=== PATIENT | female | born 1960 | race Caucasian/White ===

== ENCOUNTER 2016-06-28 17:17 | Emergency (ER) | payer OTHER ==
[~2016-06-28] VITALS: Ht 157.5 cm; Wt 136.1 kg
[~2016-06-28 17:17] MED LIST: CYMBALTA60 M1 PO; DIAZEPAM5 MG PO; DULOXETINE30 MG PO; HYDROXYCHLOROQ200 MG PO; LISINOPRIL20 MG PO; LISINOPRIL40 MG PO; MORPHINE SULFA PO; OXYCODONE HYDRO15 MG PO; PATADAY 2.5 ML2.5 ML OPH; SENOKOT S 50 MG1 TAB PO; TRAZODONE HCL50 M1 PO; TRIAMCINOLONE A15 G3 TOP; VALACYCLOVIR1000 MG PO
[2016-06-28] MEDS ORDERED: MIRALAX17 G1 PO (19:04)
--- NOTE | 2016-06-28 19:04 | ED UPPER/LOWER EXTREMITY COMPL ---
History of Present Illness General Chief Complaint: Lower Extremity Problems Stated Complaint: LEG DRAINAGE Source: patient, family Exam Limitations: no limitations Vital Signs & Intake/Output Vital Signs & Intake/Output Vital Signs Date Time Temp Pulse Resp B/P Pulse O2 O2 Flow FiO2 Ox Delivery Rate 06/28 2014 96 Room Air 06/28 2005 97.0 85 20 152/76 95 Room Air 06/28 1728 98.2 90 16 169/96 96 Room Air Allergies Coded Allergies: NO KNOWN ALLERGIES (06/28/16) Reconcile Medications Duloxetine HCl (Cymbalta) 60 MG CAPSULE.DR 1 CAP PO DAILY ANXIETY (Reported) Hydroxychloroquine Sulfate 200 MG TAB 1 TAB PO DAILY LUPUS (Reported) Lisinopril 40 MG TAB 1 TAB PO DAILY BP (Reported) Morphine Sulfate (Morphine Sulfate ER) 120 MG CPMP.24HR 1 TAB PO DAILY PAIN ( Reported) Oxycodone Hydrochloride 15 MG TAB 1-2 TAB PO Q4-6H PRN PAIN (Reported) Polyethylene Glycol 3350 (Miralax) 17 GRAM POWD.PACK 1 PAC PO PRN CONSTIPATION (Reported) dissolve in water Triage Note: COMPLAINS OF R SIDE LOWER EXTREMITY REDNESS AND CLEAR FLUID DRAINAGE. SAW HER VEING DOCTOR 2 WEEKS AGO, STATES THAT HE CAN'T SEE HER INTILL MONDAY AND PMD TOLD HER TO COME TO ER. Triage Nurses Notes Reviewed? yes Onset: Gradual Duration: week(s): (1) Timing: recent history Severity: moderate Severity Numbers: 6 Pain/Injury Location: Bilateral: Leg. Method of Injury: unknown No Modifying Factors: none HPI: Patient is a 55-year-old female with history of bilateral leg edema and vascular issues presenting to the emergency department chief complaining of increasing lower extremity edema, right lower extremity redness and weeping this pain getting worse over the past one week. Denies any shortness of breath chest pain or palpitations. She tried calling her vascular doctor who told her to come into the emergency department for evaluation of CHF. Patient denies history of CHF. She reports lower extremity edema has increased over the past several days. Unsure about any weight changes. Denies any coughing. No trouble sleeping. her lower extremity is or red during the day because a rub on things, they become within normal range while she sleeps. (MEME GRANDE,OLIVIA) Past History Travel History Traveled to [place] past 21 day No Medical History Any Pertinent Medical History? see below for history Neurological: NONE EENT: DEVIATED SEPTUM Cardiovascular: hypertension Respiratory: NONE Gastrointestinal: NONE Hepatic: NONE Renal: NONE Musculoskeletal: fibromyalgia, rheumatoid arthritis, LUPUS Psychiatric: NONE Endocrine: NONE Other Medical Hx: morbid obesity History of MRSA: No History of VRE: No History of CDIFF: No Surgical History Surgical History: right total knee replacement Psychosocial History Who do you live with Spouse Services at Home None What is your primary language Moldovan Tobacco Use: Never used ETOH Use: denies use Illicit Drug Use: denies illicit drug use Family History Family History, If Any: FATHER (lung cancer). grandmother (HTN, DM). Hx Contributory? No (OLIVIA MATTA) Review of Systems Review of Systems Constitutional: Reports: no symptoms. Comments Review of systems: See HPI, All other systems negative. Constitutional, no chills fever or weight loss HEENT: No visual changes no sore throat no congestion Cardiovascular: No chest pain ,palpitation , orthopnea Skin, no jaundice no rashes Respiratory: No dyspnea cough sputum or hemoptysis GI: No nausea no vomiting : No dysuria No hematuria Muscle skeletal: no back pain, no neck pain, Neurologic: No numbness no confusion Psych: No stress anxiety or depression,. Heme/endocrine: No bruising no bleeding no polyuria or polydipsia Immunology: No splenectomy or history of AIDS (OLIVIA MATTA) Physical Exam Physical Exam General Appearance: well developed/nourished, no apparent distress, alert, awake , comfortable, obese Comments: obese person in no acute distress HEENT: Pupils equally round and reactive to light and accommodation. Nose is atraumatic. Neck: Normal inspection Back: Nontender Cardiovascular: Regular rate and rhythms no murmurs rubs or gallops, normal JVP Respiratory: Chest nontender. No respiratory distress.breath sounds clear to auscultation bilaterally Extremity: Extensive edema and lower extremity bilaterally, nonpitting, no calf tenderness to palpation, normal and equal pulses. no blister or obvious weeping. pedal pulses are 1 plus bilaterally. Neuro: Alert oriented x3, motor sensory normal Skin: Blanchable erythema noted on the lower extremities from mid iglesisa down to the dorsum of the feet bilaterally. Psych: Mood and affect is normal, memory and judgment is normal. (OLIVIA MATTA) Progress Differential Diagnosis: lymphedema, cellulitis, DVT, CHF Plan of Care: Orders Procedure Date/time Status COMPREHENSIVE METABOLIC PANEL 06/28 1902 Complete CBC WITHOUT DIFFERENTIAL 06/28 1902 Complete B-TYPE NATRIURETIC PEP (BNP) 06/28 1902 Complete Laboratory Tests 06/28/16 2000: Anion Gap 8, Estimated GFR > 60, BUN/Creatinine Ratio 26.7 H, Glucose 102 H, Calcium 10.4 H, Total Bilirubin 0.4, AST 30, ALT 15, Alkaline Phosphatase 67, Uay-C-Wdtrfxzvfbb Pept 63.5, Total Protein 8.4 H, Albumin 3.7, Globulin 4.7 H, Albumin/Globulin Ratio 0.8 L, CBC w Diff NO MAN DIFF REQ, RBC 4.07 L, MCV 86.3 , MCH 28.5, RDW 15.2 H, MPV 7.6, Gran % 54.7, Lymphocytes % 31.3, Monocytes % 9.8 H, Eosinophils % 3.3, Basophils % 0.9, Absolute Granulocytes 3.4, Absolute Lymphocytes 1.9, Absolute Monocytes 0.6, Absolute Eosinophils 0.2, Absolute Basophils 0.1, PUBS MCHC 33.0 Diagnostic Imaging: Viewed by Me: Radiology Read, Ultrasound. Discussed w/RAD: Radiology Read, Ultrasound. Hand-Off Endorsed To: ELLIS CRAVEN,POONAM Atwood Endorsed Time: 1948 Pending: labs (MEME RGANDE,OLIVIA) Radiology Impression: PATIENT: LEO SALAZAR PRESENT AGE: 55 PATIENT ACCOUNT NO: [id number] : 56 LOCATION: [facility] ORDERING PHYSICIAN: OLIVIA GRANDE SERVICE DATE: 06/28/16 EXAM TYPE: US - US-EXT BILAT VENOUS DOPPLER EXAMINATION: US TRIPLEX LOWER EXTREMITY, BILATERAL CLINICAL INFORMATION: Edema and pain in lower leg. COMPARISON: None. TECHNIQUE: Color-flow triplex imaging with spectral analysis and compression Doppler were performed on the bilateral lower extremities. The study is limited due to patient body habitus. FINDINGS: Respiratory variation, normal compression and augmented flow are noted throughout the bilateral lower extremities. The visualized common femoral vein, superficial femoral vein, profunda femoral vein, popliteal vein and mid calf peroneal and posterior tibial venous segments show no evidence of deep venous thrombosis. There is no Mckay's cyst. IMPRESSION: Normal triplex scan without evidence of deep venous thrombosis involving the bilateral lower extremities. DICTATED BY: POONAM KWONG MD DATE/TIME DICTATED :06/28/161949 FRONT END ARCHITECT:KARIN DATE/TIME TRANSCRIBED:06/28/161949 CONFIDENTIAL, DO NOT COPY WITHOUT APPROPRIATE AUTHORIZATION. < Electronically signed in Other Vendor System> SIGNED BY: POONAM KWONG MD 06/28/161954 CXR Impression: PATIENT: LEO SALAZAR PRESENT AGE: 55 PATIENT ACCOUNT NO: [id number] : 56 LOCATION: [facility] ORDERING PHYSICIAN: OLIVIA GRANDE SERVICE DATE: 06/28/16 EXAM TYPE: RAD - XRY-CHEST XRAY, PA AND LATERAL EXAMINATION: XR CHEST CLINICAL INFORMATION: Cardiomegaly. Leg edema. COMPARISON: None. TECHNIQUE: AP and lateral views of the chest were obtained. FINDINGS: Lungs are clear. No pulmonary vascular congestion. No infiltrate or pleural effusion. The cardiac and mediastinal contours are normal. There are multilevel degenerative changes of dorsal spine. IMPRESSION: No acute abnormality of the chest. DICTATED BY: JOHNATHON NEGRON MD DATE/TIME DICTATED:06/28/161951 FRONT END ARCHITECT:KARIN DATE/TIME TRANSCRIBED:1951 CONFIDENTIAL, DO NOT COPY WITHOUT APPROPRIATE AUTHORIZATION. < Electronically signed in Other Vendor System> SIGNED BY: JOHNATHON NEGRON MD 1956 Comments: Labs, x-ray and ultrasound have been discussed with patient and her . Questions have been answered. They feel comfortable going home. (ELLIS CRAVEN,POONAM Atwood) Departure Departure Disposition: HOME OR SELF CARE Condition: Stable Clinical Impression Primary Impression: Leg edema Qualifiers: Laterality: bilateral Qualified Code: R60.0 - Localized edema Referrals: GRAYSON CRAVEN,ERIS Vences (PCP/Family) Departure Forms: Customer Survey General Discharge Information (OLIVIA MATTA) Departure Additional Instructions: KEEP UP HE GOOD WORK WITH WALKING A MILE AND A HALF BUT KEEP YOUR LEGS ELEVATED WHEN YOU ARE NOT ON THEM RETURN IF SYMPTOMS WORSEN OR NEEDED PA/TECHNOLOGY CONSULTANT Co-Sign Statement Statement: ED Attending supervision documentation- [X] I saw and evaluated the patient. I have also reviewed all the pertinent lab results and diagnostic results. I agree with the findings and the plan of care as documented in the PA's/TECHNOLOGY CONSULTANT's documentation. [X] I have reviewed the ED Record and agree with the PA's/TECHNOLOGY CONSULTANT's documentation. [] Additions or exceptions (if any) to the PAs/TECHNOLOGY CONSULTANT's note and plan are summarized below: [] (ELLIS CRAVEN,POONAM Atwood)
--- NOTE | 2016-06-28 19:55 | ULTRASOUND REPORT ---
EXAMINATION: US TRIPLEX LOWER EXTREMITY, BILATERAL CLINICAL INFORMATION: Edema and pain in lower leg. COMPARISON: None. TECHNIQUE: Color-flow triplex imaging with spectral analysis and compression Doppler were performed on the bilateral lower extremities. The study is limited due to patient body habitus. FINDINGS: Respiratory variation, normal compression and augmented flow are noted throughout the bilateral lower extremities. The visualized common femoral vein, superficial femoral vein, profunda femoral vein, popliteal vein and mid calf peroneal and posterior tibial venous segments show no evidence of deep venous thrombosis. There is no Mckay's cyst. IMPRESSION: Normal triplex scan without evidence of deep venous thrombosis involving the bilateral lower extremities.
--- NOTE | 2016-06-28 19:57 | RADIOLOGY REPORT ---
EXAMINATION: XR CHEST CLINICAL INFORMATION: Cardiomegaly. Leg edema. COMPARISON: None. TECHNIQUE: AP and lateral views of the chest were obtained. FINDINGS: Lungs are clear. No pulmonary vascular congestion. No infiltrate or pleural effusion. The cardiac and mediastinal contours are normal. There are multilevel degenerative changes of dorsal spine. IMPRESSION: No acute abnormality of the chest.
[2016-06-28 20:14] LABS: ABSOLUTE BASOPHIL COUNT 0.1 /CUMM (0.0-0.2); ABSOLUTE EOSINOPHIL COUNT 0.2 /CUMM (0.0-0.7); ABSOLUTE GRANULOCYTE CT 3.4 /CUMM (1.4-6.5); ABSOLUTE LYMPH COUNT 1.9 /CUMM (1.2-3.4); ABSOLUTE MONOCYTE COUNT 0.6 /CUMM (0.10-0.60); BASOPHIL % 0.9 % (0.0-2.0); EOSINOPHIL % 3.3 % (0-5); GRANULOCYTE % 54.7 % (42.2-75.2); HEMATOCRIT 35.1 % (37-47); MEAN CORPUSCULAR HGB 28.5 PG (27.0-31.0); MEAN CORPUSCULAR VOLUME 86.3 FL (81.0-99.0); MEAN PLATELET VOLUME 7.6 FL (7.4-10.4); PLATELET COUNT 265 /CUMM (130-400); RBC DISTRIBUTION WIDTH 15.2 % (11.5-14.5); RED BLOOD CELL CT 4.07 /CUMM (4.20-5.40); WHITE BLOOD CELL COUNT 6.2 /CUMM (4.8-10.8)
[2016-06-28 20:59] VITALS: BP 175/84
== END 2016-06-28 21:03 ==
LOC: ERH 17:17
PROVIDERS: Physician Assistant
DX: R60.0 Localized edema (principal)
CPT/HCPCS: 93970

== ENCOUNTER 2016-08-05 22:13 | Emergency (ER) | payer OTHER ==
[~2016-08-05] VITALS: Ht 157.5 cm; Wt 136.1 kg
[~2016-08-05 22:13] MED LIST changes: +MIRALAX17 G1 PO
[2016-08-05 22:16] VITALS: BP 179/98
--- NOTE | 2016-08-05 22:36 | ED UPPER/LOWER EXTREMITY COMPL ---
History of Present Illness General Chief Complaint: Lower Extremity Problems Stated Complaint: "RT CALF PAIN,SWELLING,REDNESS,WARM TO TOUCH" Source: patient Exam Limitations: no limitations Vital Signs & Intake/Output Vital Signs & Intake/Output Vital Signs Date Time Temp Pulse Resp B/P Pulse O2 O2 Flow FiO2 Ox Delivery Rate 08/05 2216 98.0 88 18 179/98 94 Room Air Allergies Coded Allergies: NO KNOWN ALLERGIES (06/28/16) Reconcile Medications Duloxetine HCl (Cymbalta) 60 MG CAPSULE.DR 1 CAP PO DAILY ANXIETY (Reported) Hydroxychloroquine Sulfate 200 MG TAB 1 TAB PO DAILY LUPUS (Reported) Lisinopril 40 MG TAB 1 TAB PO DAILY BP (Reported) Lotrisone (Lotrisone Cream) 1 %-0.05 % CREAM..G. 1 CAROL ANN TOP TID yeast infection apply to affected area(s) x 10 days Morphine Sulfate (Morphine Sulfate ER) 120 MG CPMP.24HR 1 TAB PO DAILY PAIN ( Reported) Oxycodone Hydrochloride 15 MG TAB 1-2 TAB PO Q4-6H PRN PAIN (Reported) Polyethylene Glycol 3350 (Miralax) 17 GRAM POWD.PACK 1 PAC PO PRN CONSTIPATION (Reported) dissolve in water Triage Note: PT TO TRIAGE WITH C/O R CALF SWELLING, REDNESS, AND PAIN 01/02 SINCE 07/28 WHEN PT HAD SCLEROTHERAPY DONE. PT HAS NO OTHER COMPLAINTTS, VSS. Triage Nurses Notes Reviewed? yes Onset: Gradual Duration: day(s):, getting worse Timing: recent history Severity: moderate Pain/Injury Location: Right: Leg. Method of Injury: right lower extemity rash x 2-3 days No Modifying Factors: none Modifying Factors: Worsens With: other (worse w/ itching). Associated Symptoms: redness HPI: 55-year-old woman with chronic lymphedema in both extremities presents with a rash on her distal right iglesias. She notes that the rash is red and itchy. She notes that it has been spreading away from her body towards the ankle. It is not tender. She has no increased swelling. She has no fever or chills. She has no other concerns. Past History Travel History Traveled to [place] past 21 day No Medical History Any Pertinent Medical History? see below for history Neurological: NONE EENT: DEVIATED SEPTUM Cardiovascular: hypertension Respiratory: NONE Gastrointestinal: NONE Hepatic: NONE Renal: NONE Musculoskeletal: fibromyalgia, rheumatoid arthritis, LUPUS Psychiatric: NONE Endocrine: NONE Other Medical Hx: morbid obesity History of MRSA: No History of VRE: No History of CDIFF: No Surgical History Surgical History: right total knee replacement Psychosocial History Who do you live with Spouse Services at Home None What is your primary language French Tobacco Use: Never used Family History Family History, If Any: FATHER (lung cancer). grandmother (HTN, DM). Hx Contributory? No Review of Systems Review of Systems Constitutional: Reports: no symptoms. EENTM: Reports: no symptoms. Respiratory: Reports: no symptoms. Cardiovascular: Reports: no symptoms. Gastrointestinal/Abdominal: Reports: no symptoms. Genitourinary: Reports: no symptoms. Musculoskeletal: Reports: no symptoms. Skin: Reports: no symptoms. Neurological/Psychological: Reports: no symptoms. Hematologic/Endocrine: Reports: no symptoms. Immunological: Reports: no symptoms. All Other Systems: Reviewed and Negative Physical Exam Physical Exam General Appearance: well developed/nourished, mild distress Head: atraumatic Eyes: Bilateral: normal appearance. Ears, Nose, Throat: normal pharynx, normal ENT inspection, hearing grossly normal Neck: normal inspection, supple Cardiovascular/Respiratory: regular rate/rhythm Back: normal inspection Leg Left: chronic lymphedema without signs of infection. Leg Right: blanching erythematous rash on the distal right lower extremity approximately 10 x 10 cm with satellite lesions approximately. It is not warm to touch. It is not tender to palpation. There is no increased edema. Skin: intact, normal color, warm/dry Lymphatic: no anterior cervical malick Progress Differential Diagnosis: cellulitis, yeast infection, versus other Plan of Care: Her rash is most consistent with a fungal skin infection. It is not tender or warm to palpation I doubt DVT given that her edema is symmetric and the same between both legs. I prescribed time focal Lotrisone and advocated close follow -up symptoms worsen. Departure Departure Disposition: HOME OR SELF CARE Condition: Stable Clinical Impression Primary Impression: Yeast infection of the skin Referrals: ERIS GALICIA MD (PCP/Family) Departure Forms: Customer Survey General Discharge Information Prescriptions: Current Visit Scripts Lotrisone (Lotrisone Cream) 1 CAROL ANN TOP TID #30 GM apply to affected area(s) x 10 days
[2016-08-05] MEDS ORDERED: LOTRISONE CREAM15 G1 TOP (22:38)
== END 2016-08-05 23:29 ==
LOC: ERH 22:13
DX: B37.2 Candidiasis of skin and nail (principal)

== ENCOUNTER 2016-09-04 20:35 | Emergency (ER) | payer OTHER ==
[~2016-09-04 20:35] MED LIST changes: +LOTRISONE CREAM15 G1 TOP
[2016-09-04 20:39] VITALS: BP 155/95
--- NOTE | 2016-09-04 20:56 | ED SKIN/ALLERGY COMPLAINT ---
History of Present Illness General Chief Complaint: Skin Rash/ Abcess Stated Complaint: SKIN RASH Source: patient Exam Limitations: no limitations Vital Signs & Intake/Output Vital Signs & Intake/Output Vital Signs Date Time Temp Pulse Resp B/P Pulse O2 O2 Flow FiO2 Ox Delivery Rate 09/04 2038 98.0 86 18 155/95 95 Room Air Allergies Coded Allergies: NO KNOWN ALLERGIES (06/28/16) Reconcile Medications Duloxetine HCl (Cymbalta) 60 MG CAPSULE.DR 1 CAP PO DAILY ANXIETY (Reported) Hydroxychloroquine Sulfate 200 MG TAB 1 TAB PO DAILY LUPUS (Reported) Lisinopril 40 MG TAB 1 TAB PO DAILY BP (Reported) Lotrisone (Lotrisone Cream) 1 %-0.05 % CREAM..G. 1 CAROL ANN TOP TID yeast infection apply to affected area(s) x 10 days Morphine Sulfate (Morphine Sulfate ER) 120 MG CPMP.24HR 1 TAB PO DAILY PAIN ( Reported) Oxycodone Hydrochloride 15 MG TAB 1-2 TAB PO Q4-6H PRN PAIN (Reported) Polyethylene Glycol 3350 (Miralax) 17 GRAM POWD.PACK 1 PAC PO PRN CONSTIPATION (Reported) dissolve in water Triage Note: COMPLAINS OF ITCHY RASH TO BILATERAL LOWER EXTREMITIES, WAS DIAGNOSED WITH FUNGAL INFECTION AND WAS PRESCRIBED CREAM, HAS APPOINTMENT WITH GLUING MACHINE FEEDER IN 2 WEEKS Triage Nurses Notes Reviewed? yes Onset: Gradual Duration: week(s):, waxing and waning Timing: recent history Severity: mild Location: lower extremity rash Modifying Factors: Improves With: topical steroids. Associated Symptoms: redness and itching HPI: 56-year-old woman with significant lymphedema presents with a rash on the distal ends of both lower extremities. She states that I previously given her prescription of Lotrisone which she was taking 3 times a day. She states the medication helped a great deal. However, she ran out of her medication. She states that her primary care doctor do not feel comfortable refilling the medication. She has appointment with the offset printing pressmen in several weeks. She presents here hoping for refill of her Lotrisone. She has no pain, increased swelling, fever, she is otherwise well. Past History Travel History Traveled to [place] past 21 day No Medical History Any Pertinent Medical History? see below for history Neurological: NONE EENT: DEVIATED SEPTUM Cardiovascular: hypertension Respiratory: NONE Gastrointestinal: NONE Hepatic: NONE Renal: NONE Musculoskeletal: fibromyalgia, rheumatoid arthritis, LUPUS Psychiatric: NONE Endocrine: NONE Other Medical Hx: morbid obesity History of MRSA: No History of VRE: No History of CDIFF: No Surgical History Surgical History: right total knee replacement Psychosocial History Who do you live with Spouse Services at Home None What is your primary language Palestinian Tobacco Use: Never used ETOH Use: denies use Illicit Drug Use: denies illicit drug use Family History Family History, If Any: FATHER (lung cancer). grandmother (HTN, DM). Hx Contributory? No Review of Systems Review of Systems Constitutional: Reports: no symptoms. EENTM: Reports: no symptoms. Respiratory: Reports: no symptoms. Cardiovascular: Reports: no symptoms. GI: Reports: no symptoms. Genitourinary: Reports: no symptoms. Musculoskeletal: Reports: no symptoms. Skin: Reports: no symptoms. Neurological/Psychological: Reports: no symptoms. Hematologic/Endocrine: Reports: no symptoms. Immunologic/Allergic: Reports: no symptoms. All Other Systems: Reviewed and Negative Physical Exam Physical Exam General Appearance: well developed/nourished, mild distress Head: atraumatic Ears, Nose, Throat: normal pharynx, normal ENT inspection Neck: normal inspection, supple, full range of motion Respiratory: normal breath sounds, chest non-tender, no respiratory distress, quiet respiration, lungs clear Extremities: skin changes characteristic of a fungal skin infection. No sign of worsening edema. No tenderness. No sign of bacterial type infection. Neurologic/Psych: no motor/sensory deficits, awake, alert, oriented x 3 Skin: intact, normal color Progress Differential Diagnosis: skin infection versus chronic changes versus venous stasis versus other. Plan of Care: Refill of Lotrisone given. Departure Departure Disposition: HOME OR SELF CARE Condition: Stable Clinical Impression Primary Impression: Fungal skin infection Referrals: GALICIA ERIS CRAVEN (PCP/Family) Departure Forms: Customer Survey General Discharge Information Prescriptions: Current Visit Scripts Lotrisone (Lotrisone Cream) 1 CAROL ANN TOP TID #30 GM apply to affected area(s) x 10 days
[2016-09-04] MEDS ORDERED: LOTRISONE CREAM15 G1 TOP (20:57)
== END 2016-09-04 21:25 ==
LOC: ERH 20:35
DX: B36.9 Superficial mycosis, unspecified (principal)

== ENCOUNTER 2016-10-11 19:26 | Emergency (ER) | payer OTHER ==
[~2016-10-11] VITALS: Ht 157.5 cm; Wt 136.1 kg
--- NOTE | 2016-10-11 21:56 | ED GENERAL ADULT ---
History of Present Illness General Chief Complaint: Lower Extremity Problems Stated Complaint: BILATERAL LEG WEEPING PER PT Source: patient, family, old records Exam Limitations: no limitations Vital Signs & Intake/Output Vital Signs & Intake/Output Vital Signs Date Time Temp Pulse Resp B/P Pulse O2 O2 Flow FiO2 Ox Delivery Rate 10/11 2001 97.9 77 18 157/91 97 Room Air Allergies Coded Allergies: NO KNOWN ALLERGIES (06/28/16) Reconcile Medications Duloxetine HCl (Cymbalta) 60 MG CAPSULE.DR 1 CAP PO DAILY ANXIETY (Reported) Morphine Sulfate (Morphine Sulfate ER) 120 MG CPMP.24HR 1 TAB PO DAILY PAIN ( Reported) Oxycodone Hydrochloride 15 MG TAB 1-2 TAB PO Q4-6H PRN PAIN (Reported) Polyethylene Glycol 3350 (Miralax) 17 GRAM POWD.PACK 1 PAC PO PRN CONSTIPATION (Reported) dissolve in water Triage Note: RECEIVED 56 YO FEMALE C/O WEEPING LOWER EXTREMITY EDEMA X 3 WEEKS. PT HAS AN APPOINTMENT THIS COMING MONDAY WITH VEIN DR, DR PITT. PT WAS HERE 3 MONTHS AGO FOR SAME. PT WAS HERE ABOUT A MONTH AND A HALF AGO, SEEN DR LIMA AND DX WITH FUNGAL INFECTION OF LOWER EXTREMITIES. Triage Nurses Notes Reviewed? yes HPI: Patient is a 56-year-old female presents complaining of bilateral lower extremity edema and at times fluid weeping from her legs. Patient reports that she has had chronic lower extremity edema that has been worsening over the past 1-2 weeks. Patient was placed on 20 mg of frusemide approximately 1.5 weeks ago by her vascular specialist Dr. Clemens. Patient has an appointment with her vascular specialist on . Patient reports that she also has a infection to her left lower extremity that she has been using an ointment for which has helped him Under control. Patient is an appointment with her filter screen cleaner on October 24. Swelling is currently severe. Patient denies chest pain, dyspnea. Past History Travel History Traveled to [place] past 21 day No Medical History Any Pertinent Medical History? see below for history Neurological: NONE EENT: DEVIATED SEPTUM Cardiovascular: hypertension Respiratory: NONE Gastrointestinal: NONE Hepatic: NONE Renal: NONE Musculoskeletal: fibromyalgia, rheumatoid arthritis, LUPUS Psychiatric: NONE Endocrine: NONE Other Medical Hx: morbid obesity History of MRSA: No History of VRE: No History of CDIFF: No Surgical History Surgical History: right total knee replacement Psychosocial History Who do you live with Spouse Services at Home None What is your primary language Korean Tobacco Use: Never used Family History Family History, If Any: FATHER (lung cancer). grandmother (HTN, DM). Hx Contributory? No Review of Systems Review of Systems Constitutional: Denies: chills, fever. EENTM: Reports: no symptoms. Respiratory: Denies: cough, short of breath. Cardiovascular: Reports: peripheral edema (chronic). Denies: chest pain. GI: Denies: abdominal pain, nausea, vomiting. Skin: Reports: see HPI. Neurological/Psychological: Reports: no symptoms. Hematologic/Endocrine: Reports: no symptoms. Immunologic/Allergic: Reports: no symptoms. Physical Exam Physical Exam General Appearance: well developed/nourished, alert, awake Head: atraumatic, normal appearance Eyes: Bilateral: normal appearance, PERRL, EOMI. Ears, Nose, Throat: hearing grossly normal Neck: normal inspection, supple, full range of motion Respiratory: normal breath sounds, chest non-tender, no respiratory distress, lungs clear Cardiovascular: regular rate/rhythm (no appreciable murmur) Back: normal inspection, normal range of motion Extremities: 4+ bilateral lower extremity edema. Minimal serous fluid weeping from the lower extremities. Skin thickening to the right posterior leg. Mild red maculopapular rash to the left mid pretibial area. Neurologic/Psych: awake, alert, oriented x 3 Skin: see extremities exam Core Measures ACS in differential dx? No CVA/TIA Diagnosis: No Severe Sepsis Present: No Septic Shock Present: No Progress Differential Diagnoses I considered the following diagnoses in my evaluation of the patient: Venous insufficiency, congestive heart failure, lymphedema Plan of Care: No apparent signs of cellulitis. Patient has an appointment with her vascular specialist on October 13. Will have patient increase her dose of Lasix between now and then, elevate her legs, and follow-up closely outpatient. Labs and imaging deferred. Initial ED EKG: none Departure Departure Time of Disposition: 2153 Disposition: HOME OR SELF CARE Condition: Stable Clinical Impression Primary Impression: Bilateral lower extremity edema Referrals: DWAYNE CRAVEN,GRACIA GALICIA MD,ERIS Vences (PCP/Family) Additional Instructions: Follow up with Dr. Isaacs on as scheduled. Increase your Furosemide( lasix) dose to 40mg a day until you see the vascular specialist. Elevate your legs as much as possible when you are at rest. Return to the ER if fevers, redness spreading, difficulty breathing Departure Forms: Customer Survey General Discharge Information Critical Care Note Critical Care Note Critical Care Time: non-applicable
[2016-10-11 22:01] VITALS: BP 182/85
== END 2016-10-11 22:06 ==
LOC: ERH 19:26
DX: R60.0 Localized edema (principal)

== ENCOUNTER 2016-10-22 20:07 | Emergency (ER) | payer OTHER ==
--- NOTE | 2016-10-22 20:48 | ED UPPER/LOWER EXTREMITY COMPL ---
History of Present Illness General Chief Complaint: Laceration Procedure Stated Complaint: " LT LEG LAC" Source: patient, old records Exam Limitations: no limitations Vital Signs & Intake/Output Vital Signs & Intake/Output Vital Signs Date Time Temp Pulse Resp B/P B/P Pulse O2 O2 Flow FiO2 Mean Ox Delivery Rate 10/22 2150 97.5 78 18 142/84 97 Room Air Room Air 10/22 2030 97.9 80 16 152/85 96 Room Air Allergies Coded Allergies: NO KNOWN ALLERGIES (UNKNOWN 10/22/16) Reconcile Medications Duloxetine HCl (Cymbalta) 60 MG CAPSULE.DR 1 CAP PO DAILY ANXIETY (Reported) Morphine Sulfate (Morphine Sulfate ER) 120 MG CPMP.24HR 1 TAB PO DAILY PAIN ( Reported) Oxycodone Hydrochloride 15 MG TAB 1-2 TAB PO Q4-6H PRN PAIN (Reported) Polyethylene Glycol 3350 (Miralax) 17 GRAM POWD.PACK 1 PAC PO PRN CONSTIPATION (Reported) dissolve in water Triage Note: TRIAGE; PT TO ED STATING SHE ACCIDENTALLY CUT HER LEFT LEG WITH A KNIFE EARLIER. HAD A DSG IN PLACE AND WAS TRYING TO GET IT OFF SO SHE USED A KNIFE. NOT VISUALIZED IN TRIAGE. SOME BLEEDING NOTED ON DSG. Triage Nurses Notes Reviewed? yes Onset: Abrupt Duration: hour(s): (1), constant Timing: recent history Severity: mild Severity Numbers: 4 Pain/Injury Location: Left: Leg. Method of Injury: laceration No Modifying Factors: none Associated Symptoms: none HPI: 56-year-old male presents emergency room status post sustaining a laceration to her left leg just prior to arrival when she accidentally cut it with a knife after she was attempting to take a dressing off of her leg. Her last tetanus is unknown. She is complaining of mild aching pain to the region no other injury no numbness or tingling. No difficulty with weightbearing on the leg. She is not taken anything for symptomsassociated symptoms modifying factors or radiation of pain. (BRIGHT BAR) Past History Travel History Traveled to [place] past 21 day No Medical History Any Pertinent Medical History? see below for history Neurological: NONE EENT: DEVIATED SEPTUM Cardiovascular: hypertension Respiratory: NONE Gastrointestinal: NONE Hepatic: NONE Renal: NONE Musculoskeletal: fibromyalgia, rheumatoid arthritis, LUPUS Psychiatric: NONE Endocrine: NONE Other Medical Hx: morbid obesity History of MRSA: No History of VRE: No History of CDIFF: No Surgical History Surgical History: right total knee replacement Psychosocial History Who do you live with Spouse Services at Home None What is your primary language Montenegrin Tobacco Use: Never used Family History Family History, If Any: FATHER (lung cancer). grandmother (HTN, DM). Hx Contributory? No (BRIGHT BAR) Review of Systems Review of Systems Constitutional: Reports: see HPI. All Other Systems: Reviewed and Negative Comments Review of systems: See HPI, All other systems negative. Constitutional, no chills no fever, no malaise no weight loss HEENT: No visual changes no sore throat no congestion, no ear pain Cardiovascular: No chest pain , no palpitation , no orthopnea Skin: no rashes, no change in skin Respiratory: No dyspnea no cough no sputum no hemoptysis GI: No nausea no vomiting, no diarrhea, no bloating/constipation : No dysuria No hematuria, no frequency, no discharge Muscle skeletal: No joint pain, no joint swelling, no back pain, no neck pain, Neurologic: No numbness no confusion, no headache Psych: No stress no depression,. Heme/endocrine: No bruising no bleeding Immunology: No lymphadenopathy (BRIGHT BAR) Physical Exam Physical Exam General Appearance: well developed/nourished, no apparent distress, alert, awake Comments: Morbidly obese female patient in no apparent distress. HEENT: Atraumatic, extraocular motion intact Neck: Supple, FROM Back: FROM Cardiovascular: Regular rate and rhythms no murmurs Respiratory: No respiratory distress. Patient speaking in full complete sentences. Breath sounds clear to auscultation bilaterally: NO W/R/R Upper Extremities: full range of motion Hip/Pelvis: Atraumatic/Stable. FROM. Knee: Atraumatic/stable. FROM. No joint swelling Leg: He is a 0.5 cm skin abrasion noted to the left medial lower leg no active bleeding, there are no other lacerations or abrasions to the skin Nontender. 4+ pitting edema bilaterally edema, 5 out of 5 strength in the lower extremity, normal dorsiflexion of great toe bilaterally, gross sensation is intact, Ankle/Foot: Atraumatic/stable. Skin intact. FROM. No swelling, no effusion. No laxity on exam Pulses: Normal/equal DP/PT pulses bilaterally. Brisk cap refill Neuro: awake, alert, and oriented to person, place and time. There were no obvious focal neurologic abnormalities. Skin: Warm & dry;No appreciable rash on exposed skin Psych: Mood affect normal, normal memory normal judgment. (BRIGHT BAR) Progress Differential Diagnosis: cellulitis, compartment syndrome, contusion, fracture, sprain, tendon injury Plan of Care: Current Medications Sig/Deuce Start time Last Medication Dose Stop Time Status Admin Tetanus/Diphtheria 0.5 ML ONCE ONE 10/22 2114 UNVr Toxoids Adsorbed 10/23 2115 (Decavac) The wound was thoroughly irrigated with normal saline Betadine peroxide. Dermabond was applied to the wound, sterile dressing applied The wound edges were approximated well (BRIGHT BAR) Departure Departure Time of Disposition: 2105 Disposition: HOME OR SELF CARE Condition: Stable Clinical Impression Primary Impression: Leg laceration Referrals: ERIS GALICIA MD (PCP/Family) Additional Instructions: continue with dressings as discussed. follow up with your pmd or return to the er with any concerns or signs of infection: redness, warmth, swelling, discharge , fever or chills. Departure Forms: Customer Survey General Discharge Information (BRIGHT BAR) PA/ELECTRONICS DEPARTMENT MANAGER Co-Sign Statement Statement: ED Attending supervision documentation- [] I saw and evaluated the patient. I have also reviewed all the pertinent lab results and diagnostic results. I agree with the findings and the plan of care as documented in the PA's/ELECTRONICS DEPARTMENT MANAGER's documentation. [X] I have reviewed the ED Record and agree with the PA's/ELECTRONICS DEPARTMENT MANAGER's documentation. [] Additions or exceptions (if any) to the PAs/ELECTRONICS DEPARTMENT MANAGER's note and plan are summarized below: [] (KENYON CRAVEN,ZACHARIAH) Procedures Laceration/Wound Repair Laceration/Wound Repair: Wound Location: lower extremity Wound's Depth, Shape: linear, superficial Wound Length (cm): 0.5 Wound Explored: clean, no foreign body removed, irrigated extensively Irrigated w/ Saline (ccs): 100 Betadine Prep? Yes Wound Repaired With: Dermabond Sterile Dressing Applied: Yes Date of Last Tetanus: 10/22/16 Tetanus Status: not up to date (BRIGHT BAR)
[2016-10-22 21:51] VITALS: BP 142/84
== END 2016-10-22 21:52 ==
LOC: ERH 20:07
DX: S81.812A Laceration without foreign body, left lower leg, initial encounter (principal); W26.0XXA Contact with knife, initial encounter; Y93.89 Activity, other specified; Y92.9 Unspecified place or not applicable
CPT/HCPCS: 90714

== ENCOUNTER 2016-10-31 18:38 | Emergency (ER) | payer OTHER ==
[2016-10-31] MEDS ORDERED: OXYCODONE HCL15 M1 PO (19:59)
[2016-10-31] MEDS ORDERED: HYDROXYCHLOROQ200 M2 PO (20:00)
[2016-10-31] MEDS ORDERED: MORPHINE SULFA PO (20:00)
[2016-10-31] MEDS ORDERED: LISINOPRIL40 M1 PO (20:00)
[2016-10-31] MEDS ORDERED: DULOXETINE HCL30 MG PO (20:01)
[2016-10-31] MEDS ORDERED: FUROSEMIDE20 M1 PO (20:01)
[2016-10-31] MEDS ORDERED: PATADAY2.5 ML OPH (20:01)
[2016-10-31] MEDS ORDERED: MUPIROCIN22 GM TOP (20:02)
[2016-10-31] MEDS ORDERED: BETAMETHASONE D15 G4 TOP (20:02)
[2016-10-31] MEDS ORDERED: NYSTOP60 GM TOP (20:02)
[2016-10-31] MEDS ORDERED: TRIAMCINOLONE A15 G1 TOP (20:03)
--- NOTE | 2016-10-31 20:16 | ED UPPER/LOWER EXTREMITY COMPL ---
History of Present Illness General Chief Complaint: Lower Extremity Problems Stated Complaint: LT LEG PAIN/SWOLLEN Source: patient, family, old records Exam Limitations: no limitations Vital Signs & Intake/Output Vital Signs & Intake/Output Vital Signs Date Time Temp Pulse Resp B/P B/P Pulse O2 O2 Flow FiO2 Mean Ox Delivery Rate 11/01 1951 98 Room Air 10/31 1918 97.4 10/31 1917 97.4 88 16 151/78 95 Room Air Allergies Coded Allergies: NO KNOWN ALLERGIES (UNKNOWN 10/22/16) Reconcile Medications Betamethasone Dipropionate 0.05 % CREAM..G. 1 CAROL ANN TOP BID SKIN (Reported) apply to affected area(s) Duloxetine HCl 30 MG CAPSULE.DR 90 MG PO DAILY NERVE PAIN (Reported) Furosemide 20 MG TABLET 1 TAB PO DAILY DIURETIC (Reported) Hydroxychloroquine Sulfate 200 MG TABLET 1 TAB PO DAILY LUPUS (Reported) Lisinopril 40 MG TABLET 1 TAB PO DAILY BP (Reported) Morphine Sulfate (Morphine Sulfate ER) 120 MG CPMP.24HR 1 CAP PO QAM PAIN ( Reported) Mupirocin 2 % OINT...G. 1 CAROL ANN TOP BID SKIN (Reported) apply to affected area(s) Nystatin (Nystop) 100,000 UNIT/GRAM POWDER 1 CAROL ANN TOP PRN SKIN FOLDS (Reported ) Olopatadine HCl (Pataday) 0.2 % DROPS 1 GTT OPH DAILY BOTH EYES - ALLERGIES ( Reported) Oxycodone HCl 15 MG TABLET 1-2 TAB PO Q4H PRN PAIN (Reported) Triamcinolone Acetonide 0.1 % CREAM..G. 1 CAROL ANN TOP PRN SKIN (Reported) Triage Note: TRIAGE: L KNEE PAIN WITH SWELLING, CT ORTHO IN [place] EVALUATED AND XRAYS DONE AND UNREMARKABLE. ALSO SEEN BY VASCULAR DR MEJIA AND U/S PERFORMED AND NEGATIVE FOR DVT. NORMALLY AMBULATORY BUT UNABLE TO WALK SINCE LAST MONDAY. UNABLE TO FLEX JOINT INDEPENDENTLY. BOTH LEGS SIGNIFICANTLY SWOLLEN. IN PAIN MANAGEMENT UNDER DR SHER IN [place]. MEDICATED WITH TYLENOL IN TRIAGE Triage Nurses Notes Reviewed? yes HPI: Since last Monday patient has been having increasing pain to her left knee. The pain is in the anterior portion of her knee and has been swollen. There is been no trauma. Patient is on pain management and she states that her pain medication is not helping the pain in her knee. Patient usually ambulates with the use of cane but is pretty much been bedbound since Monday. The pain is 10 out of 10 and is throbbing in nature. There is no radiation. Patient saw her orthopedist today who said that it is not an orthopedic problem. He did x-rays in his office. Patient then saw her vascular surgeon today who did an ultrasound and told her that there is no DVT. Patient went home and still could not walk so she comes to the emergency room for evaluation. Past History Travel History Traveled to [place] past 21 day No Medical History Any Pertinent Medical History? see below for history Neurological: NONE EENT: DEVIATED SEPTUM Cardiovascular: hypertension Respiratory: NONE Gastrointestinal: NONE Hepatic: NONE Renal: NONE Musculoskeletal: fibromyalgia, rheumatoid arthritis, LUPUS Psychiatric: NONE Endocrine: NONE Other Medical Hx: morbid obesity History of MRSA: No History of VRE: No History of CDIFF: No Tetanus Vaccine: 10/22/16 Surgical History Surgical History: right total knee replacement Psychosocial History Who do you live with Spouse Services at Home None What is your primary language Bhutanese Tobacco Use: Quit >30 days ago Daily Tobacco Use Amount/Type: =< 4 Cigarettes daily ETOH Use: denies use Illicit Drug Use: denies illicit drug use Family History Family History, If Any: FATHER (lung cancer). grandmother (HTN, DM). Hx Contributory? No Review of Systems Review of Systems Constitutional: Reports: no symptoms. EENTM: Reports: no symptoms. Respiratory: Reports: no symptoms. Cardiovascular: Reports: no symptoms. Gastrointestinal/Abdominal: Reports: no symptoms. Musculoskeletal: Reports: see HPI, joint pain, joint swelling. Neurological/Psychological: Reports: no symptoms. Immunological: Reports: no symptoms. Physical Exam Physical Exam General Appearance: well developed/nourished, alert, awake, anxious, moderate distress Head: atraumatic, normal appearance Eyes: Bilateral: PERRL, EOMI. Neck: normal inspection, supple Cardiovascular/Respiratory: normal breath sounds, normal peripheral pulses, regular rate/rhythm, no respiratory distress Knee Left: swelling, tenderness, soft tissue tenderness, limited range of motion Knee Ligaments Left: STABLE Neurologic/Tendon: normal sensation, normal motor functions, normal tendon functions Lymphatic: no anterior cervical malick Progress Differential Diagnosis: contusion, dislocation, fracture, sprain Plan of Care: Orders Procedure Date/time Status COMPREHENSIVE METABOLIC PANEL 11/01 2015 Complete Laboratory Tests 05/08/17 2030: Anion Gap 5, Estimated GFR > 60, BUN/Creatinine Ratio 38.3 H, Glucose 102 H, Calcium 9.9, Total Bilirubin 0.6, AST 29, ALT 32, Alkaline Phosphatase 81, Total Protein 7.9, Albumin 3.2 L, Globulin 4.7 H, Albumin/Globulin Ratio 0.7 L, WBC Cancelled, RBC Cancelled, Hgb Cancelled, Hct Cancelled, MCV Cancelled, MCH Cancelled, RDW Cancelled, Plt Count Cancelled, MPV Cancelled, PUBS MCHC Cancelled 10/31/16 2016: Urine Color Cancelled, Urine Clarity Cancelled, Urine pH Cancelled, Ur Specific [place] Cancelled, Urine Protein Cancelled, Urine Ketones Cancelled, Urine Nitrite Cancelled, Urine Bilirubin Cancelled, Urine Urobilinogen Cancelled, Ur Leukocyte Esterase Cancelled, Ur Microscopic Cancelled, Urine Hemoglobin Cancelled, Urine Glucose Cancelled Comments: Pain decreased to an 8 out of 10 after the Valium over the patient was able to ambulate in the emergency department and she would feel more comfortable going home. Departure Departure Disposition: HOME OR SELF CARE Condition: Stable Clinical Impression Primary Impression: Patellar tendinitis of left knee Referrals: GALICIA ERIS CRAVEN (PCP/Family) Additional Instructions: Use ice. Take Valium as needed for the pain. Return if symptoms worsen or for any concerns. Departure Forms: Customer Survey General Discharge Information Prescriptions: Current Visit Scripts Diazepam (Valium) 1 TAB PO Q8P PRN PAIN #30 TAB
[2016-10-31] MEDS ORDERED: VALIUM5 M2 PO (21:22)
[2016-10-31 21:26] VITALS: BP 148/76
== END 2016-10-31 21:31 ==
LOC: ERH 18:38
DX: M76.9 Unspecified enthesopathy, lower limb, excluding foot (principal)
CPT/HCPCS: J3360

== ENCOUNTER 2016-11-04 12:17 | Inpatient (IN) | payer OTHER ==
[~2016-11-04] VITALS: Ht 157.5 cm; Wt 136.1 kg
[~2016-11-04 12:17] MED LIST changes: +BETAMETHASONE D15 G4 TOP; +DULOXETINE HCL30 MG PO; +FUROSEMIDE20 M1 PO; +HYDROXYCHLOROQ200 M2 PO; +LISINOPRIL40 M1 PO; +MUPIROCIN22 GM TOP; +NYSTOP60 GM TOP; +OXYCODONE HCL15 M1 PO; +PATADAY2.5 ML OPH; +TRIAMCINOLONE A15 G1 TOP; +VALIUM5 M2 PO
--- NOTE | 2016-11-04 12:29 | NUR ---
PT TO ED C/O CONTINUED LEG PAIN. PT SEEN IN ED ON 10/31, DIAGNOSED WITH PATELLAR TENDONITIS, SENT HOME WITH RX FOR VALIUM. PT FELL MONDAY PER . HAS BEEN TAKING RX WITH NO RELIEF.
--- NOTE | 2016-11-04 13:07 | NUR ---
PT TO ROOM 22 IN W/C, ASSISTING PT TO STRETCHER. AWAITING PROVIDER EVAL.
--- NOTE | 2016-11-04 13:19 | NUR ---
DR KISER AT BEDSIDE FOR EVAL
--- NOTE | 2016-11-04 13:29 | ED UPPER/LOWER EXTREMITY COMPL ---
See Addendum History of Present Illness General Chief Complaint: Lower Extremity Problems Stated Complaint: PAIN IN BOTH LEGS XS 5 WEEKS Source: patient, family Exam Limitations: no limitations, unable to give history Vital Signs & Intake/Output Vital Signs & Intake/Output Vital Signs Date Time Temp Pulse Resp B/P B/P Pulse O2 O2 Flow FiO2 Mean Ox Delivery Rate 11/04 1747 97.3 81 18 152/67 95 Room Air 11/04 1552 96.8 79 18 142/67 96 Room Air 11/04 1359 96.6 79 20 139/65 92 Room Air 11/04 1227 98.0 83 20 144/83 96 Room Air Allergies Coded Allergies: NO KNOWN ALLERGIES (UNKNOWN 10/22/16) Reconcile Medications Betamethasone Dipropionate 0.05 % CREAM..G. 1 CAROL ANN TOP BID SKIN (Reported) apply to affected area(s) Diazepam (Valium) 5 MG TABLET 1 TAB PO Q8P PRN PAIN Duloxetine HCl 30 MG CAPSULE.DR 90 MG PO DAILY NERVE PAIN (Reported) Furosemide 20 MG TABLET 1 TAB PO DAILY DIURETIC (Reported) Hydroxychloroquine Sulfate 200 MG TABLET 1 TAB PO DAILY LUPUS (Reported) Lisinopril 40 MG TABLET 1 TAB PO DAILY BP (Reported) Morphine Sulfate (Morphine Sulfate ER) 120 MG CPMP.24HR 1 CAP PO QAM PAIN ( Reported) Mupirocin 2 % OINT...G. 1 CAROL ANN TOP BID SKIN (Reported) apply to affected area(s) Nystatin (Nystop) 100,000 UNIT/GRAM POWDER 1 CAROL ANN TOP PRN SKIN FOLDS (Reported ) Olopatadine HCl (Pataday) 0.2 % DROPS 1 GTT OPH DAILY BOTH EYES - ALLERGIES ( Reported) Oxycodone HCl 15 MG TABLET 1-2 TAB PO Q4H PRN PAIN (Reported) Triamcinolone Acetonide 0.1 % CREAM..G. 1 CAROL ANN TOP PRN SKIN (Reported) Triage Note: PT TO ED C/O CONTINUED LEG PAIN. PT SEEN IN ED ON 10/31, DIAGNOSED WITH PATELLAR TENDONITIS, SENT HOME WITH RX FOR VALIUM. PT FELL MONDAY PER . HAS BEEN TAKING RX WITH NO RELIEF. Triage Nurses Notes Reviewed? yes HPI: 56 yo F PMH HTN, Fibromyalgia presenting with left lower showed a pain. Impressive left lower externae pain for the last 1-2 weeks, multiple evaluations in this emergency department, by PMD, and by orthopedist, left foot show a DVT ultrasound negative week ago, left knee x-ray unremarkable, thought to possibly have patellar tendinitis by orthopedist. Patient has had progressive decline in her functional status at home, greatly reduced mobility, patient normally able to ambulate around unassisted, for the past 24 hours patient has been able to get out of bed or ambulate significant distance at home, has no in-home services , had one fall onto forearms, denies head or neck trauma, LOC, focal neurologic symptoms. Denies fevers, chills, chest pain, shortness of breath, abdominal symptoms, urinary symptoms. (VIVIENNE KISER MD) Past History Travel History Traveled to [place] past 21 day No Medical History Any Pertinent Medical History? none Neurological: NONE EENT: DEVIATED SEPTUM Cardiovascular: hypertension Respiratory: NONE Gastrointestinal: NONE Hepatic: NONE Renal: NONE Musculoskeletal: fibromyalgia, rheumatoid arthritis, LUPUS Psychiatric: NONE Endocrine: NONE Other Medical Hx: morbid obesity History of MRSA: No History of VRE: No History of CDIFF: No Tetanus Vaccine: 10/22/16 Surgical History Surgical History: right total knee replacement Psychosocial History Who do you live with Spouse Services at Home None What is your primary language Cape Verdean Tobacco Use: Quit >30 days ago ETOH Use: denies use Illicit Drug Use: denies illicit drug use Family History Family History, If Any: FATHER (lung cancer). grandmother (HTN, DM). Hx Contributory? No (VIVIENNE KISER MD) Review of Systems Review of Systems Constitutional: Reports: no symptoms. EENTM: Reports: no symptoms. Respiratory: Reports: no symptoms. Cardiovascular: Reports: no symptoms. Gastrointestinal/Abdominal: Reports: no symptoms. Genitourinary: Reports: no symptoms. Musculoskeletal: Reports: no symptoms. Skin: Reports: no symptoms. Neurological/Psychological: Reports: no symptoms. Hematologic/Endocrine: Reports: no symptoms. Immunological: Reports: no symptoms. All Other Systems: Reviewed and Negative (VIVIENNE KISER MD) Physical Exam Physical Exam General Appearance: well developed/nourished, no apparent distress, alert, awake Head: atraumatic, normal appearance Eyes: Bilateral: normal appearance. Ears, Nose, Throat: normal pharynx, normal ENT inspection Neck: normal inspection, no midline tenderness Cardiovascular/Respiratory: normal breath sounds, normal peripheral pulses Peripheral Pulses: 2+ radial (R), 2+ radial (L), 2+ dorsalis pedis (R), 2+ dorsalis pedis (L) Back: normal inspection Comments: Extremities: Marketed bilateral lower extremity pitting edema with chronic venous stasis changes, mild erythema of right medial lower leg without tenderness palpation (baseline per patient), mild swelling of left medial knee tenderness palpation at swelling site and in left popliteal fossa, no overlying erythema or skin changes, 2+ distal pulses, normal sensation (MARGI CRAVEN,VIVIENNE) Progress Differential Diagnosis: cellulitis, CHF, dislocation, DVT, fracture Plan of Care: Orders Procedure Date/time Status Regular Diet 11/05 B Active Misc Message 11/04 1900 Active ED Holding Orders 11/04 1900 Active Code Status 11/04 1900 Active Patient Data 11/04 185 Active Admit to inpatient 11/04 1720 Active Intake & Output 11/04 1708 Active CBC WITHOUT DIFFERENTIAL 11/04 133 Complete BASIC METABOLIC PANEL 11/04 1332 Complete Laboratory Tests 11/04/16 1351: Anion Gap 7, Estimated GFR > 60, BUN/Creatinine Ratio 25.7 H, Glucose 99, Calcium 10.0, CBC w Diff NO MAN DIFF REQ, RBC 3.78 L, MCV 83.3, MCH 27.2, RDW 15.2 H, MPV 7.2 L, Gran % 48.6, Lymphocytes % 35.4, Monocytes % 11.7 H, Eosinophils % 3.5, Basophils % 0.8, Absolute Granulocytes 2.9, Absolute Lymphocytes 2.1, Absolute Monocytes 0.7 H, Absolute Eosinophils 0.2, Absolute Basophils 0, PUBS MCHC 32.6 L Physician MDM: 56 yo F PMH HTN, Fibromyalgia presenting with left lower showed a pain. VSS, LLE exam as above. DDx: Muscoloskeletal pain, DVT, Mckay's cyst, low concern for compartment syndrome or arterial insufficiency. Morphine given with some improvement in pain. Labs unremarkable. Left lower extremity DVT ultrasound without evidence of DVT, showed Mckay's cyst and left popliteal fossa , probable cause of patient's symptoms. Patient unable to ambulate despite pain control, normally ambulatory without assistance at home, patient and concerned about patient going home and suffering a fall with traumatic injury. Given this is the patient's third emergency department visit in the last 2 weeks for difficulty ambulating, appears to have progressed to the point where function status is significant effect at home, will admit for further evaluation , rehabilitation, PT/OT consult. (MARGI CRAVEN,VIVIENNE) Departure Departure Disposition: STILL A PATIENT Condition: Stable Clinical Impression Primary Impression: Mckay's cyst of knee Secondary Impressions: Inability to ambulate due to knee Referrals: GRAYSON CRAVEN,ERIS Vences (PCP/Family) Departure Forms: Customer Survey General Discharge Information (MARGI CRAVEN,VIVIENNE) PA/ROLL MECHANIC Co-Sign Statement Statement: ED Attending supervision documentation- [] I saw and evaluated the patient. I have also reviewed all the pertinent lab results and diagnostic results. I agree with the findings and the plan of care as documented in the PA's/ROLL MECHANIC's documentation. [X] I have reviewed the ED Record and agree with the PA's/ROLL MECHANIC's documentation. [] Additions or exceptions (if any) to the PAs/ROLL MECHANIC's note and plan are summarized below: [] (ELLIS CRAVEN,POONAM [place])
--- NOTE | 2016-11-04 13:57 | NUR ---
IV EST, MEDICATED FOR PAIN. BLOOD SENT (SST/LAV/BLUE/ALANIZ). CHANGED INTO GOWN FOR US--ABLE TO CHANGE INDEPENDENTLY. AWAITING US AT THIS TIME. PT C/O PAIN 8-04/04 BLE, PT ON MULTIPLE NARCOTICS AT HOME PRESCRIBED BY [facility] IN [place] "FOR THE LUPUS AND THE FIBROMYALGIA." CHRONIC EDEMA BLE WITH ERYTHEMA.
[2016-11-04 14:03] LABS: ABSOLUTE BASOPHIL COUNT 0 /CUMM (0.0-0.2); ABSOLUTE EOSINOPHIL COUNT 0.2 /CUMM (0.0-0.7); ABSOLUTE GRANULOCYTE CT 2.9 /CUMM (1.4-6.5); ABSOLUTE LYMPH COUNT 2.1 /CUMM (1.2-3.4); ABSOLUTE MONOCYTE COUNT 0.7 /CUMM (0.10-0.60); BASOPHIL % 0.8 % (0.0-2.0); EOSINOPHIL % 3.5 % (0-5); GRANULOCYTE % 48.6 % (42.2-75.2); HEMATOCRIT 31.5 % (37-47); MEAN CORPUSCULAR HGB 27.2 PG (27.0-31.0); MEAN CORPUSCULAR HGB CONC 32.6 G/DL (33.0-37.0); MEAN CORPUSCULAR VOLUME 83.3 FL (81.0-99.0); MEAN PLATELET VOLUME 7.2 FL (7.4-10.4); PLATELET COUNT 358 /CUMM (130-400); RBC DISTRIBUTION WIDTH 15.2 % (11.5-14.5); RED BLOOD CELL CT 3.78 /CUMM (4.20-5.40)
--- NOTE | 2016-11-04 15:05 | NUR ---
PT TO BATHROOM AND BACK VIA W/C WITH MST. PER TECH PT ABLE TO BEAR WEIGHT AND TRANSFER INDEPENDENTLY FROM CHAIR TO TOILET AND BACK THOUGH MOVES SLOWLY. CURRENTLY AT US.
--- NOTE | 2016-11-04 16:06 | ULTRASOUND REPORT ---
EXAMINATION: US TRIPLEX LOWER EXTREMITY, LEFT CLINICAL INFORMATION: Left lower extremity pain and swelling. COMPARISON: Ultrasound of the bilateral lower extremity veins 06/28/2016. TECHNIQUE: Color-flow triplex imaging with spectral analysis and compression Doppler were performed on the lower extremity. FINDINGS: Respiratory variation, normal compression and augmented flow are noted throughout the left lower extremity. The visualized common femoral vein, femoral vein, profunda femoral vein, popliteal vein and midcalf peroneal and posterior tibial venous segments show no evidence of deep venous thrombosis. There is a Mckay's cyst within the left popliteal fossa measuring 5.9 x 2.3 x 1.3 cm. IMPRESSION: No evidence of deep venous thrombosis involving the left lower extremity. A 5.9 x 2.3 x 1.3 cm Mckay's cyst is identified within the left popliteal fossa.
--- NOTE | 2016-11-04 16:19 | NUR ---
AT DESK STATING PT IS HAVING PAIN. TO SPEAK WITH PT/FAMILY RE:DISPO.
--- NOTE | 2016-11-04 17:22 | NUR ---
PT AWARE THAT PER MD LIKELY POC IS EDOBS FOR PT EVAL TOMORROW MORNING. CASE MANAGEMENT TO BECOME INVOLVED. MEAL TRAY ORDERED. PT TRANSFERRING SELF TO/FROM COMMODE WITHOUT DIFFICULTY IN ROOM WITH ASSIST FROM NEEDED.
--- NOTE | 2016-11-04 18:06 | NUR ---
PT EATING DINNER
--- NOTE | 2016-11-04 18:46 | NUR ---
PT TRANSFERRED SELF TO COMMODE FROM STRETCHER AND BACK, RANG CALL LIGHT AFTER RETURNING TO STRETCHER INDEPENDENTLY AND RAISING STRETCHER RAILS. ATE 100% OF DINNER TRAY. NO COMPLAINTS, AWAITING ADMISSION.
--- NOTE | 2016-11-04 19:10 | NUR ---
PT TO ROOM 209 BED 2
--- NOTE | 2016-11-04 19:28 | NUR ---
VITALS TAKEN AND PT INFORMED THAT SHE IS ASSIGNED A BED. PT STATING SHE DOES NOT WANT TO STAY IN THE HOSPITAL. PT STATING SHE NEVER MEANT TO TELL ANYONE THAT SHE COULDN'T WALK, "I CAN WALK SLOWLY. I JUST WANTED TO KNOW WHY I HAVE ALL THIS PAIN." DISCUSSED THAT PT HAS RETURNED TO THE ED REPEATEDLY. PT STATING "I JUST WANTED A DIAGNOSIS, THAT'S ALL. I DON'T WANT TO STAY IN THE HOSPITAL AND I DON'T WANT TO GO TO A [facility]." ED MD AT BEDSIDE CURRENTLY TO CONFIRM PLAN FOR ADMISSION VS D/C HOME/AMA.
--- NOTE | 2016-11-04 19:47 | NUR ---
PER MD PT AGREES TO STAY FOR NOW. 2NB CALLED FOR REPORT
--- NOTE | 2016-11-04 19:58 | History & Physical ---
ALESSANDRA CRAVEN,MIRI 11/04/161952: General Information and HPI Statement: I have seen and personally examined LEO SALAZAR and documented this H&P. The patient is a 56 year old F who presented with a patient stated chief complaint of []. Source of Information: patient, family Exam Limitations: unable to give history History of Present Illness: Patient is a 56-year-old morbidly obese female with past medical history of hypertension, fibromyalgia, limited Lupus /cutaneous involvement, history of anemia , sleep apnea (noncompliant for CPAP ), history of right total knee replacement (2013), planning for left knee replacement on 18 November, bilateral lower extremity lymphedema presented with chief complaints of pain in the left knee since last 2 weeks. Patient claims that she started having pain since last 2 weeks which was gradually progressive. She showed to her orthopedic doctor who advised x-ray of left knee, which was unremarkable except showing small cyst behind the knee. She also showed to vascular surgeon who advised, Lower extremity Doppler which was negative for DVT. Because of this pain, she came to the [facility] ED and was given pain medication a week ago. Despite that the pain medication, her pain is getting worse and affecting her daily activities. A day before admission, she had an episode of fall, in which she fell on left elbow without any trauma and fracture. Today she presented with increased severity of left knee pain Denies-fever, chills, chest pain, shortness of breath, palpitation, diarrhea, constipation, headache, dizziness, anorexia. Personal history -progressively declining in her functional status , walks with a walker/cane, smoked, half pack per day since teenage and quit in 2000, denies alcohol use, history of smoking weed at the age of 15. Allergies-NKDA She is following Dr. Gibson at [place] for lupus. Allergies/Medications Allergies: Coded Allergies: NO KNOWN ALLERGIES (UNKNOWN 10/22/16) Home Med list Betamethasone Dipropionate 0.05 % CREAM..G. 1 CAROL ANN TOP BID SKIN (Reported) apply to affected area(s) Diazepam (Valium) 5 MG TABLET 1 TAB PO Q8P PRN PAIN Duloxetine HCl 30 MG CAPSULE.DR 90 MG PO DAILY NERVE PAIN (Reported) Furosemide 20 MG TABLET 1 TAB PO DAILY DIURETIC (Reported) Hydroxychloroquine Sulfate 200 MG TABLET 1 TAB PO DAILY LUPUS (Reported) Lisinopril 40 MG TABLET 1 TAB PO DAILY BP (Reported) Morphine Sulfate (Morphine Sulfate ER) 120 MG CPMP.24HR 1 CAP PO QAM PAIN ( Reported) Mupirocin 2 % OINT...G. 1 CAROL ANN TOP BID SKIN (Reported) apply to affected area(s) Nystatin (Nystop) 100,000 UNIT/GRAM POWDER 1 CAROL ANN TOP PRN SKIN FOLDS (Reported ) Olopatadine HCl (Pataday) 0.2 % DROPS 1 GTT OPH DAILY BOTH EYES - ALLERGIES ( Reported) Oxycodone HCl 15 MG TABLET 1-2 TAB PO Q4H PRN PAIN (Reported) Triamcinolone Acetonide 0.1 % CREAM..G. 1 CAROL ANN TOP PRN SKIN (Reported) Past History Travel History Traveled to [place] past 21 day No Medical History Neurological: NONE EENT: DEVIATED SEPTUM Cardiovascular: hypertension Respiratory: NONE Gastrointestinal: NONE Hepatic: NONE Renal: NONE Musculoskeletal: fibromyalgia, rheumatoid arthritis, LUPUS Psychiatric: NONE Endocrine: NONE Other Medical Hx: morbid obesity History of MRSA: No History of VRE: No History of CDIFF: No Tetanus Vaccine: 10/22/16 Surgical History Surgical History: right total knee replacement Past Family/Social History Family History Relations & Conditions if any FATHER (lung cancer). grandmother (HTN, DM). Psychosocial History Services at Home: None ETOH Use: denies use Illicit Drug Use: denies illicit drug use Review of Systems Review of Systems Constitutional: Denies: no symptoms. Cardiovascular: Denies: no symptoms. Respiratory: Denies: no symptoms. Genitourinary: Denies: no symptoms. Skin: Reports: change in skin color, erythema, lesions, rash. Neurological/Psychological: Denies: no symptoms. Exam & Diagnostic Data Last 24 Hrs of Vital Signs/I&O Vital Signs Date Time Temp Pulse Resp B/P B/P Pulse O2 O2 Flow FiO2 Mean Ox Delivery Rate 11/040 98.1 77 20 152/83 98 Room Air 11/04 1928 98.6 84 20 147/73 94 Room Air 11/04 1747 97.3 81 18 152/67 95 Room Air 11/04 1552 96.8 79 18 142/67 96 Room Air 11/04 1359 96.6 79 20 139/65 92 Room Air 11/04 1227 98.0 83 20 144/83 96 Room Air Intake & Output 11/04 1600 11/04 0800 11/04 0000 Intake Total Output Total Balance Patient 136.078 kg Weight Weight Reported by Patient Measurement Method Physical Exam General Appearance Alert, Oriented X3, Cooperative, Mild Distress Skin bilateral redness, discoloration of both lower leg skin Sepsis Skin Exam (color): Normal for Ethnicity HEENT Atraumatic, PERRLA Cardiovascular Normal S1, Normal S2 Lungs Clear to Auscultation, Normal Air Movement Abdomen Soft, No Tenderness Neurological Normal Speech, Strength at 5/5 X4 Ext, Normal Tone Extremities bilateral lower leg non pitting edema, tenderness in anterior part of left lower leg Vascular Normal Pulses, Pulses Symmetrical Last 24 Hrs of Labs/Ibrahima: Laboratory Tests 11/04/16 1351: Anion Gap 7, Estimated GFR > 60, BUN/Creatinine Ratio 25.7 H, Glucose 99, Calcium 10.0, CBC w Diff NO MAN DIFF REQ, RBC 3.78 L, MCV 83.3, MCH 27.2, RDW 15.2 H, MPV 7.2 L, Gran % 48.6, Lymphocytes % 35.4, Monocytes % 11.7 H, Eosinophils % 3.5, Basophils % 0.8, Absolute Granulocytes 2.9, Absolute Lymphocytes 2.1, Absolute Monocytes 0.7 H, Absolute Eosinophils 0.2, Absolute Basophils 0, PUBS MCHC 32.6 L Diagnostic Data Other Results US TRIPLEX LOWER EXTREMITY, LEFT- No evidence of deep venous thrombosis involving the left lower extremity. A 5.9 x 2.3 x 1.3 cm Mckay's cyst is identified within the left popliteal fossa. Assessment/Plan Assessment: Patient is a 56-year-old morbidly obese female with past medical history of hypertension, fibromyalgia, limited Lupus/cutaneous involvement, history of anemia , sleep apnea (noncompliant for CPAP ), history of right total knee replacement (2013), planning for left knee replacement on 18 November, bilateral lower extremity lymphedema presented with chief complaints of pain in the left knee since last 2 weeks. Vital signs at the time of admission-temperature 98.0, pulse 83, respiratory rate 20, blood pressure 144/83, SPO2 96% on room air Pertinent labs - hemoglobin 10.3, hematocrit 31.5, BUN 18, Venous Doppler study- No evidence of deep venous thrombosis involving the left lower extremity. A 5.9 x 2.3 x 1.3 cm Mckay's cyst is identified within the left popliteal fossa. Plan - Pain in the left knee under evaluation, possibly secondary to patellar tendinitis along with silent Mckay's cyst * We will admit the patient into general medical floor * We will give pain medication according to the pain protocol * Mild -Tylenol * Moderate -Percocet * Severe pain -morphine * Will continue pain medication, patient was using at home including morphine and oxycodone * PT/OT * We will plan to place the patient into short-term rehabilitation Hypertension - * We will continue lisinopril Fibromyalgia * Pain medication according to the pain protocol * We will continue Cymbalta 30, 60 milligrams every day (total 90 milligrams) Cutaneous lupus * We will continue Planquenil 200mg daily * We will advise her to follow-up with her bulbs farmworker as an outpatient Bilateral lower extremity edema secondary to lymphedema * We advised to continue tablet furosemide 20 milligrams daily * PT/OT Sleep apnea -she says that she is noncompliant with CPAP Diet-heart healthy diet CODE STATUS-full code DVT prophylaxis- heparin As Ranked By This Provider Problem List: 1. Morbid obesity 2. Hypertension 3. Fibromyalgia 4. Lupus 5. Sleep apnea 6. Anemia 7. Left knee pain Core Measures/Miscellaneous Acute Coronary Syndrome ACS Diagnosis: No Cerebrovascular Accident CVA/TIA Diagnosis: No Congestive Heart Failure CHF Diagnosis: No Venous Thromboembolism VTE Risk Factors: Age > 40, Immobility, paresis, Obesity, Varicose veins No Mech VTE prophylaxis d/t: No contraindications No VTE Pharm Prophylaxis d/t: No contraindications VTE Diagnosis: No VTE Type: NONE VTE Confirmed by (Test): NONE Severe Sepsis Severe Sepsis Present: No Septic Shock Septic Shock Present: No Miscellaneous Documentation Attending Case Discussed With: VIBHA MERCADO MD Primary Care Physician: ERIS GALICIA MD Patient sees these Specialists bulbs farmworker orthopedics Level of Patient Care: General Medicine MONSERRAT BAUMAN 11/04/162115: Resident Review Statement Resident Statement: examined this patient Other Findings: Patient is a 56-year-old morbidly obese woman with past medical history significant for cutaneous lupus, fibromyalgia, hypertension, bilateral lower extremity swelling, left knee replacement present in the ED for evaluation of left lower extremity pain. Patient mentioned that she has been having pain in the left lower extremity for the last 2 weeks now. She was seen by her orthopedic doctor on Monday, left knee x-ray done at the orthopedic office was unremarkable except for swelling possible cyst behind knee., She was seen by her vascular surgeon also left lower extremity Doppler ultrasound did not reveal any DVT. Patient was also seen in the ED on Monday night, and was discharged home on Valium for possible patellar tendinitis. Pain continued to get worse, also reports difficulty in ambulation. For the last 24 hours he could not able to get out of bed. Today she came to the ED again for further evaluation. Patient denied any recent fever or chills. Denies any chest discomfort and trouble breathing. Denies any worsening lower externally swelling. Vitals on admission temperature 98.0, pulse 83, respiratory 20, blood pressure 144/83 on room air. General Appearance Alert, Oriented X3 Skin No Rashes, No Breakdown Skin Temp/Moisture Exam: Warm/Dry Sepsis Skin Exam (color): Pale Neck Supple, No JVD, No thryomegaly Lymphatic Axillary nl, Cervical nl Cardiovascular Regular Rate, Normal S1, Normal S2 Lungs Clear to Auscultation Abdomen Normal Bowel Sounds, Soft, No Tenderness, No Hepatospenomegaly Neurological Normal Speech, Strength at 5/5 X4 Ext, Normal Tone Extremities : Bilateral lower extremity nonpitting edema. Vascular Normal Pulses Pertinent labs on admission: Normal WBC count. H&H low 10.3/31.5 with MCV of 83.3, normal chemistries Left lower extremity x-ray:No evidence of deep venous thrombosis involving the left lower extremity. A 5.9 x 2.3 x 1.3 cm Mckay's cyst is identified within the left popliteal fossa. Assessment and plan: 1. Worsening /progressive decline in the functional status (gait instability) due to chronic pain syndrom with superimposed findings of Mckay's cyst is identified within the left popliteal- possible short-term e rehabilitation fossa. * We'll admit the patient [facility] floor * Obtain physical therapy consult in the morning. * pain management Control with home doses of oxycodone and extended disease morphine sulfate. * Breakthrough pain control with IV morphine. 2. History of cutaneous lupus * Continue home dose of Plaquenil. 3 history of fibromyalgia/chronic pain syndrome * Continue home medications including oxycodone, morphine sulfate, Cymbalta 4 history of lower extremity swelling * Continue home dose of Lasix 5 history of hypertension * Continue lisinopril Moderate to severe pain pathway with oxycodone and morphine DVT prophylaxis Lovenox Patient is full code. JESS CRAVEN, [facility] 11/04/162138: Attending MD Review Statement Attending Statement Attending MD Statement: examined this patient, discuss w/resident/PA/SECURITY DOOR INSTALLER, agreed w/resident/PA/SECURITY DOOR INSTALLER, discussed with family Attending Assessment/Plan: 56 yo morbidly obese F with h/o fibromyalgia, chronic pain on opiates, cutaneous lupus on plaquenil, OA, HTN, chronic LE edema, LUIS not using CPAP, is here for intractable left knee pain for 1-2 weeks and with progressive decline in functional status, gait instability with an episode where she skid down without dizziness/LOC. She was unable to get out of bed or ambulate today. She was seen by CT Ortho in [place] xrays negative, also seen by Vascular Dr. Levine [facility] neg for DVT. Seen in ER on October 31, diagnosed with patellar tendonitis and given valium which did not help much. Of note, patient has undergone physical therapy in the past, however due to significant pain from fibromyalgia she was unable to make it to her appointments. VSS. Neuro nonfocal, b/l LE chronic nonpitting edema with venous stasis changes. ROM limited to left knee. Labs unremarkable. LLE doppler: no DVT, mckay's cyst+ left popliteal fossa. 1. Intractable left knee pain, gait instability. GM admit, fall precautions, physical therapy, pain management with oxycodone and morphine ER, with IV morphine for breakthrough pain. Possible STR placement. Case management consult. 2. Continue home meds plaquenil, cymbalta, lisinopril, lasix. DVT ppx Lovenox. Full code.
--- NOTE | 2016-11-04 20:07 | NUR ---
REPORT GIVEN TO DAVID ON 2NB. HOUSE STAFF AT BEDSIDE.
--- NOTE | 2016-11-04 20:42 | NUR ---
HOUSE STAFF STEPHENIE COMPLETE. TRANSPORT CALLED.
--- NOTE | 2016-11-04 21:40 | Admission Certification ---
Admission Certification Certification Statement - As attending physician, I certify that at the time of - admission, based on clinical presentation, severity of - symptoms, need for further diagnostic testing and - therapeutic interventions, and risk of adverse outcomes - without in-hospital treatment, in my clinical assessment, - this patient requires an acute hospital stay for a minimum - of two nights or longer. I have also considered psychsocial - factors such as support system, advanced age, financial - issues, cognitive issues, and failed out-patient treatments, - past re-admission history, safety of patient, and lack of - compliance as applicable. Specific rationale supporting this admission is: Intractable left knee pain, decline in functional status, gait instability.
[2016-11-04 22:20] VITALS: BP 152/83
--- NOTE | 2016-11-04 23:00 | NUR ---
RECEIVED PATIENT FROM ED. ALERT AND ORIENTED, PAIN 01/02. GOOD EFFECT WITH MORPHINE, AMBULATED WITH RW TO BATHROM. ALERT AND ORIENTED, VSS. SKIN INTACT, 4 PLUS LOWER EXTREMITY EDEMA. NO OPEN AREAS NOTED, PT HAS HISTORY OF FALLS BUT IS REFUSING BED ALARM AND IS USING CALL QIU APPROPRIATELY. ORIENTED TO 2NB. CALL QIU WITHIN REACH.
[2016-11-05 07:10] VITALS: BP 140/88
--- NOTE | 2016-11-05 08:11 | PN- Housestaff ---
PAUL CRAVEN,OLIMPIA 11/05/16 0811: Subjective Follow-up For: left knee pain Subjective: pt reports that her left knee pain has improved from 8-10, to now 6. she is asking if she can do PT at home rather than going to rehab, i told her we will plan her discharge as per PT recc. pt also reports that swelling in her left knee has improved. no complains otherwise. Review of Systems Constitutional: Reports: see HPI. Objective Last 24 Hrs of Vital Signs/I&O Vital Signs Date Time Temp Pulse Resp B/P B/P Pulse O2 O2 Flow FiO2 Mean Ox Delivery Rate 11/05 0710 98.3 97 20 140/88 94 11/04 2220 Room Air 11/04 2220 98.1 77 20 152/83 98 Room Air 11/04 1928 98.6 84 20 147/73 94 Room Air 11/04 1747 97.3 81 18 152/67 95 Room Air 11/04 1552 96.8 79 18 142/67 96 Room Air 11/04 1359 96.6 79 20 139/65 92 Room Air 11/04 1227 98.0 83 20 144/83 96 Room Air Intake & Output 11/05 1600 11/05 0800 11/05 0000 Intake Total 300 200 Output Total 300 Balance 300 -100 Intake, Oral 300 200 Number 1 Bowel Movements Output, Urine 300 Patient 136.078 kg Weight Weight Reported by Patient Measurement Method Physical Exam General Appearance: Alert, Oriented X3, Cooperative, Mild Distress Cardiovascular: Regular Rate, Normal S1, Normal S2 Lungs: Clear to Auscultation, Normal Air Movement Abdomen: Normal Bowel Sounds, Soft, No Tenderness Extremities: chronic lymphedema Current Medications: Current Medications Sig/Deuce Start time Last Medication Dose Route Stop Time Status Admin Acetaminophen 650 MG Q6 PRN 11/04 2114 AC PO Duloxetine HCl 90 MG DAILY 11/04 2199 AC 11/04 PO 2200 Enoxaparin Sodium 40 MG DAILY 11/05 1000 AC SC Fluocinonide 1 CAROL ANN BID 11/04 2199 AC 11/04 TOP 2300 Furosemide 20 MG DAILY 11/05 1000 AC PO Hydroxychloroquine 200 MG DAILY 11/05 1000 AC Sulfate PO Lisinopril 40 MG DAILY 11/05 1000 AC PO Morphine Sulfate 60 MG BID 11/05 1000 AC PO Morphine Sulfate 4 MG Q4P PRN 11/04 2114 AC 11/05 IV 0205 Morphine Sulfate 0 .STK-MED ONE 11/04 1347 DC .ROUTE Morphine Sulfate 6 MG ONCE ONE 11/04 1345 DC 11/04 IV 11/04 1346 1353 Oxycodone HCl 15 MG Q6 PRN 11/04 2114 11/05 PO 0355 Last 24 Hrs of Lab/Ibrahima Results Last 24 Hrs of Labs/Mics: Laboratory Tests 11/05/16 0642: Sodium Pending, Potassium Pending, Chloride Pending, Carbon Dioxide Pending, Anion Gap Pending, BUN Pending, Creatinine Pending, BUN/Creatinine Ratio Pending , CBC w Diff Pending, WBC Pending, RBC Pending, Hgb Pending, Hct Pending, MCV Pending, MCH Pending, RDW Pending, Plt Count Pending, MPV Pending, PUBS MCHC Pending 11/04/16 1351: Anion Gap 7, Estimated GFR > 60, BUN/Creatinine Ratio 25.7 H, Glucose 99, Calcium 10.0, CBC w Diff NO MAN DIFF REQ, RBC 3.78 L, MCV 83.3, MCH 27.2, RDW 15.2 H, MPV 7.2 L, Gran % 48.6, Lymphocytes % 35.4, Monocytes % 11.7 H, Eosinophils % 3.5, Basophils % 0.8, Absolute Granulocytes 2.9, Absolute Lymphocytes 2.1, Absolute Monocytes 0.7 H, Absolute Eosinophils 0.2, Absolute Basophils 0, PUBS MCHC 32.6 L Assessment/Plan Assessment: Patient is a 56-year-old morbidly obese female with past medical history of hypertension, fibromyalgia, limited Lupus/cutaneous involvement, history of anemia , sleep apnea (noncompliant for CPAP), history of right total knee replacement (2013), planning for left knee replacement on 18 November, bilateral lower extremity lymphedema presented with chief complaints of pain in the left knee since last 2 weeks. Vital signs at the time of admission-temperature 98.0, pulse 83, respiratory rate 20, blood pressure 144/83, SPO2 96% on room air Pertinent labs - hemoglobin 10.3, hematocrit 31.5, BUN 18, Venous Doppler study- No evidence of deep venous thrombosis involving the left lower extremity. A 5.9 x 2.3 x 1.3 cm Mckay's cyst is identified within the left popliteal fossa. Plan - Pain in the left knee under evaluation, possibly secondary to patellar tendinitis along with silent Mckay's cyst * We will admit the patient into general medical floor * We will give pain medication according to the pain protocol * Mild -Tylenol * Moderate -Percocet * Severe pain -morphine * Will continue pain medication, patient was using at home including morphine and oxycodone * PT consult appreciated * We will plan to place the patient into short-term rehabilitation if PT recc so , pt prefers home PT * Ibuprofen 400 q6p for moderate pain Hypertension - * We will continue lisinopril Fibromyalgia * Pain medication according to the pain protocol * We will continue Cymbalta 30, 60 milligrams every day (total 90 milligrams) Cutaneous lupus * We will continue Planquenil 200mg daily * We will advise her to follow-up with her commodity loan clerk as an outpatient Bilateral lower extremity edema secondary to lymphedema * Continue tablet furosemide 20 milligrams daily Sleep apnea -she says that she is noncompliant with CPAP Diet-heart healthy diet CODE STATUS-full code DVT prophylaxis- heparin Problem List: 1. Left knee pain Pain Ratin Pain Location: left knee Pain Goal: Pain 7 or less Pain Plan: mod pp Tomorrow's Labs & Rationales: none DVT/Prophylaxis: mechanical, pharmacological JEANNETTE CRAVEN,[facility] 11/05/16 1538: Attending MD Review Statement Attending Statement Attending MD Statement: examined this patient, discuss w/resident/PA/DETECTIVE [employer] SECTION, agreed w/resident/PA/DETECTIVE [employer]OMOBILE SECTION, reviewed EMR data (avail), discussed with nursing, reviewed images, amended to note Attending Assessment/Plan: Patient seen and examined, feels slightly better. She was admitted with intractable left knee pain as well as a fall. Vital Signs Date Time Temp Pulse Resp B/P B/P Pulse O2 O2 Flow FiO2 Mean Ox Delivery Rate 11/05 1505 98.1 96 20 138/80 94 Room Air 11/05 1027 98.3 97 20 140/88 11/05 0710 98.3 97 20 140/88 94 11/04 2220 Room Air 11/04 2220 98.1 77 20 152/83 98 Room Air 11/04 1928 98.6 84 20 147/73 94 Room Air 11/04 1747 97.3 81 18 152/67 95 Room Air 11/04 1552 96.8 79 18 142/67 96 Room Air on exam; aox3, nad. cv; s1,s2, rrr resp; clear abd; soft, nt, bs+ ext; + edema. Laboratory Tests 11/05 0642 Chemistry Sodium (137 - 145 mmol/L) 139 Potassium (3.5 - 5.1 mmol/L) 4.3 Chloride (98 - 107 mmol/L) 104 Carbon Dioxide (22 - 30 mmol/L) 28 Anion Gap (5 - 16) 6 BUN (7 - 17 mg/dL) 13 Creatinine (0.5 - 1.0 mg/dL) 0.6 Estimated GFR (>60 ml/min) > 60 BUN/Creatinine Ratio (7 - 25 %) 21.7 Hematology CBC w Diff NO MAN DIFF REQ WBC (4.8 - 10.8 /CUMM) 7.1 RBC (4.20 - 5.40 /CUMM) 3.93 L Hgb (12.0 - 16.0 G/DL) 10.8 L Hct (37 - 47 %) 32.8 L MCV (81.0 - 99.0 FL) 83.5 MCH (27.0 - 31.0 PG) 27.5 RDW (11.5 - 14.5 %) 15.0 H Plt Count (130 - 400 /CUMM) 374 MPV (7.4 - 10.4 FL) 7.6 Gran % (42.2 - 75.2 %) 55.6 Lymphocytes % (20.5 - 51.1 %) 32.9 Monocytes % (1.7 - 9.3 %) 8.8 Eosinophils % (0 - 5 %) 2.0 Basophils % (0.0 - 2.0 %) 0.7 Absolute Granulocytes (1.4 - 6.5 /CUMM) 4.0 Absolute Lymphocytes (1.2 - 3.4 /CUMM) 2.3 Absolute Monocytes (0.10 - 0.60 /CUMM) 0.6 Absolute Eosinophils (0.0 - 0.7 /CUMM) 0.1 Absolute Basophils (0.0 - 0.2 /CUMM) 0 PUBS MCHC (33.0 - 37.0 G/DL) 33.0 A/P;56 y/o F with pmh sig for fibromyalgia, chronic pain on opiates, cutaneous lupus on plaquenil, OA, HTN, chronic LE edema, LUIS not using CPAP, is here for intractable left knee pain for 1-2 weeks and with progressive decline in functional status, gait instability with an episode where she skid down without dizziness/LOC. She was not able to ambulate. At this point her pain is managed with IV and by mouth morphine. Continue the rest of her home medications. Patient has been evaluated by physical therapy and they're recommending home physical therapy. DVT px: Lovenox. Possible discharge tomorrow if pain is adequately controlled.
[2016-11-05 08:56] LABS: ABSOLUTE BASOPHIL COUNT 0 /CUMM (0.0-0.2); ABSOLUTE EOSINOPHIL COUNT 0.1 /CUMM (0.0-0.7); ABSOLUTE LYMPH COUNT 2.3 /CUMM (1.2-3.4); ABSOLUTE MONOCYTE COUNT 0.6 /CUMM (0.10-0.60); BASOPHIL % 0.7 % (0.0-2.0); GRANULOCYTE % 55.6 % (42.2-75.2); HEMATOCRIT 32.8 % (37-47); MEAN CORPUSCULAR HGB 27.5 PG (27.0-31.0); MEAN CORPUSCULAR VOLUME 83.5 FL (81.0-99.0); MEAN PLATELET VOLUME 7.6 FL (7.4-10.4); PLATELET COUNT 374 /CUMM (130-400); RED BLOOD CELL CT 3.93 /CUMM (4.20-5.40); WHITE BLOOD CELL COUNT 7.1 /CUMM (4.8-10.8)
[2016-11-05 15:05] VITALS: BP 138/80
[2016-11-05] MEDS ORDERED: IBUPROFEN400 M1 PO (18:20)
--- NOTE | 2016-11-05 18:27 | Patient Discharge Instructions ---
Discharge Instructions General Discharge Information You were seen/treated for: Knee pain Special Instructions: Please follow up with PCP in 1 week Diet Continue normal diet: Yes Activity Full Activity/No Limits: Yes Acute Coronary Syndrome Inclusion Criteria At DC or during hospital stay patient has or had the following: ACS DIAGNOSIS No Discharge Core Measures Meds if any: Prescribed or Continued at Discharge Meds if any: NOT Prescribed or Continued at Discharge Congestive Heart Failure Inclusion Criteria At DC or during hospital stay patient has or had the following: CHF DIAGNOSIS No Discharge Core Measures Meds if any: Prescribed or Continued at Discharge Meds if any: NOT Prescribed or Continued at Discharge Cerebrovascular accident Inclusion Criteria At DC or during hospital stay patient has or had the following: CVA/TIA Diagnosis No Discharge Core Measures Meds if any: Prescribed or Continued at Discharge Meds if any: NOT Prescribed or Continued at Discharge Venous thromboembolism Inclusion Criteria VTE Diagnosis No VTE Type NONE VTE Confirmed by (Test) NONE Discharge Core Measures - Per Current guidelines, there needs to be overlap - treatment for the first 5 days of Warfarin therapy. - If discharged on Warfarin prior to 5 days of - overlap therapy, the patient will need to be - assessed for post discharge needs including - *Post discharge parental anticoagulation - *Warfarin and/or parental anticoagulation education - *Follow up date to check INR post discharge At least 5 days overlap therapy as Inpatient No Meds if any: Prescribed or Continued at Discharge Note: Overlap Therapy is Warfarin and Anticoagulant Meds if any: NOT Prescribed or Continued at Discharge
[2016-11-05 22:09] VITALS: BP 114/82
[2016-11-06 06:58] VITALS: BP 120/62
--- NOTE | 2016-11-06 07:48 | PN- Housestaff ---
See Addendum Subjective Follow-up For: knee pain Subjective: pt feels pain under control today, and would like to go home. mental health case manager aware that she needs home pt, script for rolling walker written. plan to dc today. Review of Systems Constitutional: Reports: see HPI. Objective Last 24 Hrs of Vital Signs/I&O Vital Signs Date Time Temp Pulse Resp B/P B/P Pulse O2 O2 Flow FiO2 Mean Ox Delivery Rate 11/06 812 70 120/62 11/06 0658 97.5 70 20 120/62 96 11/05 2209 98.1 81 18 114/82 93 11/05 1505 98.1 96 20 138/80 94 Room Air 11/05 1027 98.3 97 20 140/88 Intake & Output 11/06 1600 11/06 0800 11/06 0000 Intake Total 200 Output Total Balance 200 Intake, Oral 200 Physical Exam General Appearance: Alert, Oriented X3, Cooperative, No Acute Distress Cardiovascular: Regular Rate, Normal S1, Normal S2 Lungs: Clear to Auscultation, Normal Air Movement Abdomen: Normal Bowel Sounds, Soft, No Tenderness Extremities: bl lymphedema and chronic venous insufficiency skin changes Current Medications: Current Medications Sig/Deuce Start time Last Medication Dose Route Stop Time Status Admin Acetaminophen 650 MG .STK-MED ONE 11/05 2014 DC PO 11/06 2015 Acetaminophen 650 MG Q6 PRN 11/04 2114 AC 11/05 PO 2014 Duloxetine HCl 90 MG DAILY 11/04 2199 AC 11/06 PO 08 Enoxaparin Sodium 40 MG DAILY 11/05 1000 AC 11/06 SC 0814 Fluocinonide 1 CAROL ANN BID 11/04 2199 AC 11/06 TOP 0815 Furosemide 20 MG DAILY 11/05 1000 AC 11/06 PO 0813 Hydroxychloroquine 200 MG DAILY 11/05 1000 AC 11/06 Sulfate PO 08 Ibuprofen 400 MG Q6P PRN 11/05 1100 AC 11/05 PO 2200 Lisinopril 40 MG DAILY 11/05 1000 AC 11/06 PO 08 Morphine Sulfate 60 MG BID 11/05 1000 AC 11/06 PO 0814 Morphine Sulfate 4 MG Q4P PRN 11/04 2114 AC 11/05 IV 1727 Oxycodone HCl 15 MG Q6 PRN 11/04 2114 AC 11/06 PO 0814 Assessment/Plan Assessment: Patient is a 56-year-old morbidly obese female with past medical history of hypertension, fibromyalgia, limited Lupus/cutaneous involvement, history of anemia , sleep apnea (noncompliant for CPAP), history of right total knee replacement (2013), planning for left knee replacement on 18 November, bilateral lower extremity lymphedema presented with chief complaints of pain in the left knee since last 2 weeks. Vital signs at the time of admission-temperature 98.0, pulse 83, respiratory rate 20, blood pressure 144/83, SPO2 96% on room air Pertinent labs - hemoglobin 10.3, hematocrit 31.5, BUN 18, Venous Doppler study- No evidence of deep venous thrombosis involving the left lower extremity. A 5.9 x 2.3 x 1.3 cm Mckay's cyst is identified within the left popliteal fossa. Plan - Pain in the left knee under evaluation, possibly secondary to patellar tendinitis along with silent Mckay's cyst * Pt admitted to , ready for discharge * We will give pain medication according to the pain protocol * Mild -Tylenol * Moderate -roxicodone * Ibuprofen 400 q6p for moderate pain * Severe pain -morphine * Will continue pain medication, patient was using at home including morphine and oxycodone * PT consult appreciated - [facility] home PT, rolling walker Hypertension - * We will continue lisinopril Fibromyalgia * Pain medication according to the pain protocol * We will continue Cymbalta 30, 60 milligrams every day (total 90 milligrams) Cutaneous lupus * We will continue Planquenil 200mg daily * We will advise her to follow-up with her webbing inspector as an outpatient Bilateral lower extremity edema secondary to lymphedema * Continue tablet furosemide 20 milligrams daily Sleep apnea -she says that she is noncompliant with CPAP Diet-heart healthy diet CODE STATUS-full code DVT prophylaxis- heparin Problem List: 1. Left knee pain Pain Ratin Pain Location: left knee Pain Goal: Pain 4 or less Pain Plan: ibuprofen morphine roxicodone Tomorrow's Labs & Rationales: none DVT/Prophylaxis: mechanical, pharmacological
[2016-11-06 08:13] VITALS: BP 120/62
--- NOTE | 2016-11-06 08:35 | Discharge Summary ---
Visit Information Visit Dates Admission Date: 11/04/16 Discharge Date: 11/06/16 Hospital Course Course Attending Physician: VIBHA MERCADO MD Primary Care Physician: ERIS GALICIA MD Hospital Course: Patient is a 56-year-old morbidly obese female with past medical history of hypertension, fibromyalgia, limited Lupus /cutaneous involvement, history of anemia , sleep apnea (noncompliant for CPAP ), history of right total knee replacement (2013), planning for left knee replacement on 18 November, bilateral lower extremity lymphedema presented with chief complaints of pain in the left knee for the last 2 weeks. Patient claims that she started having pain since last 2 weeks which was gradually progressive. She saw her orthopedic doctor who did an x-ray of left knee, which was unremarkable except showing small cyst behind the knee. She also saw vascular surgeon who did lower extremity Doppler which was negative for DVT. 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 Despite that the pain medication, her pain continued getting worse and was affecting her daily activities. A day before admission, she had an episode of fall, in which she fell on left elbow without any trauma and fracture. Pt was admitted for patellar tendinitis and pain was adequately controlled with ibuprofen, roxicodone, and morphine. Pt was assessed by PT who reccommended home PT, and patient went home with a rolling walker. Allergies: Coded Allergies: NO KNOWN ALLERGIES (UNKNOWN 10/22/16) Disposition Summary Disposition Principal Diagnosis: Patellar tendinitis Additional Diagnosis: Hypertension Sleep apnea Lupus Discharge Disposition: home health services Discharge Instructions General Discharge Information Code Status: Full Code Patient's Diet: Heart healthy Patient's Activity: As tolerated Follow-Up Instructions/Appts: F/U with PCP in 1 week Medications at Discharge Discharge Medications: Continue taking these medications: Oxycodone HCl (Oxycodone HCl) 15 MG TABLET 1-2 Tablet ORAL Q4H as needed for PAIN Qty = 180 Hydroxychloroquine Sulfate (Hydroxychloroquine Sulfate) 200 MG TABLET 1 Tablet ORAL DAILY Qty = 30 Comments: Last Taken: 11/06/16 Time: 0800 Lisinopril (Lisinopril) 40 MG TABLET 1 Tablet ORAL DAILY Qty = 30 Comments: Last Taken: 11/06/16 Time: 0800 Morphine Sulfate (Morphine Sulfate ER) 120 MG CPMP.24HR 1 Capsule ORAL Every Morning Qty = 30 Duloxetine HCl (Duloxetine HCl) 30 MG CAPSULE.DR 90 Milligram ORAL DAILY Qty = 30 Comments: Last Taken: 11/06/16 Time: 0800 Furosemide (Furosemide) 20 MG TABLET 1 Tablet ORAL DAILY Qty = 30 Comments: Last Taken: 11/06/16 Time: 0800 Olopatadine HCl (Pataday) 0.2 % DROPS 1 Drop In the eye DAILY Qty = 3 Nystatin (Nystop) 100,000 UNIT/GRAM POWDER 1 Application On the skin as needed for SKIN FOLDS Qty = 120 Betamethasone Dipropionate (Betamethasone Dipropionate) 0.05 % CREAM..G. 1 Application On the skin TWICE DAILY Qty = 45 Instructions: apply to affected area(s) Comments: Last Taken: 11/06/16 Time: 0800 Mupirocin (Mupirocin) 2 % OINT...G. 1 Application On the skin TWICE DAILY Qty = 44 Instructions: apply to affected area(s) Triamcinolone Acetonide (Triamcinolone Acetonide) 0.1 % CREAM..G. 1 Application On the skin as needed for SKIN Qty = 454 Diazepam (Valium) 5 MG TABLET 1 Tablet ORAL EVERY 8 HOURS NEEDED as needed for PAIN Qty = 30 Start taking the following new medications: Ibuprofen (Ibuprofen) 400 MG TABLET 1 Tablet ORAL EVERY SIX HOURS NEEDED as needed for moderate pain Qty = 20 No Refills Copies To: GRAYSON CRAVEN,ERIS Blake MD Review Statement Documenting Attending: JEANNETTE CRAVEN,DANIELEL
== END 2016-11-06 13:59 | disposition home health service (06) | DRG 558 ==
LOC: ERH 12:17 → 2NB 17:20 → ERHI 17:20 → 2NB 21:15 → ENPENDDIS 11-06 11:43 → 2NB 11-06 13:59
PROVIDERS: Student in an Organized Health Care Education/Training Program; ADMIT Student in an Organized Health Care Education/Training Program
DX: M76.52 Patellar tendinitis, left knee (principal); Z68.43 Body mass index [BMI] 50.0-59.9, adult; E66.01 Morbid (severe) obesity due to excess calories; I10 Essential (primary) hypertension; M79.7 Fibromyalgia; M06.9 Rheumatoid arthritis, unspecified; I89.0 Lymphedema, not elsewhere classified; M71.22 Synovial cyst of popliteal space [Baker], left knee; G89.4 Chronic pain syndrome; G47.33 Obstructive sleep apnea (adult) (pediatric); L93.1 Subacute cutaneous lupus erythematosus; R26.89 Other abnormalities of gait and mobility; I87.2 Venous insufficiency (chronic) (peripheral)
CPT/HCPCS: 2NBSP; 82436; 96374; 97116-GO; 97161-GP; J1650

== ENCOUNTER 2017-09-08 18:04 | Inpatient (IN) | payer OTHER ==
[~2017-09-08] VITALS: Ht 157.5 cm; Wt 158.8 kg
[~2017-09-08 18:04] MED LIST changes: +IBUPROFEN400 M1 PO
[2017-09-08] MEDS ORDERED: OXYCODONE HCL20 M2 PO (18:24)
[2017-09-08] MEDS ORDERED: ZALEPLON PO (18:25)
[2017-09-08 18:43] LABS: PT 13.9 SEC (9.4-12.5)
[2017-09-08 18:53] LABS: ABSOLUTE BASOPHIL COUNT 0 /CUMM (0.0-0.2); ABSOLUTE EOSINOPHIL COUNT 0 /CUMM (0.0-0.7); ABSOLUTE GRANULOCYTE CT 17.6 /CUMM (1.4-6.5); ABSOLUTE LYMPH COUNT 0.7 /CUMM (1.2-3.4); ABSOLUTE MONOCYTE COUNT 0.7 /CUMM (0.10-0.60); BASOPHIL % 0.1 % (0.0-2.0); EOSINOPHIL % 0 % (0-5); HEMATOCRIT 30.5 % (37-47); MEAN CORPUSCULAR HGB 25.8 PG (27.0-31.0); MEAN CORPUSCULAR HGB CONC 32.5 G/DL (33.0-37.0); MEAN CORPUSCULAR VOLUME 79.4 FL (81.0-99.0); MEAN PLATELET VOLUME 8.1 FL (7.4-10.4); PLATELET COUNT 335 /CUMM (130-400); RBC DISTRIBUTION WIDTH 16.7 % (11.5-14.5); RED BLOOD CELL CT 3.84 /CUMM (4.20-5.40)
[2017-09-08 18:57] LABS: GRANULOCYTE % 92.4 % (42.2-75.2)
--- NOTE | 2017-09-08 19:56 | ED GENERAL ADULT ---
History of Present Illness General Chief Complaint: Altered Mental Status Stated Complaint: BIBA AMS Source: patient Exam Limitations: no limitations Allergies Coded Allergies: NO KNOWN ALLERGIES (UNKNOWN 10/22/16) Triage Note: PT BIBA FROM HOME. PER EMS PT WAS LAST SEEN AT [facility] THIS MORNING BEFORE LEFT FOR WORK. PT WAS NOT ANSWERING FAMILY PHONE CALLS AND WAS FOUND BY FAMILY TO BE ALTERED. PT IS ALERT TO SELF ONLY. PT IS MOANING, NOT ANSWERING QUESTIONS APPROPRIATELY. IV ACCESS ESTABLISHED. LABS DRAWN. PA AT BEDSIDE FOR EVAL. Triage Nurses Notes Reviewed? yes Onset: Abrupt Duration: hour(s): Timing: constant HPI: 57 year old female with PMH of HTN, fibromyalgia, RA, SLE, and bilateral knee replacements (with left knee revision a few weeks ago) BIBA with AMS. Pt was last seen normal early this morning when her left for work. found the pt to be altered when he got home from work. On arrival to the ED pt is febrile, alert, but non-verbal. Pt is moaning and moving extremities spontaneously, withdraws to pain. Currently on oxycodone 15mg q4-6 hours prn for pain after her recent knee surgery. (Kayce GRANDE,Alka) Reconcile Medications Duloxetine HCl 30 MG CAPSULE.DR 30 MG PO QHS NERVE PAIN (Reported) Hydroxychloroquine Sulfate 200 MG TABLET 1 TAB PO DAILY LUPUS (Reported) Lisinopril 40 MG TABLET 1 TAB PO DAILY BP (Reported) Morphine Sulfate (Morphine Sulfate ER) 120 MG CPMP.24HR 1 CAP PO QAM PAIN ( Reported) Oxycodone HCl 15 MG TABLET 1 TAB PO Q4H PAIN (Reported) Triamcinolone Acetonide 0.1 % CREAM..G. 1 CAROL ANN TOP PRN SKIN (Reported) Zaleplon 5 MG CAPSULE 1-2 CAP PO QHS UNKNOWN (Reported) (Geovany Cameron DO) Vital Signs & Intake/Output Vital Signs & Intake/Output Vital Signs Date Time Temp Pulse Resp B/P B/P Pulse O2 O2 Flow FiO2 Mean Ox Delivery Rate 09/09 1359 98.0 86 20 139/76 98 Nasal 2.0L Cannula 09/09 1007 Nasal 2.0L Cannula 09/09 0900 105/65 09/09 0800 96 Nasal 2.0L Cannula 09/09 0655 98.1 87 21 100/58 91 09/09 0400 94 Nasal 2.0L Cannula 09/09 0319 97.2 89 22 129/70 95 09/09 0154 99.2 80 18 152/80 95 Room Air 09/08 2327 99.0 99 22 158/74 95 Room Air 09/08 2030 96 Nasal 4.0L Cannula 09/09 2027 101.2 107 24 137/59 92 Nasal 4.0L Cannula 09/08 1809 102.8 108 24 170/82 93 Nasal Cannula ED Intake and Output 09/09 0000 09/08 1200 Intake Total 0 Output Total Balance 0 Intake, Oral 0 (Mary Beth CRAVEN,Geovany Roland) Past History Travel History Traveled to [place] past 21 day No Medical History Any Pertinent Medical History? see below for history Neurological: NONE EENT: DEVIATED SEPTUM Cardiovascular: hypertension Respiratory: NONE Gastrointestinal: NONE Hepatic: NONE Renal: NONE Musculoskeletal: fibromyalgia, rheumatoid arthritis, LUPUS Psychiatric: NONE Endocrine: NONE Other Medical Hx: morbid obesity History of MRSA: No History of VRE: No History of CDIFF: No Tetanus Vaccine: 10/22/16 Surgical History Surgical History: right total knee replacement Psychosocial History Who do you live with Spouse Services at Home None What is your primary language Greek Tobacco Use: Cognitive Impairment Family History Family History, If Any: FATHER (lung cancer). grandmother (HTN, DM). Hx Contributory? No (Alka Gamino) Review of Systems Review of Systems Constitutional: Reports: fever. EENTM: Reports: no symptoms. Respiratory: Reports: no symptoms. Cardiovascular: Reports: no symptoms. GI: Reports: no symptoms. Genitourinary: Reports: no symptoms. Musculoskeletal: Reports: no symptoms. Skin: Reports: no symptoms. Neurological/Psychological: Reports: no symptoms. Hematologic/Endocrine: Reports: no symptoms. Immunologic/Allergic: Reports: no symptoms. (Alka Gamino) Physical Exam Physical Exam General Appearance: well developed/nourished, alert, awake, obese, Alert, but non-verbal. Moans spontaneously. Head: atraumatic, normal appearance Eyes: Bilateral: PERRL, EOMI. Neck: normal inspection, supple, no midline tenderness Respiratory: normal breath sounds, lungs clear Cardiovascular: regular rate/rhythm Gastrointestinal: soft, non-tender Back: normal inspection, no vertebral tenderness Extremities: normal range of motion, Bilateral lower extremity edema, trace erythema to distal LLE ( reports both are basleine for pt). Neurologic/Psych: awake, alert, Alert, non-verbal, moans spontaneously, moves all 4 extremities spontaneously, withdraws to pain, PERRL. Skin: intact, warm/dry Core Measures ACS in differential dx? Yes CVA/TIA Diagnosis: No Sepsis Present: No Sepsis Focused Exam Completed? Yes (Alka Gamino) Progress Differential Diagnoses I considered the following diagnoses in my evaluation of the patient: [Infection vs metabolic derrangment vs tox vs acute neuro event vs ACS] Initial ED EKG: rhythm (sinus), Initial EKG with ST elevation in anterioseptal leads. Repeat EKG with no ST segment or T wave abnormalities. (Kayce GRANDE,Alka) Plan of Care: Orders Procedure Date/time Status Regular Diet 09/09 L Complete Regular Diet 09/09 D Active Nothing by Mouth 09/09 B Complete CULTURE,URINE 09/09 1352 Active URINALYSIS 09/09 1332 Complete RT: Evaluation 09/09 1007 Active LOWER RESPIRATORY CULTURE 09/09 0953 Active LACTIC ACID 09/09 0734 Active Turn and Reposition 09/09 0630 Active Skin Integrity Protocol 09/09 0630 Active Skin/Pressure Ulcer Assess (Sk 09/09 0630 Active CBC WITHOUT DIFFERENTIAL 09/09 0600 Complete BASIC ELECTROLYTES PLUS BUN&CR 09/09 0600 Complete Weight 09/09 0441 Complete Vital Signs 09/09 0441 Active Teach/Educate 09/09 0441 Active Pain Treatment and Response 09/09 0441 Active Nutritional Intake, Monitor 09/09 0441 Active Isolation 09/09 0441 Active Intake & Output 09/09 0441 Active Patient Care Conference 09/09 0441 Active Activity/Ambulation 09/09 0441 Active TRC EVALUATION (GEN) 09/09 0233 Complete Pathway - chart 09/09 0233 Active House Staff 09/09 0233 Active Patient Data 09/09 0233 Active Code Status 09/09 0233 Active RAPID VIRAL INFLUENZA A 09/09 0150 Complete Patient Data 09/09 0055 Active Patient Safety Monitor 09/09 0005 Active Misc Message 09/09 0004 Active ED Holding Orders 09/09 0004 Active Admit to inpatient 09/09 0004 Active Vital Signs 09/09 0004 Active Code Status 09/09 0004 Complete THERAPIST ORDERS 09/09 UNK Complete OXYGEN SETUP (GEN) 09/09 UNK Complete Lab Add-on Test 09/09 UNK Active VTE Mechanical Prophylaxis 09/09 UNK Active Vital Signs 09/09 UNK Complete Precautions 09/09 UNK Complete NIH Stroke Scale 09/09 UNK Active Hemoccult 09/09 UNK Active THROAT CULTURE W/QUICK STREP 09/08 2329 Active Palacio, Insertion/Removal/Asses 09/08 2300 Active CULTURE,URINE 09/08 2252 Active URINE DRUGS OF ABUSE 09/08 2252 Complete ARTERIAL BLOOD GAS (GEN) 09/08 1955 Complete EKG 09/08 1909 Active THYROID STIMULATING HORMONE 09/08 1850 Complete TOTAL IRON BINDING CAPACITY 09/08 1850 Complete LDH (LACT ACID DEHYDROGENASE) 09/08 1850 Complete FOLIC ACID 09/08 1850 Complete FERRITIN 09/08 1850 Complete SERUM IRON 09/08 1850 Complete C-REACTIVE PROTEIN 09/08 1850 Complete VITAMIN B12 09/08 1850 Complete RETICULOCYTE COUNT 09/08 1827 Complete WESTERGREN SED RATE 09/08 1827 Complete PROTHROMBIN TIME 09/08 1826 Complete TYPE & SCREEN (NOT X-MATCH) 09/08 1826 Complete Intake & Output 09/08 1824 Active BLOOD CULTURE 09/08 1824 Active URINALYSIS 09/08 1824 Complete TROPONIN LEVEL 09/08 1824 Complete MAGNESIUM 09/08 1824 Complete LACTIC ACID 09/08 1824 Complete COMPREHENSIVE METABOLIC PANEL 09/08 1824 Complete CBC WITHOUT DIFFERENTIAL 09/08 1824 Complete EKG 09/08 1818 Active Current Medications Sig/Deuce Start time Last Medication Dose Stop Time Status Admin Duloxetine HCl 60 MG QPM 09/09 2200 AC (Cymbalta) Duloxetine HCl 30 MG QAM 09/09 1000 AC 09/09 (Cymbalta) 0925 Hydroxychloroquine 200 MG DAILY 09/09 1000 CAN Sulfate (Plaquenil 200MG Tab) Lisinopril 40 MG DAILY 09/09 1000 CAN (Prinivil) Oxycodone HCl 15 MG Q4 PRN 09/09 0919 AC 09/09 (Roxicodone) 1329 Dextrose/Sodium 1,000 ML Q10H 09/09 0745 AC 09/09 Chloride 0817 (D5-Normal Saline) Acetaminophen 975 MG Q8 09/09 0600 CAN (Tylenol) Acetaminophen 1,000 MG Q8 09/09 0600 AC 09/09 (Ofirmev) 1415 N/A 1 UNIT (No Carrier) Heparin Sodium 5,000 UNIT Q8 09/09 0600 AC 09/09 (Porcine) 1415 Ampicillin Sodium/ 3,000 MG Q6H 09/09 0300 09/09 Sulbactam Sodium 0812 (Unasyn) Sodium Chloride 100 ML (Normal Saline 0.9%) Non-Formulary 3.375 UNIT ONCE ONE 09/08 183 CAN Medication 09/08 1831 (NON FORMULARY) Laboratory Tests 09/09/17 1352: Urinalysis LIGHT H, Urine Color YEL, Urine Clarity HAZY H, Urine pH 6.0, Ur Specific Rawlings 1.025, Urine Protein TRACE H, Urine Ketones NEG, Urine Nitrite NEG, Urine Bilirubin NEG, Urine Urobilinogen 0.2, Ur Leukocyte Esterase NEG, Ur Microscopic SEDIMENT EXAMINED, Urine RBC >75 H, Urine WBC 3-5 H, Ur Epithelial Cells MOD H, Urine Bacteria FEW H, Urine Mucus MANY H, Urine Hemoglobin MOD H, Urine Glucose NEG 09/09/17 0745: Anion Gap 5, Estimated GFR > 60, BUN/Creatinine Ratio 33.3 H, CBC w Diff NO MAN DIFF REQ, RBC 3.38 L, MCV 80.3 L, MCH 26.3 L, MCHC 32.7 L, RDW 16.7 H, MPV 7.8, Gran % 85.5 H, Lymphocytes % 10.6 L, Monocytes % 3.7, Eosinophils % 0, Basophils % 0.2, Absolute Granulocytes 13.3 H, Absolute Lymphocytes 1.7, Absolute Monocytes 0.6, Absolute Eosinophils 0, Absolute Basophils 0 09/08/17 2252: Urine Opiates Screen > 4000.00 H, Methadone Screen < 40, Barbiturate Screen < 60, Ur Phencyclidine Scrn < 6.00, Amphetamines Screen < 100, U Benzodiazepines Scrn < 85, Urine Cocaine Screen < 50, Urine Cannabis Screen < 5.00, Urine Color YEL, Urine Clarity CLEAR, Urine pH 6.0, Ur Specific Rawlings 1.010, Urine Protein NEG, Urine Ketones NEG, Urine Nitrite NEG, Urine Bilirubin NEG, Urine Urobilinogen 0.2, Ur Leukocyte Esterase NEG, Ur Microscopic SEDIMENT EXAMINED, Urine RBC RARE, Ur Epithelial Cells RARE, Urine Bacteria MOD H, Urine Hemoglobin TRACE-INTACT, Urine Glucose NEG 09/08/172123: Lactic Acid Cancelled 09/08/172039: pH 7.44, pCO2 34 L, pO2 70 L, HCO3 23, ABG O2 Sat (Measured) 92.0 L, P-50 ( Temp Corrected) Y, Carboxyhemoglobin 0.6 L, O2 Concentration % 4L, Temperature 101.2 H, O2 Delivery Method NC, Phlebotomy Draw Site RIGHT RADIAL 09/08/17 1850: Anion Gap 9, Estimated GFR > 60, BUN/Creatinine Ratio 36.0 H, Glucose 137 H, Lactic Acid 1.4, Calcium 9.9, Magnesium 1.6, Iron 25 L, TIBC 326, Ferritin 67.3 , Total Bilirubin 0.6, AST 26, ALT 21, Alkaline Phosphatase 84, Lactate Dehydrogenase 659 H, Troponin I 0.03, C-Reactive Prot, Quant 6.4 H, Total Protein 8.5 H, Albumin 3.6, Globulin 4.9 H, Albumin/Globulin Ratio 0.7 L, Vitamin B12 262, Folate 19.4, TSH 0.392 09/08/171826: PT 13.9 H, INR 1.27 H, CBC w Diff MAN DIFF ORDERED, RBC 3.84 L, MCV 79.4 L, MCH 25.8 L, MCHC 32.5 L, RDW 16.7 H, MPV 8.1, Gran % 92.4 H, Lymphocytes % 3.6 L, Monocytes % 3.9, Eosinophils % 0, Basophils % 0.1, Absolute Granulocytes 17.6 H, Segmented Neutrophils 76 H, Band Neutrophils 11 H, Absolute Lymphocytes 0.7 L, Lymphocytes 7 L, Monocytes 5, Absolute Monocytes 0.7 H, Absolute Eosinophils 0, Absolute Basophils 0, Metamyelocytes 1, Platelet Estimate ADEQUATE, Polychromasia 1+, Hypochromic-Microcytic 2+, Anisocytosis 1+, Microcytic Cells 1+, ESR Westergren 40 H, Retic Count 2.18 H Microbiology 09/09 1352 URINE ROUT: Urine Culture - RECD 09/09 0953 LOWER RESP: Respiratory Culture - COLB 09/09 0953 LOWER RESP: Gram Stain - COLB 09/09 0230 NASOPHARYN: Influenza Virus A & B Rapid Smear - COMP 09/08 2252 URINE ROUT: Urine Culture - RECD 09/08 184 BLOOD: Blood Culture - RES 09/08 1835 BLOOD: Blood Culture - RES 09/08 1824 URINE ROUT: Urine Culture - CAN Cancelled: DUPLICATE Initial EKG showed STEMI in anteroseptal leads, but was possibly due to artifact as pt was agitated and unable to hold still during the EKG. Repeat EKG a few mins later showed sinus rhythm with no ST segment or T wave abnormalities. Trop 0.03, will repeat in 3 hours. Pt was given 0.2mg IV narcan with significant improvement in mental status. After narcan pt is now verbal, A&Ox4. Continues to moan and inappropriately answer questions. Not completely back to baseline after narcan. Concern for concurrent involvement from infectious source leading to AMS as the pt has been febrile. Labs remarkable for WBC of 19. Source of infection unclear, UA not concerning for infection. Pt was covered empirically for sepsis of unknown etiology with vanc/zosyn. Upon further questioning states pt was recently on an abx for sore throat, but unsure of dx. Strep swab ordered and pending. CT head and c-spine unremarkable. CXR unremarkable. Pt will need to be admitted for further eval of her AMS. Signed out to Dr. Clinton with admission orders and hospitalist consult pending. (Alka Gamino) Comments: 09/08/2017 11:58:43 PM patient signed out to me by PA at shift policy change clerk. I have discussed her case with the hospitalist Dr. Cummins. (Mary Beth CRAVEN,Geovany Roland) Departure Departure Condition: Stable Referrals: Green Jun CRAVEN (PCP/Family) Departure Forms: Customer Survey General Discharge Information (Alka Gamino) PA/PRACTICAL MINISTRIES PROFESSOR Co-Sign Statement Statement: ED Attending supervision documentation- [X] I saw and evaluated the patient. I have also reviewed all the pertinent lab results and diagnostic results. I agree with the findings and the plan of care as documented in the PA's/PRACTICAL MINISTRIES PROFESSOR's documentation. [] I have reviewed the ED Record and agree with the PA's/PRACTICAL MINISTRIES PROFESSOR's documentation. [] Additions or exceptions (if any) to the PAs/PRACTICAL MINISTRIES PROFESSOR's note and plan are summarized below: [] I have seen and personally examined the patient and I agree with the PAs evaluation. 57-year-old female who has been recovering from bilateral knee replacements on Percocet. She was in severe pain last night according to the . This morning she was asleep. When he came home she was unresponsive. EMS arrived and brought her to the emergency department. She was lethargic. Fingerstick was in the 170s, she was given Narcan and awoke and became alert and oriented. She does have significant cellulitis to the left lower extremity. Initial EKG revealed anteroseptal ST segment elevation. This was repeated and was determined to be motion artifact. EKG was reviewed with Dr. Cabrales. The patient did have a fever of 102, diagnostic considerations include sepsis, aspiration pneumonia, cellulitis, urosepsis, septic arthritis. (Rakesh CHRISTIANSEN,Geovany Saldivar) Departure Disposition: STILL A PATIENT Clinical Impression Primary Impression: Altered mental status Qualifiers: Altered mental status type: stupor Qualified Code: R40.1 - Stupor Secondary Impressions: Febrile illness Leukocytosis Qualifiers: Leukocytosis type: unspecified Qualified Code: D72.829 - Elevated white blood cell count, unspecified Narcotic overdose Qualifiers: Encounter type: initial encounter Injury intent: accidental or unintentional Qualified Code: T40.601A - Poisoning by unspecified narcotics, accidental (unintentional), initial encounter Admission Note [facility] Documentation of Exam: Documentation of any treatments & extenuating circumstances including Concerns Regarding Discharge (functional status, medication knowledge or non-compliance, living conditions, etc.) that warrant an admission rather than observation: Patient has high fever and elevated white blood cell count of unknown etiology. In addition she presented in altered mental status that was responsive to Narcan suggesting an opiate overdose. Given the unclear etiology of this patient's fever and therefore difficulty in predicting her clinical course in combination with her opiate overdose, I feel she is a poor candidate for outpatient management. I feel she would have great difficulty in compliance with outpatient treatment given her chronic pain and opiate use. In addition I feel her fever does place her at risk of bacteremia and sepsis and she could potentially return in worse clinical condition if outpatient treatment were attempted. I feel she now requires hospitalization for an aggressive management with IV antibiotics and monitoring of her clinical condition and vital signs. Culture results should be followed and treated accordingly. If patient doesn't respond clinically to treatment, infectious disease consultation should be considered. If her mental status does not return to baseline and then neurology consultation should be considered. Patient's pain medications should be reviewed and alternatives to opiates considered in managing her pain. Orthopedic consultation should be considered given the patient's knee replacement surgeries. Considering the patient's multiple acute medical issues I feel she will require a multiple day hospitalization. (Mary Beth CRAVEN,Geovany Roland) Critical Care Note Critical Care Note Critical Care Time: 30-74 min (Mary Beth CRAVEN,Geovany Roland)
--- NOTE | 2017-09-08 20:45 | RADIOLOGY REPORT ---
EXAMINATION:\H\ \N\XR CHEST CLINICAL INFORMATION: Altered mental status COMPARISON: Chest x-ray 06/28/2016 TECHNIQUE: Frontal view of the chest was obtained. 8:24 PM FINDINGS: Lungs are clear. No pulmonary vascular congestion. There is no pleural effusion. The heart size is normal. The cardiac and mediastinal contours are normal. There are multilevel degenerative changes of dorsal spine. IMPRESSION: Unremarkable examination.
--- NOTE | 2017-09-08 21:29 | CT SCAN REPORT ---
EXAMINATION: CT HEAD WITHOUT CONTRAST CT CERVICAL SPINE WITHOUT CONTRAST CLINICAL INFORMATION: Altered mental status. Vertebral fracture. COMPARISON: None. TECHNIQUE: Imaging was performed from the skull base to vertex without intravenous administration of contrast. In addition, helical noncontrast CT imaging was acquired through the cervical spine and source images were reviewed along with axial reconstructions and sagittal and coronal MPRs. DLP: 1803.27 mGy-cm FINDINGS: HEAD: There is head motion throughout the study limiting the exam. The exam was repeated. There is no gross abnormality. No intracranial mass, hemorrhage, or midline shift is visualized. The ventricles and sulci are age-appropriate. No extra-axial collections are identified. There is some mucosal thickening in the inferior ethmoid sinuses. There is a small amount of fluid in the left mastoid a moderate amount of fluid in the right mastoid air cells. Middle ear cavities are normally aerated. CERVICAL SPINE: There is motion which degrades the study. The exam is not diagnostic. The C1 through the C4 vertebrae are normal. The lower cervical spine no prior thoracic spine is not seen due to the motion artifact. IMPRESSION: 1. No acute intracranial pathology. 2. Nondiagnostic CT of cervical spine. This critical result was discussed with PA. Devries on 09/08/2017, 9:22 PM and it was ascertained that the content and urgency of the report was understood at the time of direct communication.
--- NOTE | 2017-09-09 00:57 | History & Physical ---
Milena CRAVEN,Manuel 09/09/17 0057: General Information and HPI History of Present Illness: Ms. Rodriguez is a 57 year old female with PMH of deviated septum, HTN, fibromyalgia, RA, SLE, obesity, LUIS, and bilateral knee replacements who presents with AMS. Patient is intermittently asleep and then awakes writhing in pain for a few seconds. She does complain of nonspecific pain in her knees and feet but is unable to give further details. Per , patient was in usual state of health but did not sleep well the night prior. She then slept most the day, and when the came home around 5:30pm, he found her lethargic and complaining of "something" being wrong. He then brought her in for further evaluation. He does mention she had a sore throat recently and received a course of amoxicillin. Allergies/Medications Allergies: Coded Allergies: NO KNOWN ALLERGIES (UNKNOWN 10/22/16) Past History Travel History Traveled to [place] past 21 day No Medical History Neurological: NONE EENT: DEVIATED SEPTUM Cardiovascular: hypertension Respiratory: NONE Gastrointestinal: NONE Hepatic: NONE Renal: NONE Musculoskeletal: fibromyalgia, rheumatoid arthritis, LUPUS Psychiatric: NONE Endocrine: NONE Other Medical Hx: morbid obesity History of MRSA: No History of VRE: No History of CDIFF: No Isolation History: Standard Tetanus Vaccine: 10/22/16 Surgical History Surgical History: right total knee replacement Past Family/Social History Family History Relations & Conditions if any FATHER (lung cancer). grandmother (HTN, DM). Psychosocial History Services at Home: None Review of Systems Review of Systems Constitutional: Reports: see HPI. EENTM: Reports: no symptoms. Cardiovascular: Reports: no symptoms. Respiratory: Reports: no symptoms. GI: Reports: no symptoms. Genitourinary: Reports: no symptoms. Musculoskeletal: Reports: no symptoms. Skin: Reports: no symptoms. Neurological/Psychological: Reports: no symptoms. Hematologic/Endocrine: Reports: no symptoms. Immunologic/Allergic: Reports: no symptoms. All Other Systems: Reviewed and Negative Exam & Diagnostic Data Last 24 Hrs of Vital Signs/I&O Vital Signs Date Time Temp Pulse Resp B/P B/P Pulse O2 O2 Flow FiO2 Mean Ox Delivery Rate 09/08 2326 99.0 99 22 158/74 95 Room Air 09/08 2029 96 Nasal 4.0L Cannula 09/09 2027 101.2 107 24 137/59 92 Nasal 4.0L Cannula 09/08 180 102.8 108 24 170/82 93 Nasal Cannula Intake & Output 09/09 0800 09/09 0000 09/08 1600 Intake Total 0 Output Total Balance 0 Intake, Oral 0 Physical Exam General Appearance Oriented X3, solmulent, not answering most questions. Very obese Skin chronic changes noted on bilateral lower extremities. Sepsis Skin Exam (color): Normal for Ethnicity HEENT Atraumatic, pupils constricted, minimally reactive to light Cardiovascular Regular Rate, Normal S1, Normal S2 Lungs Clear to Auscultation Abdomen Normal Bowel Sounds, Soft, No Tenderness, obese Extremities large, extremely edematous but nonpitting with scars on bilateral knees. There is a small ulceration on the left LE without drainage or tenderness. Vascular Pulses are unable to be felt due to the patients obesity/edema Sepsis Peripheral Pulse Location: unable to palpate Sepsis Peripheral Pulse Exam: unable to palpate Sepsis Cap Refill Exam: <2 Sec Last 24 Hrs of Labs/Ibrahima: Laboratory Tests 09/08/172251: Urine Color YEL, Urine Clarity CLEAR, Urine pH 6.0, Ur Specific [place] 1.010, Urine Protein NEG, Urine Ketones NEG, Urine Nitrite NEG, Urine Bilirubin NEG, Urine Urobilinogen 0.2, Ur Leukocyte Esterase NEG, Ur Microscopic SEDIMENT EXAMINED, Urine RBC RARE, Ur Epithelial Cells RARE, Urine Bacteria MOD H, Urine Hemoglobin TRACE-INTACT, Urine Glucose NEG 09/08/172123: Lactic Acid Cancelled 09/08/172039: pH 7.44, pCO2 34 L, pO2 70 L, HCO3 23, ABG O2 Sat (Measured) 92.0 L, P-50 ( Temp Corrected) Y, Carboxyhemoglobin 0.6 L, O2 Concentration % 4L, Temperature 101.2 H, O2 Delivery Method NC, Phlebotomy Draw Site RIGHT RADIAL 09/08/17 1850: Anion Gap 9, Estimated GFR > 60, BUN/Creatinine Ratio 36.0 H, Glucose 137 H, Lactic Acid 1.4, Calcium 9.9, Magnesium 1.6, Total Bilirubin 0.6, AST 26, ALT 21 , Alkaline Phosphatase 84, Troponin I 0.03, Total Protein 8.5 H, Albumin 3.6, Globulin 4.9 H, Albumin/Globulin Ratio 0.7 L 09/08/17 182: PT 13.9 H, INR 1.27 H, CBC w Diff MAN DIFF ORDERED, RBC 3.84 L, MCV 79.4 L, MCH 25.8 L, MCHC 32.5 L, RDW 16.7 H, MPV 8.1, Gran % 92.4 H, Lymphocytes % 3.6 L, Monocytes % 3.9, Eosinophils % 0, Basophils % 0.1, Absolute Granulocytes 17.6 H, Segmented Neutrophils 76 H, Band Neutrophils 11 H, Absolute Lymphocytes 0.7 L, Lymphocytes 7 L, Monocytes 5, Absolute Monocytes 0.7 H, Absolute Eosinophils 0, Absolute Basophils 0, Metamyelocytes 1, Platelet Estimate ADEQUATE, Polychromasia 1+, Hypochromic-Microcytic 2+, Anisocytosis 1+, Microcytic Cells 1+ Microbiology 09/09 1847 BLOOD: Blood Culture - RECD 09/08 1834 BLOOD: Blood Culture - RECD 09/09 1823 URINE ROUT: Urine Culture - ORD Assessment/Plan Assessment: Ms. Rodriguez is a 57 year old female with PMH of deviated septum, HTN, fibromyalgia, RA, SLE, obesity, LUIS, and left knee replacement (revision in 2016) who presents with AMS. On presentation, vitals were T 102.8, HR 108, RR 24, BP 170/82, saturating 93% on 4L NC. Laboratories are significant for white blood cell count 19.0, 11 bands , hemoglobin 9.9, sodium 135, BUN 18, creatinine 0.5, lactic acid 1.4, INR 1.27, negative urinalysis. ABGs showed carbon dioxide 34, oxygen 70, pH 7.44. CT head/ spine and chest x-ray were negative for any acute processes. She will be admitted to general medicine and treated for the following problems: 1. Altered mental status 2. SIRS 3. Microcytic anemia 4. Leukocytosis with bandemia #AMS/SIRS/Leukocytosis: Patient presents with altered mental status, 4/4 SIRS criteria, and history of knee replacement (with recent revision). Infection is highly suspected but source if not clear. Most suspicious source would be the knee but may also be FINGERER. Exam does not show any obvious erythema, swelling, or warmth comparing the knees, though both legs are extremely edematous and large. Apparently her mental status improved with naloxone administration. Lungs/urine clear. SOFA score 2. -Utox -Follow cultures -ID consult -Ortho consult -XRY knees -Amp/sulbactam -Consider LP if persistent AMS/fevers #Microcytic anemia: No obvious source of bleeding. -Iron studies -Stool guaic #Chronic medical problems: Continue home meds. DVT ppx with enoxaparin NPO Full code As Ranked By This Provider Problem List: 1. Leukocytosis Qualifiers Leukocytosis type: unspecified Qualified Code: D72.829 - Elevated white blood cell count, unspecified 2. Altered mental status Qualifiers Altered mental status type: stupor Qualified Code: R40.1 - Stupor Core Measures/Misc (03/12) Acute Coronary Syndrome ACS Diagnosis: No Congestive Heart Failure Congestive Heart Failure Diagnosis No Cerebrovascular Accident CVA/TIA Diagnosis: No VTE (View Protocol) VTE Risk Factors Age>40 No Mechanical VTE Prophylaxis d/t Medical Contraindication No VTE Pharm Prophylaxis d/t NA PharmProphylax ordered Sepsis (View protocol) Sepsis Present: Yes Nathanael CRAVEN, [facility] 09/09/17 0153: General Information and HPI Allergies/Medications Home Med list Duloxetine HCl 30 MG CAPSULE.DR 30 MG PO QHS NERVE PAIN (Reported) Hydroxychloroquine Sulfate 200 MG TABLET 1 TAB PO DAILY LUPUS (Reported) Lisinopril 40 MG TABLET 1 TAB PO DAILY BP (Reported) Morphine Sulfate (Morphine Sulfate ER) 120 MG CPMP.24HR 1 CAP PO QAM PAIN ( Reported) Oxycodone HCl 15 MG TABLET 1 TAB PO Q4H PAIN (Reported) Triamcinolone Acetonide 0.1 % CREAM..G. 1 CAROL ANN TOP PRN SKIN (Reported) Zaleplon 5 MG CAPSULE 1-2 CAP PO QHS UNKNOWN (Reported) Attending MD Review Statement Attending Statement Attending MD Statement: examined this patient, discuss w/resident/PA/SUPERVISOR PREPRESS, agreed w/resident/PA/SUPERVISOR PREPRESS, reviewed images, amended to note Attending Assessment/Plan: 57 yo morbidly obese F with h/o fibromyalgia, chronic pain on opiates, cutaneous lupus on plaquenil, OA, HTN, chronic LE edema, LUIS not using CPAP, is brought in for altered mental status. History obtained from patient's and ER records. Patient is arousable but intermittently falls asleep and does not provide adequate history. She is only c/o pain in her knee and back. Patient underwent left total knee replacement in December 2014, subsequently patient had hardware infection requiring antibiotic spacer placement and prolonged IV antibiotics (December 2016) and subsequent revision surgery (Apr 2017) at [facility] by Orthopedician Dr. Cain. Patient is taking oxycodone and morphine SR for chronic pain prescribed by Dr. Lazaro Reyes (pain management). According to , patient was diagnosed with a sore throat 2 weeks ago and was prescribed amoxicillin for 7 days. Patient has been taking oxycodone every 4hours for pain and she did not sleep well a night prior. He saw her last normal on Monday morning. When he returned from work on Monday evening at 5.30 pm, she did not appear her normal self. She was lethargic. On ER arrival, she received Narcan sky improvement in her mentation although not completely back to baseline. Please note, patient also received two doses of Ativan in the ER. Vitals: Tmax 102.8, HR 90-110's, BP 120-130's/ 70-80's, sats 85% RA --> 96% on 4 L --> 95% RA. Exam: lethargic but arousable and responds to questions intermittently falling asleep. Dry mucous membranes, pallor+, unable to assess posterior pharyngeal erythema. Chest clear, Heart S1S2 regular, Abd soft, NT. Left knee incision site C/D/I, no obvious swelling or discharge. B/l LE chronic edema and venous stasis changes, no cellulitic changes. Left knee incision appears clean/ dry, there is a dressing to the inferior aspect of the incision - a small opening visible without any discharge noted. Labs: WBC 19, bands 11, H/H 9.9/30.5 (baseline 10-11/ 34-35), ESR 40, INR 1.27, Na 135, BUN 18, glucose 137, lactic acid 1.4, LFT normal, trop neg. UA clear. Utox positive for opiates >4000. AB.44/34/70/23. CT head/ cervical spine no acute pathology. CXR: unremarkable exam. EKG: sinus tachycardia, Qtc 445, no acute changes. Assessment and plan: 1. Altered mental status 2. Opioid intoxication 3. Acute hypoxemic respiratory failure 4. SIRS/ Sepsis unclear etiology possible aspiration pneumonitis vs left knee hardware infection, no UTI or SSTI/ cellulitis. Cannot rule out encephalitis or meningitis. No documentation of diarrhea. 5. Microcytic anemia 6. Chronic pain on opiate 7. History of lupus and fibromyalgia - Admit to general medicine - Neurochecks Q4 - Fall and aspiration precautions - NPO until mental status improves - IV fluids - Panculture - Patient received IV Zosyn and Vanco in the ER, we will continue with IV Unasyn for now - Obtain ID consult in AM - Get bilateral knee Xrays - Obtain records from Dr. Cain at [facility] - Obtain Ortho consult - Work up anemia guaiac stool, iron studies, TSH, B12, folic acid, LDH, retic count. - Resume oxycodone Q6 PRN, hold off long acting morphine SR for now resume in AM as able. - Hold plaquenil - Hold lisinopril can resume once BP stable DVT ppx Hep SC. Full code. Suman CRAVEN,[facility] 09/09/17 0541: Resident Review Statement Resident Statement: examined this patient, discussed with tax services intern, agreed with tax services intern, discussed with family Other Findings: Ms. Rodriguez is 57 year old female with past medical history significant for hypertension, fibromyalgia, lupus limited to skin, anemia, sleep apnea noncompliant with CPAP, left knee replacement in December 2014 with subsequent prosthesis infection and was replaced again in December 2016 with antibiotic spacer placement for 8 weeks and revision in April 27, 2017 all of her procedure was done in [facility] orthopedic surgeon Dr. Cain, osteoarthritis of right knee with no previous replacement up to date who presented to ED with chief complaint of altered mental status. Most of history was obtained from patient's hospital because of altered mental status. 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 She took 1 oxycodone 15 mg and went to bed and when he came from work around 5:30 PM patient was still sleeping and reported not feeling well. He denied any previous history of pain medication overdose, patient follow with pain management clinic in [place] and last visit was 1 week ago, oxycodone increased from 15 to 20 however patient did not feel any difference and was prescribed again oxycodone 15 one tab every 4 as needed for severe pain. He denied any history of chest pain, shortness of breath, previous altered mental status, abdominal pain, nausea or vomiting, diarrhea or constipation. Patient suffered from sore throat early this month and was prescribed amoxicillin for 7 days last dose was 08/31 with no subsequent fever, chills, recurrent sore throat, cough or shortness of breath. No history of falls, patient uses a walker and sometimes 2 cane to ambulate inside the house. On admission vital signs temperature 102.8, pulse 108, blood pressure 170/82, respiratory 24 with saturation 93% on 4 L nasal cannula Labs pertinent to leukocytosis with left shift and bandemia 11, H&H 9.9/30.5 with baseline Hemoccult been 10-11,, pH 7.44, PCO2 34, PO2 70, UA negative CT head and cervical spine negative for any acute changes. Chest x-ray unremarkable however by reviewing the actual image patient has opacity in the right lower lung lobe which might represent aspiration Problem list #Altered mental status due to opioids overdose according to ED staff mentation improved after Narcan versus infectious #Sepsis with unclear infectious etiology respiratory aspiration pneumonia versus septic arthritis of left knee. FINGERER infection is in differential however patient does not have any neurological deficit or neck stiffness #Opioid dependence #Obstructive sleep apnea noncompliant with CPAP #Acute hypoxic respiratory failure Plan -Admit to general med floor -Obtain CT SPARK PLUG ASSEMBLER -We will continue oxycodone 15 one tab every 6 hours for severe pain and hold long-acting morphine 120 mg daily to be restarted once patient mentation improved -We will cover with Unasyn for septic arthritis versus aspiration pneumonia -Blood culture, urine culture -Bilateral knee x-ray -Orthopedic surgery consultation -Obtain records from [facility] -ID consultation -Keep n.p.o. -IVF -Obtain ESR and C-reactive protein -Continue other home medication -Continue sitter for safety precaution -Fall and aspiration precaution CODE STATUS full DVT prophylaxis heparin subcutaneous
--- NOTE | 2017-09-09 01:56 | Admission Certification ---
Admission Certification Certification Statement - As attending physician, I certify that at the time of - admission, based on clinical presentation, severity of - symptoms, need for further diagnostic testing and - therapeutic interventions, and risk of adverse outcomes - without in-hospital treatment, in my clinical assessment, - this patient requires an acute hospital stay for a minimum - of two nights or longer. I have also considered psychsocial - factors such as support system, advanced age, financial - issues, cognitive issues, and failed out-patient treatments, - past re-admission history, safety of patient, and lack of - compliance as applicable. Specific rationale supporting this admission is: Altered mental status, narcotic overdose, sepsis with unclear source of infection.
[2017-09-09 03:19] VITALS: BP 129/70
--- NOTE | 2017-09-09 03:38 | RADIOLOGY REPORT ---
EXAMINATION: XR KNEE, RIGHT XR KNEE, LEFT CLINICAL INFORMATION: Fever, history of knee replacements COMPARISON: Right knee 07/02/2012 TECHNIQUE: Four views of each knee. FINDINGS: RIGHT KNEE: Assessment is limited by patient body habitus. Osseous alignment appears anatomic. There is severe joint space narrowing of the medial compartment with near complete loss of the joint space and associated osteophytosis. There is also osteophytosis along the lateral compartment with mild joint space narrowing. No definite fracture. Assessment for effusion cannot be adequately made due to suboptimal positioning in the lateral projection. LEFT KNEE: Total knee arthroplasty hardware appears intact and in anatomic alignment. No acute fracture is seen. There are a few small calcific densities surrounding the knee which are favored to be chronic. Limited assessment for effusion due to patient body habitus. IMPRESSION: 1. Right knee: Suboptimal assessment, with no definite fracture. Degenerative changes, most severe in the medial compartment. 2. Left knee: Total knee arthroplasty hardware appears in anatomic alignment. No definite acute findings.
[2017-09-09 06:55] VITALS: BP 100/58
[2017-09-09 09:00] VITALS: BP 105/65
[2017-09-09 09:07] LABS: ABSOLUTE BASOPHIL COUNT 0 /CUMM (0.0-0.2); ABSOLUTE EOSINOPHIL COUNT 0 /CUMM (0.0-0.7); ABSOLUTE GRANULOCYTE CT 13.3 /CUMM (1.4-6.5); ABSOLUTE LYMPH COUNT 1.7 /CUMM (1.2-3.4); ABSOLUTE MONOCYTE COUNT 0.6 /CUMM (0.10-0.60); BASOPHIL % 0.2 % (0.0-2.0); EOSINOPHIL % 0 % (0-5); GRANULOCYTE % 85.5 % (42.2-75.2); HEMATOCRIT 27.1 % (37-47); MEAN CORPUSCULAR HGB 26.3 PG (27.0-31.0); MEAN CORPUSCULAR HGB CONC 32.7 G/DL (33.0-37.0); MEAN CORPUSCULAR VOLUME 80.3 FL (81.0-99.0); MEAN PLATELET VOLUME 7.8 FL (7.4-10.4); PLATELET COUNT 249 /CUMM (130-400); RBC DISTRIBUTION WIDTH 16.7 % (11.5-14.5); RED BLOOD CELL CT 3.38 /CUMM (4.20-5.40); WHITE BLOOD CELL COUNT 15.6 /CUMM (4.8-10.8)
--- NOTE | 2017-09-09 12:04 | Cons- Infect Disease ---
General Information and HPI Consulting Request Date of Consult: 09/09/17 Requested By: Nathanael CRAVEN,Issac Reason for Consult: Rule out sepsis Source of Information: patient, old records Exam Limitations: clinical condition History of Present Illness: This is a 57-year-old woman with a history of hypertension, obstructive sleep apnea, discoid lupus, fibromyalgia and rheumatoid arthritis, status post left knee replacement 3 years prior to admission, requiring removal because of infection 8 months prior to admission and replacement 4 months prior to admission at [facility], with further details not available presently, but with chronic pain, requiring Oxycodone, and intermittent drainage from the inferior aspect of her incision, treated with Amoxicillin 2 weeks prior to admission because of a sore throat, admitted on September 08 after she was found to be confused and lethargic at home. On admission she was moaning and not answering questions appropriately. She was febrile to 102.8. Laboratory data revealed a white blood cell count of 19,000, with 76 segs and 11 bands, BUN/ creatinine 18 and 0.5, INR 1.27, ABG 7.44/34/70 on 4 L/m. Urinalysis rare RBCs. Chest x-ray was negative. CT of the head and cervical spine were negative for any acute process. X-rays of the left knee revealed the total knee arthroplasty hardware in anatomic alignment, with assessment for effusion limited due to her body habitus. X-ray of the right knee revealed degenerative changes. She was given Narcan with some improvement in her mental status. She was given Vancomycin and Zosyn in the emergency room and was then changed to Unasyn. She appears to have defervesced overnight and is more responsive today. Though lethargic she was able to be awakened and to provide a reasonable history. At present she does report pain in both knees. She also notes dysuria. Allergies/Medications Allergies: Coded Allergies: NO KNOWN ALLERGIES (UNKNOWN 10/22/16) Home Med List: Duloxetine HCl 30 MG CAPSULE.DR 30 MG PO QHS NERVE PAIN (Reported) Hydroxychloroquine Sulfate 200 MG TABLET 1 TAB PO DAILY LUPUS (Reported) Lisinopril 40 MG TABLET 1 TAB PO DAILY BP (Reported) Morphine Sulfate (Morphine Sulfate ER) 120 MG CPMP.24HR 1 CAP PO QAM PAIN ( Reported) Oxycodone HCl 15 MG TABLET 1 TAB PO Q4H PAIN (Reported) Triamcinolone Acetonide 0.1 % CREAM..G. 1 CAROL ANN TOP PRN SKIN (Reported) Zaleplon 5 MG CAPSULE 1-2 CAP PO QHS UNKNOWN (Reported) Past History Travel History Traveled to [place] past 21 day No Medical History Blood Transfusion Hx: No Neurological: NONE EENT: DEVIATED SEPTUM Cardiovascular: hypertension Respiratory: NONE Gastrointestinal: NONE Hepatic: NONE Renal: NONE Musculoskeletal: fibromyalgia, rheumatoid arthritis, LUPUS Psychiatric: NONE Endocrine: NONE Other Medical Hx: morbid obesity History of MRSA: No History of VRE: No History of CDIFF: No Isolation History: Standard Tetanus Vaccine: 10/22/16 Surgical History Surgical History: knee replacement (left) Family History Relations & Conditions If Any: FATHER (lung cancer). grandmother (HTN, DM). Psychosocial History Where Do You Live? Home Services at Home: Home Health Aide, Physical Therapy Smoking Status: Former Smoker Review of Systems Review of Systems All Other Systems: Reviewed and Negative Exam & Diagnostic Data Last 24 Hrs of Vital Signs/I&O Vital Signs Date Time Temp Pulse Resp B/P B/P Pulse O2 O2 Flow FiO2 Mean Ox Delivery Rate 09/09 1007 Nasal 2.0L Cannula 09/09 0900 105/65 09/09 0655 98.1 87 21 100/58 91 09/09 0400 94 Nasal 2.0L Cannula 09/09 0319 97.2 89 22 129/70 95 09/09 0154 99.2 80 18 152/80 95 Room Air 09/08 2327 99.0 99 22 158/74 95 Room Air 09/08 2030 96 Nasal 4.0L Cannula 09/09 2027 101.2 107 24 137/59 92 Nasal 4.0L Cannula 09/08 1809 102.8 108 24 170/82 93 Nasal Cannula Intake & Output 09/09 1600 09/09 0800 09/09 0000 Intake Total 600 0 Output Total 850 Balance -250 0 Intake, IV 600 Intake, Oral 0 Output, Urine 850 Patient 350 lb Weight Weight Reported by Patient Measurement Method Physical Exam Other Physical Findings: MAXIMUM TEMPERATURE 102.8. She is lethargic but arousable in no acute distress. Skin reveals no rash. HEENT lesion on her hard palate. Neck is supple with no adenopathy. Lungs are clear. Heart regular rhythm with no murmur. Abdomen is obese, soft, nontender with positive bowel sounds. Back questionable right CVA tenderness. Extremities chronic changes to both lower extremities, right greater than left, with mild erythema above the right ankle and more extensive erythema on the medial aspect of the left leg towards the left knee, mildly warm to touch with no tenderness; left knee incision clean, with no erythema or drainage, with good range of motion. Neuro is without focality. Palacio catheter is in place. Last 24 Hours of Lab Results: Laboratory Tests 09/09 09/08 09/08 0745 2252 2124 Chemistry Sodium (137 - 145 mmol/L) 139 Potassium (3.5 - 5.1 mmol/L) 3.6 Chloride (98 - 107 mmol/L) 104 Carbon Dioxide (22 - 30 mmol/L) 29 Anion Gap (5 - 16) 5 BUN (7 - 17 mg/dL) 20 H Creatinine (0.5 - 1.0 mg/dL) 0.6 Estimated GFR (>60 ml/min) > 60 BUN/Creatinine Ratio (7 - 25 %) 33.3 H Lactic Acid Cancelled Hematology CBC w Diff Pending WBC Pending RBC Pending Hgb Pending Hct Pending MCV Pending MCH Pending MCHC Pending RDW Pending Plt Count Pending MPV Pending Toxicology Urine Opiates Screen (>2000 NG/ML) > 4000.00 H Methadone Screen (>300 NG/ML) < 40 Barbiturate Screen (>200 NG/ML) < 60 Ur Phencyclidine Scrn (>25 NG/ML) < 6.00 Amphetamines Screen (>1000 NG/ML) < 100 U Benzodiazepines Scrn (>200 NG/ML) < 85 Urine Cocaine Screen (>300 NG/ML) < 50 Urine Cannabis Screen (>50 NG/ML) < 5.00 Urines Urine Color (YEL,AMB,STR) YEL Urine Clarity (CLEAR) CLEAR Urine pH (5.0 - 8.0) 6.0 Ur Specific [place] (1.001 - 1.035) 1.010 Urine Protein (NEG,<30 MG/DL) NEG Urine Ketones (NEG) NEG Urine Nitrite (NEG) NEG Urine Bilirubin (NEG) NEG Urine Urobilinogen (0.1 - 1.0 EU/dl) 0.2 Ur Leukocyte Esterase (NEG) NEG Ur Microscopic SEDIMENT EXAMINED Urine RBC (0 - 5 /HPF) RARE Ur Epithelial Cells (NONE,FEW) RARE Urine Bacteria (NEG/NONE) MOD H Urine Hemoglobin (NEG) TRACE-INTACT Urine Glucose (N MG/DL) NEG 09/08 185 Blood Gas pH (7.35 - 7.45 PH) 7.44 pCO2 (35 - 45 TORR) 34 L pO2 (80 - 100 TORR) 70 L HCO3 (21 - 28 MEQ/L) 23 ABG O2 Sat (Measured) (>96.0 %) 92.0 L P-50 (Temp Corrected) Y Carboxyhemoglobin (1.5 - 5.0 %) 0.6 L O2 Concentration % 4L Temperature (97.0 - 100.0 FARH) 101.2 H O2 Delivery Method NC Chemistry Sodium (137 - 145 mmol/L) 135 L Potassium (3.5 - 5.1 mmol/L) 3.6 Chloride (98 - 107 mmol/L) 101 Carbon Dioxide (22 - 30 mmol/L) 24 Anion Gap (5 - 16) 9 BUN (7 - 17 mg/dL) 18 H Creatinine (0.5 - 1.0 mg/dL) 0.5 Estimated GFR (>60 ml/min) > 60 BUN/Creatinine Ratio (7 - 25 %) 36.0 H Glucose (65 - 99 mg/dL) 137 H Lactic Acid (0.7 - 2.1 mmol/L) 1.4 Calcium (8.4 - 10.2 mg/dL) 9.9 Magnesium (1.6 - 2.3 mg/dL) 1.6 Iron (37 - 170 ug/dL) 25 L TIBC (265 - 497 ug/dL) 326 Ferritin (11.1 - 264 ng/mL) 67.3 Total Bilirubin (0.2 - 1.3 mg/dL) 0.6 AST (14 - 36 U/L) 26 ALT (9 - 52 U/L) 21 Alkaline Phosphatase (<127 U/L) 84 Lactate Dehydrogenase (313 - 618 U/L) 659 H Troponin I (< 0.11 ng/ml) 0.03 C-Reactive Prot, Quant (<1.0 mg/dL) 6.4 H Total Protein (6.3 - 8.2 g/dL) 8.5 H Albumin (3.5 - 5.0 g/dL) 3.6 Globulin (1.9 - 4.2 gm/dL) 4.9 H Albumin/Globulin Ratio (1.1 - 2.2 %) 0.7 L Vitamin B12 (239 - 931 pg/mL) 262 Folate (2.76 - 20.0 ng/mL) 19.4 TSH (0.270 - 4.200 uIU/mL) 0.392 Miscellaneous Phlebotomy Draw Site RIGHT RADIAL 09/08 1827 Coagulation PT (9.4 - 12.5 SEC) 13.9 H INR (0.90 - 1.19) 1.27 H Hematology CBC w Diff MAN DIFF ORDERED WBC (4.8 - 10.8 /CUMM) 19.0 H RBC (4.20 - 5.40 /CUMM) 3.84 L Hgb (12.0 - 16.0 G/DL) 9.9 L Hct (37 - 47 %) 30.5 L MCV (81.0 - 99.0 FL) 79.4 L MCH (27.0 - 31.0 PG) 25.8 L MCHC (33.0 - 37.0 G/DL) 32.5 L RDW (11.5 - 14.5 %) 16.7 H Plt Count (130 - 400 /CUMM) 335 MPV (7.4 - 10.4 FL) 8.1 Gran % (42.2 - 75.2 %) 92.4 H Lymphocytes % (20.5 - 51.1 %) 3.6 L Monocytes % (1.7 - 9.3 %) 3.9 Eosinophils % (0 - 5 %) 0 Basophils % (0.0 - 2.0 %) 0.1 Absolute Granulocytes (1.4 - 6.5 /CUMM) 17.6 H Segmented Neutrophils (42.2 - 75.2 %) 76 H Band Neutrophils (0.0 - 5.0 %) 11 H Absolute Lymphocytes (1.2 - 3.4 /CUMM) 0.7 L Lymphocytes (20.5 - 51.1 %) 7 L Monocytes (1.7 - 9.3 %) 5 Absolute Monocytes (0.10 - 0.60 /CUMM) 0.7 H Absolute Eosinophils (0.0 - 0.7 /CUMM) 0 Absolute Basophils (0.0 - 0.2 /CUMM) 0 Metamyelocytes (0.0 - 1.0 %) 1 Platelet Estimate (ADEQUATE) ADEQUATE Polychromasia 1+ Hypochromic-Microcytic 2+ Anisocytosis 1+ Microcytic Cells 1+ ESR Westergren (0 - 20 MM) 40 H Retic Count (0.5 - 2.0 %) 2.18 H Last 24 Hours of Ibrahima Results: Blood cultures 2 September 08 negative Quick strep September 08 negative, with culture pending Rapid flu swab September 09 negative Diagnostic Data Recent Imaging Findings: Chest x-ray was negative. CT of the head and cervical spine were negative for any acute process. X-ray of the left knee revealed the total knee arthroplasty hardware in anatomic alignment, with assessment for effusion limited due to her body habitus. X-ray of the right knee revealed degenerative changes. Assessment/Plan Assessment/Plan Impression: This is a 57-year-old woman with a history of discoid lupus, obstructive sleep apnea, rheumatoid arthritis, status post left knee replacement 3 years prior to admission, requiring removal and replacement 4 months prior to admission at [facility], with chronic pain and intermittent drainage from the inferior aspect of her incision, admitted on September 08 after she was found to be confused and lethargic at home, found on admission to be minimally responsive, febrile with a leukocytosis. Her clinical picture is consistent with sepsis. The most likely source appears to be a cellulitis of the left lower extremity, with erythema and warmth, though she has minimal tenderness. It does not appear that this is affecting her left knee prosthesis but, given the history of a recent infection and intermittent drainage from the inferior aspect of her incision, this may need to be considered. Her right lower extremity appears to have mostly chronic changes, with minimal erythema and tenderness. She does report dysuria and mild right flank tenderness, but her urinalysis is unremarkable. She has no other obvious focus of infection at this time. Suggestion: 1. Add a urine culture to her urinalysis (already called) 2. Obtain details regarding her recent left knee surgeries from her orthopedist at [facility] 3. Elevation of the left leg 4. Continue Unasyn Consult Acknowledgment - Thank you for your consult request.
[2017-09-09 13:59] VITALS: BP 139/76
--- NOTE | 2017-09-09 16:23 | PN- Att Addend ---
Attending Addendum Attending Brief Note Ms. Rodriguez is a 57 year old female with PMH of deviated septum, HTN, fibromyalgia, RA, SLE, obesity, LUIS, and left knee replacement (revision in 2016) who presents with AMS. Patient was found to be lethargic on arrival, improved with Narcan. On examination today patient's altered mental status is resolved. Denies any specific complaints except pain in the left knee. Swelling and bilateral leg erythema and lower extremities has been chronically present, erythema slightly worse on the left side. 1. Altered mental status with leucocytosis and fever 2. Bilateral lower extremity erythema and swelling with worsening left knee pain -s/p recent revision 3. Chronic pain on opiate medications Plan 1. Resolved. Will start enteral nutrition. Will obtain records from [facility] regarding knee surgery that was done recently 2. Continue with IV Unasyn for now until we get final cultures 3. Urine cultures will be obtained. Appreciate infectious diseases recommendations 4. Pending orthopedic recommendations
[2017-09-09 21:53] VITALS: BP 104/66
[2017-09-10 06:30] VITALS: BP 146/80
--- NOTE | 2017-09-10 07:27 | PN- Housestaff ---
Rowan CRAVEN,Estela 09/10/17 0727: Subjective Follow-up For: Left leg cellulitis Complaints: b/l knee pain Subjective: Patient seen and examined at bedside. No overnight events. She is alert, awake , oriented 3. Complaints of bilateral knee pain of 6 x 10. She denies chest pain, chest pressure, nausea, vomiting, abdominal pain. Patient is able to move all her limbs. Review of Systems Constitutional: Reports: no symptoms. Cardiovascular: Reports: no symptoms. Respiratory: Reports: no symptoms. Gastrointestinal: Reports: no symptoms. Genitourinary: Reports: no symptoms. Musculoskeletal: Reports: no symptoms. Objective Last 24 Hrs of Vital Signs/I&O Vital Signs Date Time Temp Pulse Resp B/P B/P Pulse O2 O2 Flow FiO2 Mean Ox Delivery Rate 09/10 0630 98.1 85 22 146/80 94 Nasal 2.0L Cannula 09/10 0000 95 Nasal 2.0L Cannula 09/09 2153 97.8 92 20 104/66 95 09/09 1359 98.0 86 20 139/76 98 Nasal 2.0L Cannula Intake & Output 09/10 1600 09/10 0800 09/10 0000 Intake Total 1000 520 Output Total 600 2150 Balance 400 -1630 Intake, IV 800 400 Intake, Oral 200 120 Number 0 0 Bowel Movements Output, Urine 600 2150 Physical Exam General Appearance: Alert, Oriented X3, Cooperative, No Acute Distress Skin: No Rashes, No Breakdown HEENT: Atraumatic, PERRLA Cardiovascular: Regular Rate, Normal S1, Normal S2, No Murmurs Lungs: Clear to Auscultation, Normal Air Movement Abdomen: Normal Bowel Sounds, Soft, No Tenderness, No Hepatospenomegaly Neurological: Normal Speech, Strength at 5/5 X4 Ext, Normal Tone, Sensation Intact, Cranial Nerves 3-12 NL Extremities: left leg eryhema,swelling,rt leg chronic venous changs Current Medications: Current Medications Sig/Deuce Start time Last Medication Dose Route Stop Time Status Admin Acetaminophen 1,000 MG Q12 PRN 09/09 1745 AC 09/10 N/A 1 UNIT IV 0000 Acetaminophen 1,000 MG Q8 09/09 0600 DC 09/09 N/A 1 UNIT IV 1415 Ampicillin Sodium/ 3,000 MG Q6H 09/09 0300 AC 09/10 Sulbactam Sodium IV 0848 Sodium Chloride 100 ML Benzocaine/Menthol 1 DEMETRIA ONCE ONE 09/09 2315 DC 09/10 PO 09/09 2316 0122 Bisacodyl 5 MG ONE ONE 09/10 0530 CAN PO 09/10 0531 Calcium Carbonate 500 MG ONCE ONE 09/10 0430 DC 09/10 PO 09/10 0431 0441 Dextrose/Sodium 1,000 ML Q10H 09/09 0745 DC 09/10 Chloride IV 0121 Docusate Sodium 100 MG BID 09/10 1000 AC 09/10 PO 0932 Duloxetine HCl 60 MG QPM 09/09 2200 AC 09/09 PO 2249 Duloxetine HCl 30 MG QAM 09/09 1000 AC 09/10 PO 0850 Heparin Sodium 5,000 UNIT Q8 09/09 0600 AC 09/10 (Porcine) SC 0515 Hydroxychloroquine 200 MG DAILY 09/10 1045 AC Sulfate PO Melatonin 3 MG ONCE ONE 09/10 0215 DC 09/10 PO 09/10 0216 0253 Nystatin 1 CAROL ANN BID 09/10 1000 AC 09/10 TOP 0932 Oxycodone HCl 15 MG Q4 PRN 09/09 0919 AC 09/10 PO 0933 Polyethylene Glycol 17 GM ONCE ONE 09/10 0530 DC PO 09/10 0531 Last 24 Hrs of Lab/Ibrahima Results Last 24 Hrs of Labs/Mics: Laboratory Tests 09/10/17 0651: Anion Gap 7, Estimated GFR > 60, BUN/Creatinine Ratio 30.0 H, CBC w Diff NO MAN DIFF REQ, RBC 3.37 L, MCV 81.4, MCH 26.2 L, MCHC 32.2 L, RDW 16.6 H, MPV 8.0 , Gran % 75.6 H, Lymphocytes % 17.1 L, Monocytes % 6.4, Eosinophils % 0.5, Basophils % 0.4, Absolute Granulocytes 7.7 H, Absolute Lymphocytes 1.7, Absolute Monocytes 0.6, Absolute Eosinophils 0.1, Absolute Basophils 0 09/09/17 1352: Urinalysis LIGHT H, Urine Color YEL, Urine Clarity HAZY H, Urine pH 6.0, Ur Specific [place] 1.025, Urine Protein TRACE H, Urine Ketones NEG, Urine Nitrite NEG, Urine Bilirubin NEG, Urine Urobilinogen 0.2, Ur Leukocyte Esterase NEG, Ur Microscopic SEDIMENT EXAMINED, Urine RBC >75 H, Urine WBC 3-5 H, Ur Epithelial Cells MOD H, Urine Bacteria FEW H, Urine Mucus MANY H, Urine Hemoglobin MOD H, Urine Glucose NEG Microbiology 09/09 1352 URINE ROUT: Urine Culture - RES Assessment/Plan Assessment: Ms. Rodriguez is a 57 year old female with PMH of deviated septum, HTN, fibromyalgia, RA, SLE, obesity, LUIS, and left knee replacement (revision in 2016) who presents with AMS. She will be admitted to general medicine and treated for the following problems: 1. Altered mental status-improving 2. SIRS-resolved 3. Microcytic anemia 4. Leukocytosis with bandemia-resolving #AMS/SIRS/Leukocytosis: Patient presented with altered mental status, 4/4 SIRS criteria, and history of knee replacement (with recent revision). Patient has bilateral chronic venous changes in both lower extremities. Left leg appears more warm and red with swelling. Patient was seen by infectious his doctor who considers the possible source of sepsis to be left leg cellulitis. Though left septic knee needs to be ruled out. Ortho consult placed. ID follow-up appreciated. Patient's home dose of hydroxychloroquine 200 mg daily restarted. Continue IV Unasyn. We will obtain her orthopedic records from [facility]. Patient is on chronic opioids and her pain is currently controlled. We will continue current management. If the patient complains of pain please reassess the patient mental status. #Chronic medical problems: Continue home meds. DVT ppx with enoxaparin Full code Problem List: 1. Altered mental status 2. Left knee pain 3. Leukocytosis 4. Hypertension Pain Ratin Pain Location: none Pain Goal: Remain pain free Pain Plan: tylenol Tomorrow's Labs & Rationales: cbc,bep Archie Barclay MD 09/10/17 1354: Attending MD Review Statement Attending Statement Attending MD Statement: examined this patient, discuss w/resident/PA/CLERICAL INVESTIGATOR, agreed w/resident/PA/CLERICAL INVESTIGATOR, discussed with nursing Attending Assessment/Plan: Ms. Rodriguez is a 57 year old female with PMH of deviated septum, HTN, fibromyalgia, RA, SLE, obesity, LUIS, and left knee replacement (revision in 2016) who presents with AMS. Patient was found to be lethargic on arrival, improved with Narcan. On examination today patient's altered mental status is resolved. Denies any specific complaints except pain in the left knee. Swelling and bilateral leg erythema and lower extremities has been chronically present, erythema slightly worse on the left side. 1. Altered mental status with leucocytosis and fever - resolved 2. Bilateral lower extremity erythema and swelling with worsening left knee pain -s/p recent revision 3. Chronic pain on opiate medications 4. Leukocytosis - resolving. No more episodes of fever. Plan 1. COntinue with diet. Stop IVF. Will obtain records from [facility] regarding knee surgery that was done recently 2. Continue with IV Unasyn for now until we get final cultures 3. Urine cultures will be obtained. Appreciate infectious diseases recommendations 4. Pending orthopedic recommendations Patient was up from the bed and tried to walk around, due to risk of fall and patient was also non-cooperative. Sitter at bedside since last evening. Discussed with patient in detail. Sitter can be discontinued after evaluation later in the day.
[2017-09-10 08:54] LABS: ABSOLUTE BASOPHIL COUNT 0 /CUMM (0.0-0.2); ABSOLUTE EOSINOPHIL COUNT 0.1 /CUMM (0.0-0.7); ABSOLUTE GRANULOCYTE CT 7.7 /CUMM (1.4-6.5); ABSOLUTE LYMPH COUNT 1.7 /CUMM (1.2-3.4); ABSOLUTE MONOCYTE COUNT 0.6 /CUMM (0.10-0.60); BASOPHIL % 0.4 % (0.0-2.0); EOSINOPHIL % 0.5 % (0-5); GRANULOCYTE % 75.6 % (42.2-75.2); HEMATOCRIT 27.5 % (37-47); MEAN CORPUSCULAR HGB 26.2 PG (27.0-31.0); MEAN CORPUSCULAR HGB CONC 32.2 G/DL (33.0-37.0); MEAN CORPUSCULAR VOLUME 81.4 FL (81.0-99.0); PLATELET COUNT 241 /CUMM (130-400); RBC DISTRIBUTION WIDTH 16.6 % (11.5-14.5); RED BLOOD CELL CT 3.37 /CUMM (4.20-5.40); WHITE BLOOD CELL COUNT 10.2 /CUMM (4.8-10.8)
[2017-09-10 14:50] VITALS: BP 160/83
[2017-09-10 23:21] VITALS: BP 153/87
[2017-09-11 06:19] VITALS: BP 175/111
[2017-09-11 07:01] VITALS: BP 162/92
--- NOTE | 2017-09-11 07:25 | PN- Housestaff ---
Rowan CRAVEN,Estela 09/11/17 0725: Subjective Follow-up For: Left leg cellulitis Complaints: no complaints Subjective: Patient seen and examined at bedside. No overnight events. No complaints. Patient is eager to go home today. Patient denies chest pain, chest pressure, nausea, vomiting, abdominal pain. Review of Systems Constitutional: Reports: see HPI. Objective Last 24 Hrs of Vital Signs/I&O Vital Signs Date Time Temp Pulse Resp B/P B/P Pulse O2 O2 Flow FiO2 Mean Ox Delivery Rate 09/11 1432 98.5 98 18 156/92 93 09/11 1045 86 152/80 Physical Exam General Appearance: Alert, Oriented X3, Cooperative, No Acute Distress Cardiovascular: Regular Rate, Normal S1, Normal S2, No Murmurs Lungs: Clear to Auscultation Abdomen: Normal Bowel Sounds, Soft, No Tenderness, No Hepatospenomegaly Neurological: Normal Speech, Strength at 5/5 X4 Ext, Normal Tone, Sensation Intact Extremities: No Cyanosis, No Edema, Normal Pulses Current Medications: Current Medications Sig/Deuce Start time Last Medication Dose Route Stop Time Status Admin Acetaminophen 1,000 MG Q12 PRN 09/09 1745 DCD 09/11 N/A 1 UNIT IV 0052 Amoxicillin/ 875 MG TID 09/11 1600 DCD Clavulanate Potassium PO Ampicillin Sodium/ 3,000 MG Q6H 09/09 0300 DC 09/11 Sulbactam Sodium IV 0906 Sodium Chloride 100 ML Docusate Sodium 100 MG BID 09/10 1000 DCD 09/11 PO 0906 Duloxetine HCl 60 MG QPM 09/09 2200 DCD 09/10 PO 2128 Duloxetine HCl 30 MG QAM 09/09 1000 DCD 09/11 PO 0906 Heparin Sodium 5,000 UNIT Q8 09/09 0600 DCD 09/11 (Porcine) SC 1343 Hydroxychloroquine 200 MG DAILY 09/10 1045 DCD 09/11 Sulfate PO 0906 Lisinopril 40 MG DAILY 09/11 1000 DCD 09/11 PO 1045 Nystatin 1 CAROL ANN BID 09/10 1000 DCD 09/11 TOP 0907 Oxycodone HCl 15 MG Q4 PRN 09/09 0919 DCD 09/11 PO 1305 Last 24 Hrs of Lab/Ibrahima Results Last 24 Hrs of Labs/Mics: Laboratory Tests 09/11/17 0858: CBC w Diff NO MAN DIFF REQ, RBC 3.47 L, MCV 80.4 L, MCH 26.2 L, MCHC 32.6 L, RDW 17.5 H, MPV 8.1, Gran % 51.0, Lymphocytes % 39.1, Monocytes % 7.3, Eosinophils % 1.9, Basophils % 0.7, Absolute Granulocytes 2.9, Absolute Lymphocytes 2.2, Absolute Monocytes 0.4, Absolute Eosinophils 0.1, Absolute Basophils 0 Assessment/Plan Assessment: Ms. Rodriguez is a 57 year old female with PMH of deviated septum, HTN, fibromyalgia, RA, SLE, obesity, LUIS, and left knee replacement (revision in 2016) who presents with AMS. She will be admitted to general medicine and treated for the following problems: 1. Altered mental status-improving 2. SIRS-resolved 3. Microcytic anemia 4. Leukocytosis with bandemia-resolving #AMS/SIRS/Leukocytosis: Patient presented with altered mental status, sepsis, and history of knee replacement (with recent revision). Patient has bilateral chronic venous changes in both lower extremities. Left leg appears more warm and red with swelling. Patient was seen by infectious his doctor who considers the possible source of sepsis to be left leg cellulitis. alThough left septic knee needs to be ruled out. Ortho consult placed. ID follow-up appreciated. Patient's home dose of hydroxychloroquine 200 mg daily restarted. Continue IV Unasyn and changed to by mouth Augmentin. We will obtain her orthopedic records from [facility]. Patient is on chronic opioids and her pain is currently controlled. We will continue current management. If the patient complains of pain please reassess the patient mental status. #Chronic medical problems: Continue home meds. DVT ppx with enoxaparin Full code Update We will send her home with by mouth Augmentin for 4 more days and follow up with her orthopedic doctor as outpatient in 1-2 weeks. Problem List: 1. Hypertension 2. Anxiety 3. Cellulitis of left leg Pain Ratin Pain Location: none Pain Goal: Remain pain free Pain Plan: Tylenol Tomorrow's Labs & Rationales: none Ami Mendez 09/11/17 1214: Attending MD Review Statement Attending Statement Attending MD Statement: examined this patient, discuss w/resident/PA/AGRICULTURAL ECONOMICS TEACHER, agreed w/resident/PA/AGRICULTURAL ECONOMICS TEACHER, discussed with family, reviewed EMR data (avail), discussed with nursing, discussed with case mgmt, reviewed images, amended to note Attending Assessment/Plan: 57 o/f with admiiting impression of cellulitis which has considerably improved on iv antibitocis. Patient old records reviewed. Patient needs to follow up with her orthopedician at [facility] and PCP at discharge on PO abx.
--- NOTE | 2017-09-11 10:08 | Patient Discharge Instructions ---
Discharge Instructions General Discharge Information You were seen/treated for: Left leg cellulitis Watch for these problems: Worsening leg redness, pain or fevers. Special Instructions: 1. Follow up with your primary care provider within 1 week of discharge. 2. Follow up with your orthopedic surgeon within 1 week of discharge. Diet Continue normal diet: Yes Recommended Diet: Regular Activity Full Activity/No Limits: No Activity Self Limited: Yes Acute Coronary Syndrome Inclusion Criteria At DC or during hospital stay patient has or had the following: ACS DIAGNOSIS No Discharge Core Measures Meds if any: Prescribed or Continued at Discharge Meds if any: NOT Prescribed or Continued at Discharge Congestive Heart Failure Inclusion Criteria At DC or during hospital stay patient has or had the following: CHF DIAGNOSIS No Discharge Core Measures Meds if any: Prescribed or Continued at Discharge Meds if any: NOT Prescribed or Continued at Discharge Cerebrovascular accident Inclusion Criteria At DC or during hospital stay patient has or had the following: CVA/TIA Diagnosis No Discharge Core Measures Meds if any: Prescribed or Continued at Discharge Meds if any: NOT Prescribed or Continued at Discharge Venous thromboembolism Inclusion Criteria VTE Diagnosis No VTE Type NONE VTE Confirmed by (Test) NONE Discharge Core Measures - Per Current guidelines, there needs to be overlap - treatment for the first 5 days of Warfarin therapy. - If discharged on Warfarin prior to 5 days of - overlap therapy, the patient will need to be - assessed for post discharge needs including - *Post discharge parental anticoagulation - *Warfarin and/or parental anticoagulation education - *Follow up date to check INR post discharge At least 5 days overlap therapy as Inpatient No Meds if any: Prescribed or Continued at Discharge Note: Overlap Therapy is Warfarin and Anticoagulant Meds if any: NOT Prescribed or Continued at Discharge
[2017-09-11 11:16] LABS: ABSOLUTE BASOPHIL COUNT 0 /CUMM (0.0-0.2); ABSOLUTE EOSINOPHIL COUNT 0.1 /CUMM (0.0-0.7); ABSOLUTE GRANULOCYTE CT 2.9 /CUMM (1.4-6.5); ABSOLUTE LYMPH COUNT 2.2 /CUMM (1.2-3.4); ABSOLUTE MONOCYTE COUNT 0.4 /CUMM (0.10-0.60); BASOPHIL % 0.7 % (0.0-2.0); EOSINOPHIL % 1.9 % (0-5); HEMATOCRIT 27.9 % (37-47); MEAN CORPUSCULAR HGB 26.2 PG (27.0-31.0); MEAN CORPUSCULAR HGB CONC 32.6 G/DL (33.0-37.0); MEAN CORPUSCULAR VOLUME 80.4 FL (81.0-99.0); MEAN PLATELET VOLUME 8.1 FL (7.4-10.4); PLATELET COUNT 267 /CUMM (130-400); RBC DISTRIBUTION WIDTH 17.5 % (11.5-14.5); RED BLOOD CELL CT 3.47 /CUMM (4.20-5.40); WHITE BLOOD CELL COUNT 5.6 /CUMM (4.8-10.8)
--- NOTE | 2017-09-11 14:09 | Discharge Summary ---
Visit Information Visit Dates Admission Date: 09/09/17 Discharge Date: 09/11/17 Hospital Course Course Attending Physician: Ami Mendez MD Primary Care Physician: Jun Green MD Hospital Course: Ms. Rodriguez is a 57 year old female with PMH of deviated septum, HTN, fibromyalgia, RA, SLE, obesity, LUIS, and bilateral knee replacements who presents with AMS. Patient is intermittently asleep and then woke up writhing in pain for a few seconds. She complained of nonspecific pain in her knees and feet but is unable to give further details. Per , patient was in usual state of health but did not sleep well the night prior. She then slept most the day, and when the came home around 5:30pm, he found her lethargic and complaining of "something" being wrong. He then brought her in for further evaluation. He does mention she had a sore throat recently and received a course of amoxicillin. Hospital course Patient admitted for altered mental status, sepsis-resolved, left leg cellulitis Patient was treated with IV antibiotics for left leg cellulitis. Patient altered mental status found to be secondary due to chronic opioid use. During this admission her home dose morphine was held. Patient mentation improved well. Left knee replacement was done few years ago and recently had revision of her left knee. We will give her referral to our orthopedic doctors at [facility] for further follow-up. Patient fever, altered mental status, leukocytosis improved. Patient was sent home with by mouth antibiotics. Complications: None Allergies: Coded Allergies: NO KNOWN ALLERGIES (UNKNOWN 10/22/16) Pertinent Lab Results: Cervical spine CT 1. No acute intracranial pathology. 2. Nondiagnostic CT of cervical spine. Chest x-ray IMPRESSION: Unremarkable examination. Head CT IMPRESSION: 1. No acute intracranial pathology. 2. Nondiagnostic CT of cervical spine. Knee x-ray IMPRESSION: 1. Right knee: Suboptimal assessment, with no definite fracture. Degenerative changes, most severe in the medial compartment. 2. Left knee: Total knee arthroplasty hardware appears in anatomic alignment. No definite acute findings. Disposition Summary Disposition Principal Diagnosis: Left leg cellulitis Additional Diagnosis: Chronic opioid use Discharge Disposition: home or self care Discharge Instructions General Discharge Information Code Status: Full Code Patient's Diet: Regular diet Patient's Activity: As tolerated Follow-Up Instructions/Appts: Please follow-up with your primary care provider and orthopedic doctor within 1- 2 weeks of discharge. Medications at Discharge Discharge Medications: Continue taking these medications: Oxycodone HCl (Oxycodone HCl) 15 MG TABLET 1 Tablet ORAL Q4H Qty = 180 Comments: Last Taken: 09/11/17 Time: 1300PM Hydroxychloroquine Sulfate (Hydroxychloroquine Sulfate) 200 MG TABLET 1 Tablet ORAL DAILY Qty = 30 Comments: Last Taken: 09/11/17 Time: 0900AM Lisinopril (Lisinopril) 40 MG TABLET 1 Tablet ORAL DAILY Qty = 30 Comments: Last Taken: 09/11/17 Time: 1130AM Morphine Sulfate (Morphine Sulfate ER) 120 MG CPMP.24HR 1 Capsule ORAL Every Morning Qty = 30 Comments: NOT GIVEN IN HOSPITAL Duloxetine HCl (Duloxetine HCl) 30 MG CAPSULE.DR 30 Milligram ORAL TAKE AT BEDTIME Qty = 30 Comments: Last Taken: 09/10/17 Time: 2200PM Triamcinolone Acetonide (Triamcinolone Acetonide) 0.1 % CREAM..G. 1 Application On the skin as needed for SKIN Qty = 454 Comments: NOT GIVEN IN HOSPITAL Zaleplon (Zaleplon) 5 MG CAPSULE 1-2 Capsule ORAL TAKE AT BEDTIME Comments: NOT GIVEN IN HOSPITAL Start taking the following new medications: Lactobacillus Acidophilus (Acidophilus) 1 EACH CAPSULE 1 Capsule ORAL DAILY Qty = 30 No Refills Instructions: . Comments: NOT GIVEN IN HOSPITAL Amoxicillin/Potassium Clav (Augmentin 875-125 Tablet) 875 MG-125 MG TABLET 2 Tablet ORAL TWICE DAILY Qty = 16 No Refills Instructions: . Comments: NOT GIVEN IN HOSPITAL Copies To: Jun Green MD Attending MD Review Statement Documenting Attending: Ami Mendez MD Other Findings: 57 o/f with admiiting impression of cellulitis which has considerably improved on iv antibitocis. Patient needs to follow up with her orthopedician at [facility] and PCP at discharge on PO abx.
[2017-09-11] MEDS ORDERED: AUGMENTIN 875-1 EACH PO ×2 (14:21→15:57)
[2017-09-11] MEDS ORDERED: ACIDOPHILUS1 EACH PO ×2 (14:22→15:57)
[2017-09-11 14:32] VITALS: BP 156/92
--- NOTE | 2017-09-11 14:49 | PN- Infect Dx ---
Subjective Subjective: Afebrile. She complains of pain in both legs. Objective Last 24 Hrs of Vital Signs/I&O Vital Signs Date Time Temp Pulse Resp B/P B/P Pulse O2 O2 Flow FiO2 Mean Ox Delivery Rate 09/11 1432 98.5 98 18 156/92 93 09/11 1045 86 152/80 09/11 0800 22 95 Room Air 09/11 0701 162/92 09/11 0619 97.5 81 20 175/111 95 09/10 2321 98.6 78 20 153/87 95 Nasal 2.0L Cannula 09/10 1600 92 Room Air 09/10 1450 98.8 94 20 160/83 97 Nasal 2.0L Cannula Intake & Output 09/11 1600 09/11 0800 09/11 0000 Intake Total 1000 400 220 Output Total 1000 400 360 Balance 0 0 -140 Intake, IV 100 200 100 Intake, Oral 900 200 120 Number 2 Bowel Movements Output, Urine 1000 400 360 Physical Exam Other Physical Findings: She appears comfortable in no acute distress Extremities markedly decreased erythema of the left lower extremity, with no tenderness on palpation; minimal erythema of the right lower extremity above the ankle, nontender to palpation Results Last 24 Hours of Lab Results: Laboratory Tests 09/11 0858 Hematology CBC w Diff NO MAN DIFF REQ WBC (4.8 - 10.8 /CUMM) 5.6 RBC (4.20 - 5.40 /CUMM) 3.47 L Hgb (12.0 - 16.0 G/DL) 9.1 L Hct (37 - 47 %) 27.9 L MCV (81.0 - 99.0 FL) 80.4 L MCH (27.0 - 31.0 PG) 26.2 L MCHC (33.0 - 37.0 G/DL) 32.6 L RDW (11.5 - 14.5 %) 17.5 H Plt Count (130 - 400 /CUMM) 267 MPV (7.4 - 10.4 FL) 8.1 Gran % (42.2 - 75.2 %) 51.0 Lymphocytes % (20.5 - 51.1 %) 39.1 Monocytes % (1.7 - 9.3 %) 7.3 Eosinophils % (0 - 5 %) 1.9 Basophils % (0.0 - 2.0 %) 0.7 Absolute Granulocytes (1.4 - 6.5 /CUMM) 2.9 Absolute Lymphocytes (1.2 - 3.4 /CUMM) 2.2 Absolute Monocytes (0.10 - 0.60 /CUMM) 0.4 Absolute Eosinophils (0.0 - 0.7 /CUMM) 0.1 Absolute Basophils (0.0 - 0.2 /CUMM) 0 Last 24 Hours of Ibrahima Results: Blood cultures 2 September 08 negative Urine culture September 08 negative Urine culture September 09 negative Assessment/Plan ID Impression: Improved, with temperatures and white blood cell count now normal, on Unasyn Day 3 of treatment for a left leg cellulitis, with a marked decrease in the erythema of the left leg. Suggestion: 1. Discontinue Unasyn 2. Begin Augmentin 2 grams po every 12 hours for 4 more days
== END 2017-09-11 16:45 | disposition home health service (06) | DRG 871 ==
LOC: ERH 18:04 → 2NB 09-09 00:04 → ERHI 09-09 00:04 → ENRESERV 09-09 01:53 → 2NB 09-09 02:56 → ENPENDDIS 09-11 16:00 → ENTRNSPT 09-11 16:44 → 2NB 09-11 16:45 → CMPTRNSPT 09-11 17:15
PROVIDERS: Physician Assistant; Student in an Organized Health Care Education/Training Program
DX: A41.9 Sepsis, unspecified organism (principal); J96.01 Acute respiratory failure with hypoxia; E66.01 Morbid (severe) obesity due to excess calories; M32.9 Systemic lupus erythematosus, unspecified; Z68.44 Body mass index [BMI] 60.0-69.9, adult; L03.116 Cellulitis of left lower limb; F11.129 Opioid abuse with intoxication, unspecified; D50.9 Iron deficiency anemia, unspecified; I10 Essential (primary) hypertension; M79.7 Fibromyalgia; M06.9 Rheumatoid arthritis, unspecified; G47.33 Obstructive sleep apnea (adult) (pediatric); Z96.653 Presence of artificial knee joint, bilateral; M54.9 Dorsalgia, unspecified; M25.569 Pain in unspecified knee; F41.9 Anxiety disorder, unspecified
CPT/HCPCS: 2NBP; 36415; 36592; 71045; 73564-50; 80307; 81001; 82436; 87040; 87070; 87086; 87804; 87804-59; 93005; 93010; 96374; 96375; 96376; 97116-GO; 97161-GP; 99291; J0131; J1200; J1644; J1885; J2310; J2405; J2543; J2765; J3370; J7042; J7060

== ENCOUNTER 2017-12-24 20:43 | Inpatient (IN) | payer OTHER ==
[~2017-12-24] VITALS: Ht 157.5 cm; Wt 136.1 kg
[~2017-12-24 20:43] MED LIST changes: +ACIDOPHILUS1 EACH PO; +AUGMENTIN 875-1 EACH PO; -HYDROXYCHLOROQ200 M2 PO; +OXYCODONE HCL20 M2 PO
--- NOTE | 2017-12-24 21:34 | ED UPPER/LOWER EXTREMITY COMPL ---
History of Present Illness General Chief Complaint: Lower Extremity Problems Stated Complaint: "MY LEGS ARE BLEEDING, EDEMA" Source: patient, old records Exam Limitations: no limitations Vital Signs & Intake/Output Vital Signs & Intake/Output Vital Signs Date Time Temp Pulse Resp B/P B/P Pulse O2 O2 Flow FiO2 Mean Ox Delivery Rate 12/24 2050 98.3 77 16 146/82 98 Room Air Allergies Coded Allergies: NO KNOWN ALLERGIES (UNKNOWN 10/22/16) Reconcile Medications Amoxicillin/Potassium Clav (Augmentin 875-125 Tablet) 875 MG-125 MG TABLET 1 TAB PO BID cellulitis Amoxicillin/Potassium Clav (Augmentin 875-125 Tablet) 875 MG-125 MG TABLET 2 TAB PO BID CELLULITIS . Duloxetine HCl 30 MG CAPSULE.DR 30 MG PO QHS NERVE PAIN (Reported) Hydroxychloroquine Sulfate 200 MG TABLET 1 TAB PO DAILY LUPUS (Reported) Lactobacillus Acidophilus (Acidophilus) 1 EACH CAPSULE 1 CAP PO DAILY PROBIOTIC . Lisinopril 40 MG TABLET 1 TAB PO DAILY BP (Reported) Morphine Sulfate (Morphine Sulfate ER) 120 MG CPMP.24HR 1 CAP PO QAM PAIN ( Reported) Oxycodone HCl 15 MG TABLET 1 TAB PO Q4H PAIN (Reported) Triamcinolone Acetonide 0.1 % CREAM..G. 1 CAROL ANN TOP PRN SKIN (Reported) Zaleplon 5 MG CAPSULE 1-2 CAP PO QHS INSOMNIA (Reported) Triage Note: 57F SEEN ON 12/18 FOR RLE SWELLING/EDEMA/CELLULITIS HAD AN APPT W DR MEJIA WHO DX WITH BAD EDEMA. INSTRUCTED TO WRAP AND TAKING ANTIBIOTICS X3 DAYS. RECOMMENDED TO COME IN IF WORSENING, FAMILY REPORTS SPOTS ARE BLEEDING NOW AND COLORING CHANGED FROM PINK TO BEEF RED. HX LYMPHEDEMA. AFEBRILE. DENIES CP/COUGH/SOB Triage Nurses Notes Reviewed? yes Onset: Abrupt Duration: day(s): Timing: recent history Severity: moderate, severe No Modifying Factors: none HPI: 57-year-old female comes into the emergency room with worsening redness to her right lower leg spreading. Patient was seen here last week. She is on her vascular surgeon 4 days ago and was started on Bactrim. She has increased redness to the right leg with some spreading going up the inner leg. She denies any fever chills or flulike symptoms. Denies any vomiting. She comes in for further evaluation. Past History Travel History Traveled to [place] past 21 day No Medical History Any Pertinent Medical History? see below for history Neurological: NONE EENT: DEVIATED SEPTUM Cardiovascular: hypertension Respiratory: NONE Gastrointestinal: NONE Hepatic: NONE Renal: NONE Musculoskeletal: fibromyalgia, rheumatoid arthritis, LUPUS LYMPHEDEMA Psychiatric: NONE Endocrine: NONE Other Medical Hx: morbid obesity History of MRSA: No History of VRE: No History of CDIFF: No Tetanus Vaccine: 10/22/16 Surgical History Surgical History: knee replacement (left) Psychosocial History Who do you live with Spouse Services at Home Home Health Aide, Physical Therapy What is your primary language Greenlandic Tobacco Use: Never used Family History Family History, If Any: FATHER (lung cancer). grandmother (HTN, DM). Hx Contributory? No Review of Systems Review of Systems Constitutional: Reports: see HPI. EENTM: Reports: no symptoms. Respiratory: Reports: no symptoms. Cardiovascular: Reports: no symptoms. Gastrointestinal/Abdominal: Reports: no symptoms. Genitourinary: Reports: no symptoms. Musculoskeletal: Reports: no symptoms. Skin: Reports: see HPI. Neurological/Psychological: Reports: no symptoms. Hematologic/Endocrine: Reports: no symptoms. Immunological: Reports: no symptoms. All Other Systems: Reviewed and Negative Physical Exam Physical Exam General Appearance: mild distress, obese Head: atraumatic Eyes: Bilateral: normal appearance. Ears, Nose, Throat: normal ENT inspection, hearing grossly normal Neck: normal inspection Cardiovascular/Respiratory: no respiratory distress Back: normal inspection Leg Right: ERYTHEMA TO RIGHT LOWER LEG, SWELLING, DRAINAGE, LYMPH STREAKING GOING UP THE INNER LEG, WARM TO TOUCH, ERYTHEMA TO RIGHT ANKLE EXTENDING UP CIRCUMFERENTIAL EXTENDING UP THE LEFT INNER THIGH Neurologic/Tendon: normal motor functions, no evidence tendon injury Skin: intact, normal color, warm/dry Progress Differential Diagnosis: cellulitis, contusion, septic arthritis, sprain, tendon injury, SEPSIS Plan of Care: Orders Procedure Date/time Status BLOOD CULTURE 12/24 2132 Active WESTERGREN SED RATE 12/24 2132 Active C-REACTIVE PROTEIN 12/24 2132 Active COMPREHENSIVE METABOLIC PANEL 12/24 2132 Active CBC WITHOUT DIFFERENTIAL 12/24 2132 Active Laboratory Tests 12/24/17 2140: Sodium Pending, Potassium Pending, Chloride Pending, Carbon Dioxide Pending, Anion Gap Pending, BUN Pending, Creatinine Pending, BUN/Creatinine Ratio Pending , Glucose Pending, Calcium Pending, Total Bilirubin Pending, AST Pending, ALT Pending, Alkaline Phosphatase Pending, C-Reactive Prot, Quant Pending, Total Protein Pending, Albumin Pending, Globulin Pending, Albumin/Globulin Ratio Pending, CBC w Diff NO MAN DIFF REQ, RBC 4.04 L, MCV 78.3 L, MCH 25.1 L, MCHC 32.1 L, RDW 17.4 H, MPV 7.3 L, Gran % 43.5, Lymphocytes % 40.7, Monocytes % 9.7 H, Eosinophils % 5.1 H, Basophils % 1.0, Absolute Granulocytes 2.4, Absolute Lymphocytes 2.3, Absolute Monocytes 0.5, Absolute Eosinophils 0.3, Absolute Basophils 0.1, ESR Westergren Pending Microbiology 12/24 2199 BLOOD: Blood Culture - RECD 12/25 2139 BLOOD: Blood Culture - RECD Departure Departure Disposition: STILL A PATIENT Condition: Stable Clinical Impression Primary Impression: Cellulitis of right lower leg Referrals: Green Jun CRAVEN (PCP/Family) Departure Forms: Customer Survey General Discharge Information Admission Note Spoke With: Adwoa Beltran MD Documentation of Exam: Documentation of any treatments & extenuating circumstances including Concerns Regarding Discharge (functional status, medication knowledge or non-compliance, living conditions, etc.) that warrant an admission rather than observation: Patient will require IV antibiotics. She has failed outpatient treatment. Leg elevation. Possibly some IV diuresis. Wound care consultation. Vascular consultation. elevation. Possibly some IV diuresis. Wound care consultation. Vascular consultation.
[2017-12-24 22:06] LABS: ABSOLUTE BASOPHIL COUNT 0.1 /CUMM (0.0-0.2); ABSOLUTE EOSINOPHIL COUNT 0.3 /CUMM (0.0-0.7); ABSOLUTE GRANULOCYTE CT 2.4 /CUMM (1.4-6.5); ABSOLUTE LYMPH COUNT 2.3 /CUMM (1.2-3.4); ABSOLUTE MONOCYTE COUNT 0.5 /CUMM (0.10-0.60); EOSINOPHIL % 5.1 % (0-5); GRANULOCYTE % 43.5 % (42.2-75.2); HEMATOCRIT 31.7 % (37-47); MEAN CORPUSCULAR HGB 25.1 PG (27.0-31.0); MEAN CORPUSCULAR HGB CONC 32.1 G/DL (33.0-37.0); MEAN CORPUSCULAR VOLUME 78.3 FL (81.0-99.0); MEAN PLATELET VOLUME 7.3 FL (7.4-10.4); PLATELET COUNT 383 /CUMM (130-400); RBC DISTRIBUTION WIDTH 17.4 % (11.5-14.5); RED BLOOD CELL CT 4.04 /CUMM (4.20-5.40); WHITE BLOOD CELL COUNT 5.6 /CUMM (4.8-10.8)
--- NOTE | 2017-12-24 22:55 | History & Physical ---
Ajith Myers 12/24/17 2254: General Information and HPI MD Statement: I have seen and personally examined LEO SALAZAR and documented this H&P. The patient is a 57 year old F who presented with a patient stated chief complaint of []. Source of Information: patient, family Exam Limitations: no limitations History of Present Illness: 57 year old female with PMH of hypertension, Lupus, fibromyalgia, rheumatoid arthritis, obesity, bilateral lower exremity edema, obstructive sleep apnea, septic arthritis of left knee s/p left knee replacement, and left lower extremity cellulitis with sepsis, presents to ED with worsening erythema of her right lower leg. She was started on Bactrim BID 4 days ago (12/21 night) for her right lower extremity erythema and swelling but has failed to see any improvement. According to the patient, the erythema has increased up her thigh and around her leg to her inner leg and thigh while being on this treatment. She also endorses that there was some clear drainage in the distal lower left extremity (closer to the ankle) for the past few days but it has now stopped. Patient currently denies any fever, chills, nausea, or vomiting. Allergies/Medications Allergies: Coded Allergies: NO KNOWN ALLERGIES (UNKNOWN 10/22/16) Past History Travel History Traveled to [place] past 21 day No Medical History Neurological: NONE EENT: DEVIATED SEPTUM Cardiovascular: hypertension Respiratory: NONE Gastrointestinal: NONE Hepatic: NONE Renal: NONE Musculoskeletal: fibromyalgia, rheumatoid arthritis, LUPUS LYMPHEDEMA Psychiatric: NONE Endocrine: NONE Other Medical Hx: morbid obesity History of MRSA: No History of VRE: No History of CDIFF: No Tetanus Vaccine: 10/22/16 Surgical History Surgical History: knee replacement (left) Past Family/Social History Family History Relations & Conditions if any FATHER (lung cancer). grandmother (HTN, DM). Psychosocial History Services at Home: Home Health Aide, Physical Therapy Functional Ability ADLs Independent: dressing, eating, toileting, bathing. Review of Systems Review of Systems Constitutional: Denies: chills, fever. EENTM: Reports: no symptoms. Cardiovascular: Reports: edema. Respiratory: Reports: no symptoms. GI: Denies: nausea, vomiting. Genitourinary: Reports: no symptoms. Musculoskeletal: Reports: no symptoms. Skin: Reports: no symptoms. Neurological/Psychological: Reports: no symptoms. Hematologic/Endocrine: Reports: no symptoms. Immunologic/Allergic: Reports: no symptoms. All Other Systems: Reviewed and Negative Exam & Diagnostic Data Last 24 Hrs of Vital Signs/I&O Vital Signs Date Time Temp Pulse Resp B/P B/P Pulse O2 O2 Flow FiO2 Mean Ox Delivery Rate 12/25 0026 Room Air 12/24 2050 98.3 77 16 146/82 98 Room Air Intake & Output 12/25 0800 12/25 0000 12/24 1600 Intake Total Output Total Balance Patient 300 lb Weight Weight Reported by Patient Measurement Method Physical Exam HEENT Atraumatic, PERRLA, EOMI, Mucous Membr. moist/pink Cardiovascular Regular Rate, Normal S1, Normal S2 Lungs Clear to Auscultation, Normal Air Movement Abdomen Normal Bowel Sounds, Soft, No Tenderness Extremities No Clubbing (4+ Pittng edema LE B/L ), No Cyanosis Vascular Normal Pulses Last 24 Hrs of Labs/Ibrahima: Laboratory Tests 12/24/172139: Anion Gap 7, Estimated GFR > 60, BUN/Creatinine Ratio 25.6 H, Glucose 100 H, Calcium 10.6 H, Total Bilirubin 0.2, AST 33, ALT 20, Alkaline Phosphatase 90, C -Reactive Prot, Quant 2.2 H, Total Protein 8.7 H, Albumin 3.7, Globulin 5.0 H , Albumin/Globulin Ratio 0.7 L, CBC w Diff NO MAN DIFF REQ, RBC 4.04 L, MCV 78.3 L, MCH 25.1 L, MCHC 32.1 L, RDW 17.4 H, MPV 7.3 L, Gran % 43.5, Lymphocytes % 40.7, Monocytes % 9.7 H, Eosinophils % 5.1 H, Basophils % 1.0, Absolute Granulocytes 2.4, Absolute Lymphocytes 2.3, Absolute Monocytes 0.5, Absolute Eosinophils 0.3, Absolute Basophils 0.1, ESR Westergren 70 H Microbiology 12/24 2199 BLOOD: Blood Culture - RECD 12/25 2139 BLOOD: Blood Culture - RECD Assessment/Plan Assessment: Assessment and Plan: 57 year old female with PMH of hypertension, Lupus, fibromyalgia, rheumatoid arthritis, obesity, bilateral lower exremity edema, obstructive sleep apnea, septic arthritis of left knee s/p left knee replacement, and left lower extremity cellulitis with sepsis, presents to ED with worsening erythema of her right lower leg. 1. Cellulitis of lower left extremity: - T 98.3 F (Afebrile), WBC 5.6 (normal range) - Start IV Unasyn - Blood Cultures Daily - Wound Care Consult - Lovenox for DVT ppx (ALPs contraindicated) As Ranked By This Provider Problem List: 1. Cellulitis 2. Lymphedema 3. Cellulitis of right lower leg Core Measures/Misc (03/12) Acute Coronary Syndrome ACS Diagnosis: No Congestive Heart Failure Congestive Heart Failure Diagnosis No Cerebrovascular Accident CVA/TIA Diagnosis: No VTE (View Protocol) VTE Risk Factors Age>40 No Mechanical VTE Prophylaxis d/t Physical Contraindication No VTE Pharm Prophylaxis d/t NA PharmProphylax ordered Sepsis (View protocol) Sepsis Present: No If YES complete Sepsis Event Note If YES complete Sepsis Event Note Adwoa Beltran MD 12/24/17 0482: Core Measures/Misc (03/12) Sepsis (View protocol) If YES complete Sepsis Event Note If YES complete Sepsis Event Note Attending MD Review Statement Attending Statement Attending MD Statement: examined this patient, discuss w/resident/PA/UPPER LINING CEMENTER, agreed w/resident/PA/UPPER LINING CEMENTER, reviewed EMR data (avail) Attending Assessment/Plan: 57F PMH HTN, fibromyalgia, RA, SLE, obesity, LUIS, and bilateral knee replacements presenting with erythema of the RLE for 2 days, and burgeoning erythema of the LLE for 1 day. A few months ago had septic arthritis of the left knee with hardware replacement, LLE cellulitis back in July with sepsis. Given Bactrim by her PCP on 12/21 with no improvement. Afebrile, normal WBC, LLE erythematous at lower iglesias. Sees vascular for superficial vein problems, no history of PAD. 1. Right lower extremity cellulitis 2. Failure of outpatient treatment Plan - Admit to general medicine - Start Unasyn - Blood cultures - Leg elevation - Wound care consunlt - Continue home medications - DVT PPx Vasquez CRAVENMelissa 12/25/17 1820: General Information and HPI MD Statement: I have seen and personally examined ОЛЕГHeriLEO and documented this H&P. The patient is a 57 year old F who presented with a patient stated chief complaint of [ ]. Allergies/Medications Home Med list Duloxetine HCl (Cymbalta) 60 MG CAPSULE.DR 1 CAP PO DAILY PAIN (Reported) Duloxetine HCl 30 MG CAPSULE.DR 30 MG PO QHS NERVE PAIN (Reported) Lactobacillus Acidophilus (Acidophilus) 1 EACH CAPSULE 1 CAP PO DAILY PROBIOTIC . Lisinopril 40 MG TABLET 1 TAB PO DAILY BP (Reported) Melatonin 3 MG TABLET 2 TAB PO QPM INSOMNIA (Reported) Morphine Sulfate (Morphine Sulfate ER) 120 MG CPMP.24HR 1 CAP PO QAM PAIN ( Reported) Oxycodone HCl 15 MG TABLET 1 TAB PO Q4H PAIN (Reported) Triamcinolone Acetonide 0.1 % CREAM..G. 1 CAROL ANN TOP PRN SKIN (Reported) Exam & Diagnostic Data Last 24 Hrs of Vital Signs/I&O Vital Signs Date Time Temp Pulse Resp B/P B/P Pulse O2 O2 Flow FiO2 Mean Ox Delivery Rate 12/25 0026 Room Air 12/24 2050 98.3 77 16 146/82 98 Room Air Intake & Output 12/25 0800 07 0000 12/24 1600 Intake Total Output Total Balance Patient 300 lb Weight Weight Reported by Patient Measurement Method Core Measures/Misc (03/12) Sepsis (View protocol) If YES complete Sepsis Event Note If YES complete Sepsis Event Note Resident Review Statement Resident Statement: examined this patient, discussed with consumer insights intern, agreed with consumer insights intern, discussed with family Other Findings: Ms. Salazar is a 57 year old lady with PMH significant for HTN, fibromyalgia, RA, SLE, obesity, LUIS (not on CPAP), lymphedema, ?? left knee Septic arthritis and bilateral knee replacements who presents with right lower extremity erythema and swelling for the past 1 week. According to the patient, she noticed worsening swelling and erythema of her right lower extremity this past Monday. She has baseline erythema of her lower extremity mainly around her right ankle but has never noticed bleeding or discharge. She spoke with her vascular surgeon, Dr. Levine, 4 days ago and was started on Bactrim. Pertinent Lawrence, the procedure sleeping anymore 1 Bactrim but the erythema continues to spread and get worse. Denies any weakness but does report noticing clear discharge and bleeding from the wounds. Denies any insect bites. Also denies any fever or chills. Vitals on admission were MAXIMUM TEMPERATURE 8.3, heart rate 77, respiratory rate 16, blood pressure 146/82 and O2 sats 98% on room air. Patient had a WBC count of 5.6, H&H 2/31.7, platelet count 383, CRP 2.2, ESR 70, and albumin 23. Patient received 1 dose of IV Unasyn in the ER. Problem list; 1. Right lower extremity cellulitis, failed outpatient treatment. 2. Chronic medical conditions - [facility] Start the patient on IV Unasyn - Obtain blood cultures. - Repeat CBC in a.m. - Wound consult. - Will continue her home meds. DVT prophylaxis; subcutaneous Lovenox, no mechanical prophylaxis because of cellulitis Patient is full code
[2017-12-24] MEDS ORDERED: CYMBALTA60 M1 PO (23:55)
[2017-12-24] MEDS ORDERED: MELATONIN3 M4 PO (23:59)
--- NOTE | 2017-12-25 00:03 | Admission Certification ---
Admission Certification Certification Statement - As attending physician, I certify that at the time of - admission, based on clinical presentation, severity of - symptoms, need for further diagnostic testing and - therapeutic interventions, and risk of adverse outcomes - without in-hospital treatment, in my clinical assessment, - this patient requires an acute hospital stay for a minimum - of two nights or longer. I have also considered psychsocial - factors such as support system, advanced age, financial - issues, cognitive issues, and failed out-patient treatments, - past re-admission history, safety of patient, and lack of - compliance as applicable. Specific rationale supporting this admission is: RLE cellulitis failing outpatient antibiotics
[2017-12-25 06:07] VITALS: BP 140/72
[2017-12-25 07:30] LABS: ABSOLUTE BASOPHIL COUNT 0 /CUMM (0.0-0.2); ABSOLUTE EOSINOPHIL COUNT 0.3 /CUMM (0.0-0.7); ABSOLUTE GRANULOCYTE CT 1.7 /CUMM (1.4-6.5); ABSOLUTE MONOCYTE COUNT 0.5 /CUMM (0.10-0.60); GRANULOCYTE % 37.9 % (42.2-75.2); HEMATOCRIT 30.2 % (37-47); MEAN CORPUSCULAR HGB 25.6 PG (27.0-31.0); MEAN CORPUSCULAR HGB CONC 32.5 G/DL (33.0-37.0); MEAN CORPUSCULAR VOLUME 78.6 FL (81.0-99.0); MEAN PLATELET VOLUME 7.7 FL (7.4-10.4); RBC DISTRIBUTION WIDTH 17.8 % (11.5-14.5); RED BLOOD CELL CT 3.84 /CUMM (4.20-5.40); WHITE BLOOD CELL COUNT 4.5 /CUMM (4.8-10.8)
--- NOTE | 2017-12-25 07:57 | PN- Housestaff ---
See Addendum Subjective Follow-up For: RIGHT LOWER EXTREMITIY CELLULITIS Complaints: no complaints Subjective: No acute events overnight. Patient states she has no pain. Her right lower leg is red and itchy. She denies fever, chills, n/v/d, chest pain, SOB, abd pain. Review of Systems Constitutional: Reports: see HPI. Objective Last 24 Hrs of Vital Signs/I&O Vital Signs Date Time Temp Pulse Resp B/P B/P Pulse O2 O2 Flow FiO2 Mean Ox Delivery Rate 12/25 0607 97.9 70 18 140/72 99 Room Air 12/25 0026 Room Air 12/24 2050 98.3 77 16 146/82 98 Room Air Intake & Output 12/25 0800 12/25 0000 12/24 1600 Intake Total 340 Output Total Balance 340 Intake, IV 100 Intake, Oral 240 Patient 300 lb Weight Weight Reported by Patient Measurement Method Physical Exam General Appearance: Alert, Oriented X3, Cooperative, obese Skin: see extremity exam Skin Temp/Moisture Exam: Warm/Dry HEENT: Atraumatic, PERRLA Neck: Supple Cardiovascular: Regular Rate, Normal S1, Normal S2 Lungs: Clear to Auscultation Abdomen: Soft, No Tenderness Extremities: RLE with erythema and warmth. non tender to palpation. scattered areas of serous drainage. marker tracing to outline erythema upon admission. No advancement of erythema. Assessment/Plan Assessment: 57 year old female with PMH significant for SLE, RA, HTN, LUIS, Left knee replacement with septic joint (2016) admitted for RLE cellulitis. ID and wound care consulted with recommendations for elevation of RLE to improve swelling. Will continue IV unasyn for treatment of cellulitis. #RLE Cellulitis -IV unasyn -elevation of RLE #Chronic illnesses -continue home meds DVT prophylaxis: lovenox, ambulation as tolerated Problem List: 1. Cellulitis Pain Ratin Pain Location: none Pain Goal: Remain pain free Pain Plan: see a/p Tomorrow's Labs & Rationales: cbc
[2017-12-25 08:14] LABS: PLATELET COUNT 307 /CUMM (130-400)
--- NOTE | 2017-12-25 11:59 | Cons- Wound Care ---
General Information and HPI Consulting Request Date of Consult: 12/25/17 Requested By: Pastor Cunningham MD Reason for Consult: Lower extremity cellulitis History of Present Illness: Patient is a 57-year-old morbidly obese woman with chronic lymphedema multiple medical problems having failed outpatient treatment for right lower extremity cellulitis is admitted with increasing erythema of her right lower extremity. She reports chills. She apparently failed outpatient Bactrim. Followed by vascular surgery for chronic lymphedema Allergies/Medications Allergies: Coded Allergies: NO KNOWN ALLERGIES (UNKNOWN 10/22/16) Home Med List: Duloxetine HCl (Cymbalta) 60 MG CAPSULE.DR 1 CAP PO DAILY PAIN (Reported) Duloxetine HCl 30 MG CAPSULE.DR 30 MG PO QHS NERVE PAIN (Reported) Lactobacillus Acidophilus (Acidophilus) 1 EACH CAPSULE 1 CAP PO DAILY PROBIOTIC . Lisinopril 40 MG TABLET 1 TAB PO DAILY BP (Reported) Melatonin 3 MG TABLET 2 TAB PO QPM INSOMNIA (Reported) Morphine Sulfate (Morphine Sulfate ER) 120 MG CPMP.24HR 1 CAP PO QAM PAIN ( Reported) Oxycodone HCl 15 MG TABLET 1 TAB PO Q4H PAIN (Reported) Triamcinolone Acetonide 0.1 % CREAM..G. 1 CAROL ANN TOP PRN SKIN (Reported) Review of Systems Review of Systems: She has no history of peripheral vascular disease Past History Travel History Traveled to [place] past 21 day No Medical History Blood Transfusion Hx: No Neurological: NONE EENT: DEVIATED SEPTUM Cardiovascular: hypertension Respiratory: NONE Gastrointestinal: NONE Hepatic: NONE Renal: NONE Musculoskeletal: fibromyalgia, rheumatoid arthritis, LUPUS LYMPHEDEMA Psychiatric: NONE Endocrine: NONE Other Medical Hx: morbid obesity Surgical History Surgical History: knee replacement (left) Family History Relations & Conditions If Any: FATHER (lung cancer). grandmother (HTN, DM). Psychosocial History Where Do You Live? Home Services at Home: Home Health Aide, Physical Therapy Smoking Status: Former Smoker Functional Ability ADLs Independent: dressing, eating, toileting, bathing. Exam & Diagnostic Data Vital Signs and I&O Vital Signs Result Date Time B/P 138/62 12/25 0928 Pulse 80 12/25 0928 Pulse Ox 99 12/25 606 O2 Delivery Room Air 12/25 606 Temp 97.9 12/25 06 Resp 18 12/25 606 Patient has morbid obesity and chronic lymphedema with extensive erythema of the right lower extremity with small areas of blistering. Distal pulses are unable to be palpated due to edema Assessment/Plan Impression/Plan: T7-year-old morbidly obese woman with history of collagen vascular disease sleep apnea lymphedema is admitted with extensive cellulitis of the right lower extremity having failed outpatient therapy with Bactrim. Recommend change her bed to one which will allow for leg elevation follow-up cultures. If she develops drainage cover areas with Adaptic and gauze dressing. Complete course of antibiotics. Consult Acknowledgment - Thank you for your consult request.
--- NOTE | 2017-12-25 13:59 | Cons- Infect Disease ---
General Information and HPI Consulting Request Date of Consult: 12/25/17 Requested By: Pastor Cunningham MD Reason for Consult: Cellulitis of the right lower extremity Source of Information: patient, old records History of Present Illness: This is a 57-year-old woman with a history of obesity, hypertension, obstructive sleep apnea, discoid lupus, fibromyalgia, chronic pain, maintained on oxycodone, rheumatoid arthritis, status post left knee replacement over 3 years prior to admission, requiring removal because of infection, with replacement 7 months prior to admission, and chronic lower extremity lymphedema, hospitalized over 3 months prior to admission with a cellulitis of the left lower extremity, seen in the emergency room 1 week prior to admission with increased swelling of both lower extremities, begun on Bactrim 3 days prior to admission by a vascular surgical PA because of erythema of the right lower extremity, admitted on December 24 after presenting to the emergency room with increasing erythema of the right leg with bleeding from several areas on the lateral aspect of her right leg, with no associated pain, fevers or chills. On admission she was afebrile. Laboratory data revealed a white blood cell of 5.6, BUN/creatinine 23 and 0.9, with normal liver enzymes. She was begun on Unasyn and has remained afebrile overnight. She notes decreased swelling but increased erythema of the right lower extremity today. Allergies/Medications Allergies: Coded Allergies: NO KNOWN ALLERGIES (UNKNOWN 10/22/16) Home Med List: Duloxetine HCl (Cymbalta) 60 MG CAPSULE.DR 1 CAP PO DAILY PAIN (Reported) Duloxetine HCl 30 MG CAPSULE.DR 30 MG PO QHS NERVE PAIN (Reported) Lactobacillus Acidophilus (Acidophilus) 1 EACH CAPSULE 1 CAP PO DAILY PROBIOTIC . Lisinopril 40 MG TABLET 1 TAB PO DAILY BP (Reported) Melatonin 3 MG TABLET 2 TAB PO QPM INSOMNIA (Reported) Morphine Sulfate (Morphine Sulfate ER) 120 MG CPMP.24HR 1 CAP PO QAM PAIN ( Reported) Oxycodone HCl 15 MG TABLET 1 TAB PO Q4H PAIN (Reported) Triamcinolone Acetonide 0.1 % CREAM..G. 1 CAROL ANN TOP PRN SKIN (Reported) Past History Travel History Traveled to [place] past 21 day No Medical History Blood Transfusion Hx: No Neurological: NONE EENT: DEVIATED SEPTUM Cardiovascular: hypertension Respiratory: obstructive sleep apnea Gastrointestinal: NONE Hepatic: NONE Renal: NONE Musculoskeletal: fibromyalgia, rheumatoid arthritis Psychiatric: NONE Endocrine: NONE Other Medical Hx: morbid obesity discoid lupus chronic pain lymphedema both lower extremities History of MRSA: No History of VRE: No History of CDIFF: No Isolation History: Standard Tetanus Vaccine: 10/22/16 Surgical History Surgical History: knee replacement (left) Family History Relations & Conditions If Any: FATHER (lung cancer). grandmother (HTN, DM). Psychosocial History Where Do You Live? Home Services at Home: Home Health Aide, Physical Therapy Smoking Status: Former Smoker Functional Ability ADLs Independent: dressing, eating, toileting, bathing. Review of Systems Review of Systems All Other Systems: Reviewed and Negative Exam & Diagnostic Data Last 24 Hrs of Vital Signs/I&O Vital Signs Date Time Temp Pulse Resp B/P B/P Pulse O2 O2 Flow FiO2 Mean Ox Delivery Rate 12/25 0928 80 138/62 12/25 0607 97.9 70 18 140/72 99 Room Air 12/25 0026 Room Air 12/24 2051 98.3 77 16 146/82 98 Room Air Intake & Output 12/25 1600 12/25 0800 12/25 0000 Intake Total 340 Output Total Balance 340 Intake, IV 100 Intake, Oral 240 Patient 300 lb 300 lb Weight Weight Reported by Patient Measurement Method Physical Exam Other Physical Findings: She is awake and alert in no acute distress. She is afebrile. Skin reveals no rash. HEENT exam is negative. Neck is supple with no adenopathy. Lungs are clear. Heart regular rhythm with no murmur. Abdomen is obese, soft, nontender with positive bowel sounds. Back no CVA tenderness. Extremities bilateral lower extremity edema, right greater than left, with significant erythema of the right lower extremity from the ankle to the knee, not warm or tender to palpation, with early blisters. Neuro is without focality. Last 24 Hours of Lab Results: Laboratory Tests 12/25 12/24 0642 2140 Chemistry Sodium (137 - 145 mmol/L) 142 141 Potassium (3.5 - 5.1 mmol/L) 4.1 4.3 Chloride (98 - 107 mmol/L) 105 104 Carbon Dioxide (22 - 30 mmol/L) 30 30 Anion Gap (5 - 16) 6 7 BUN (7 - 17 mg/dL) 20 H 23 H Creatinine (0.5 - 1.0 mg/dL) 0.8 0.9 Estimated GFR (>60 ml/min) > 60 > 60 BUN/Creatinine Ratio (7 - 25 %) 25.0 25.6 H Glucose (65 - 99 mg/dL) 100 H Calcium (8.4 - 10.2 mg/dL) 10.6 H Total Bilirubin (0.2 - 1.3 mg/dL) 0.2 AST (14 - 36 U/L) 33 ALT (9 - 52 U/L) 20 Alkaline Phosphatase (<127 U/L) 90 C-Reactive Prot, Quant (<1.0 mg/dL) 2.2 H Total Protein (6.3 - 8.2 g/dL) 8.7 H Albumin (3.5 - 5.0 g/dL) 3.7 Globulin (1.9 - 4.2 gm/dL) 5.0 H Albumin/Globulin Ratio (1.1 - 2.2 %) 0.7 L Hematology CBC w Diff NO MAN DIFF REQ NO MAN DIFF REQ WBC (4.8 - 10.8 /CUMM) 4.5 L 5.6 RBC (4.20 - 5.40 /CUMM) 3.84 L 4.04 L Hgb (12.0 - 16.0 G/DL) 9.8 L 10.2 L Hct (37 - 47 %) 30.2 L 31.7 L MCV (81.0 - 99.0 FL) 78.6 L 78.3 L MCH (27.0 - 31.0 PG) 25.6 L 25.1 L MCHC (33.0 - 37.0 G/DL) 32.5 L 32.1 L RDW (11.5 - 14.5 %) 17.8 H 17.4 H Plt Count (130 - 400 /CUMM) 307 383 MPV (7.4 - 10.4 FL) 7.7 7.3 L Gran % (42.2 - 75.2 %) 37.9 L 43.5 Lymphocytes % (20.5 - 51.1 %) 45.1 40.7 Monocytes % (1.7 - 9.3 %) 10.0 H 9.7 H Eosinophils % (0 - 5 %) 6.0 H 5.1 H Basophils % (0.0 - 2.0 %) 1.0 1.0 Absolute Granulocytes (1.4 - 6.5 /CUMM) 1.7 2.4 Absolute Lymphocytes (1.2 - 3.4 /CUMM) 2.0 2.3 Absolute Monocytes (0.10 - 0.60 /CUMM) 0.5 0.5 Absolute Eosinophils (0.0 - 0.7 /CUMM) 0.3 0.3 Absolute Basophils (0.0 - 0.2 /CUMM) 0 0.1 ESR Westergren (0 - 20 MM) 70 H Last 24 Hours of Ibrahima Results: Blood cultures 2 December 24 negative Assessment/Plan Assessment/Plan Impression: This is a 57-year-old woman with chronic lower extremity lymphedema, hospitalized over 3 months prior to admission with a cellulitis of the left lower extremity, begun on Bactrim 3 days prior to admission because of erythema of the right lower extremity, admitted on December 24 with increasing erythema of the right leg, with no pain, fevers or chills, found to be afebrile with a normal white blood cell count, with her blood cultures so far negative. The report of increased erythema and edema of the right lower extremity does raise concern for a cellulitis, though she has no fever or leukocytosis to support this diagnosis. Of note, on her recent hospitalization 3 1/2 months prior to admission for cellulitis of the left lower extremity, she did have a significant fever and leukocytosis; nevertheless, given the appearance of her right lower extremity, it seems reasonable to treat her for cellulitis and observe her response over the next 48-72 hours. Suggestion: 1. Elevation of the right lower extremity 2. Continue Unasyn Consult Acknowledgment - Thank you for your consult request.
[2017-12-25 16:00] VITALS: BP 130/68
[2017-12-25 22:31] VITALS: BP 142/80
[2017-12-26 06:42] VITALS: BP 142/84
--- NOTE | 2017-12-26 12:04 | PN- Infect Dx ---
Subjective Subjective: Afebrile without complaints Objective Last 24 Hrs of Vital Signs/I&O Vital Signs Date Time Temp Pulse Resp B/P B/P Pulse O2 O2 Flow FiO2 Mean Ox Delivery Rate 12/26 0850 64 134/80 12/26 0642 97.9 56 20 142/84 97 Room Air 12/25 2231 98.1 71 18 142/80 95 Room Air 12/25 1610 99 Room Air 12/25 1600 98.0 70 18 130/68 Intake & Output 12/26 1600 12/26 0800 12/26 0000 Intake Total 850 620 Output Total 0 Balance 850 620 Intake, IV 130 140 Intake, Oral 720 480 Number 0 0 Bowel Movements Output, 0 Drainage Patient 300 lb Weight Physical Exam Other Physical Findings: She appears comfortable in no acute distress Extremities decreased erythema and edema of the right lower extremity, with minimal tenderness on palpation; bilateral blisters on both lower extremities Results Last 24 Hours of Lab Results: No labs from today Last 24 Hours of Ibrahima Results: Blood cultures 2 December 24 negative Assessment/Plan ID Impression: Stable, with her temperatures and white blood cell count remaining normal, on Unasyn, Day 2 of treatment for presumed cellulitis of the right lower extremity, though the absence of fever, leukocytosis and tenderness makes cellulitis somewhat unusual. She does have a history of discoid lupus, and the possibility that her skin lesions are a manifestation of this could be considered. Suggestion: 1. Would consider skin biopsy of her lower extremity lesions 2. Consider Dermatology and/or Rheumatology evaluation 3. Continue elevation of the right lower extremity 4. Continue Unasyn pending above
--- NOTE | 2017-12-26 13:26 | PN- Housestaff ---
See Addendum Subjective Follow-up For: RLE cellulitis Complaints: no complaints Subjective: Patient states she did well overnight. She states the pruritis has resolved and she feels the redness is resolving. She has no other complaints and denies fever, chills, n/v/d, chest pain, SOB. Review of Systems Constitutional: Reports: see HPI. Objective Last 24 Hrs of Vital Signs/I&O Vital Signs Date Time Temp Pulse Resp B/P B/P Pulse O2 O2 Flow FiO2 Mean Ox Delivery Rate 12/26 0850 64 134/80 07/ 0642 97.9 56 20 142/84 97 Room Air 12/25 2231 98.1 71 18 142/80 95 Room Air 12/25 1610 99 Room Air 12/25 1600 98.0 70 18 130/68 Intake & Output 12/26 1600 12/26 0800 07/ 0000 Intake Total 850 620 Output Total 0 Balance 850 620 Intake, IV 130 140 Intake, Oral 720 480 Number 0 0 Bowel Movements Output, 0 Drainage Patient 300 lb Weight Physical Exam General Appearance: Alert, Oriented X3, Cooperative, No Acute Distress Skin: RLE erythema, non tender; not crossing pen line drawn to assess spread Edema to BLE. Sensations and motor function intact. Skin Temp/Moisture Exam: Warm/Dry HEENT: Atraumatic, PERRLA Neck: Supple Cardiovascular: Regular Rate, Normal S1, Normal S2 Lungs: Clear to Auscultation, Normal Air Movement Abdomen: Normal Bowel Sounds, Soft, No Tenderness (soft) Extremities: No Cyanosis Assessment/Plan Assessment: 57 year old female with PMH cellulitic leg infections, SLE, RA, HTN, fibromyalgia, LUIS, Left knee replacement (revised 04/2017) admitted with RLE cellulitis. Patient presented unconventionally with no fever or leukocytosis. Suspicion for cellulitis was high and patient was placed on abx: IV unasyn. The erythema has improved each day. Patient discussed possibility of SLE cause of rash since she presented with discoid rash at time of SLE diagnosis. Upon further investigation of SLE discoid rash appearance, this is unlikely to be the cause of her RLE erythema. Will continue to treat as a cellulitic infection per ID recs with IV abx 3-5 days. #RLE cellulitis -IV unasyn 3-5 day course -Elevate lower extremities above the level of the heart to decrease swelling in RLE -Will consider skin biopsy; derm/rheum consult per ID recs #chronic illness -continue home medications DVT Prophylaxis: lovenox; ambulation Problem List: 1. Cellulitis of right lower leg Pain Ratin Pain Location: none Pain Goal: Remain pain free Pain Plan: see a/p Tomorrow's Labs & Rationales: none
[2017-12-26] MEDS ORDERED: AUGMENTIN 875-1 EACH PO (14:31)
[2017-12-26 14:43] VITALS: BP 134/72
[2017-12-26 22:53] VITALS: BP 120/70
[2017-12-27 06:34] VITALS: BP 120/70
[2017-12-27 07:38] LABS: ABSOLUTE BASOPHIL COUNT 0 /CUMM (0.0-0.2); ABSOLUTE EOSINOPHIL COUNT 0.3 /CUMM (0.0-0.7); ABSOLUTE GRANULOCYTE CT 1.7 /CUMM (1.4-6.5); ABSOLUTE LYMPH COUNT 2.5 /CUMM (1.2-3.4); ABSOLUTE MONOCYTE COUNT 0.5 /CUMM (0.10-0.60); BASOPHIL % 0.8 % (0.0-2.0); EOSINOPHIL % 5.7 % (0-5); HEMATOCRIT 30.7 % (37-47); MEAN CORPUSCULAR HGB 25.4 PG (27.0-31.0); MEAN CORPUSCULAR HGB CONC 32.1 G/DL (33.0-37.0); MEAN CORPUSCULAR VOLUME 79.1 FL (81.0-99.0); MEAN PLATELET VOLUME 7.6 FL (7.4-10.4); PLATELET COUNT 325 /CUMM (130-400); RBC DISTRIBUTION WIDTH 17.6 % (11.5-14.5); RED BLOOD CELL CT 3.89 /CUMM (4.20-5.40); WHITE BLOOD CELL COUNT 4.9 /CUMM (4.8-10.8)
--- NOTE | 2017-12-27 08:32 | PN- Housestaff ---
See Addendum Subjective Follow-up For: RLE cellulitis Complaints: no complaints Subjective: No acute events overnight. Patient states she forgot to mention an associated sx with her RLE redness: right foot burning sensation. She states she really does not have any pain and the rash has significantly decreased pruritis. She states she is doing well and would like to go home and continue abx PO if possible. Denies fever, chills, n/v/d, chest pain, SOB, abd pain, numbness or tingling to lower extremities. Review of Systems Constitutional: Reports: see HPI. Objective Last 24 Hrs of Vital Signs/I&O Vital Signs Date Time Temp Pulse Resp B/P B/P Pulse O2 O2 Flow FiO2 Mean Ox Delivery Rate 12/27 0634 97.6 67 20 120/70 100 Room Air 12/26 2253 98.1 66 20 120/70 94 Room Air 12/26 1443 97.6 74 20 134/72 94 Room Air Intake & Output 12/27 1600 12/27 0800 12/27 0000 Intake Total 100 Output Total 400 Balance -400 100 Intake, IV 100 Output, Urine 400 Physical Exam General Appearance: Alert, Oriented X3, Cooperative, morbidly obese with bilateral lower extremity lymph edema Skin: RLE with erythematous rash non spreading and decreasing in area since admission. Areas of open wounds that weep serous fluid have been dressed by RN for showering. Skin Temp/Moisture Exam: Warm/Dry HEENT: Atraumatic, PERRLA Neck: Supple Cardiovascular: Regular Rate, Normal S1, Normal S2, No Murmurs Lungs: Clear to Auscultation, Normal Air Movement Abdomen: Normal Bowel Sounds, Soft, obese Extremities: chronic lymph edema BLE. see skin exam regarding RLE Assessment/Plan Assessment: 57 year old female with PMH SLE, RA, Septic joint s/p Left Knee replacement and subsequent revision 2017, HTN, fibromyalgia admitted for RLE cellulitis. She is currently being treated with IV unasyn per ID recommendations. She has a slightly atypical presentation for cellulitis with no leukocytosis and afebrile throughout this hospital course. She is however improving clinically with IV abx. Patient expressed possible relation of rash to discoid SLE. This is unlikely as discoid SLE rash appears smaller in size and more disc-shaped. This cannot be completely ruled out however. #RLE cellulitis -IV unasyn 3g q6hr for 3-5 days; currently day 2/3-5 -consider d/c home selfcare today #rash and itching to skin folds -nystatin powder per request of patient as she uses this regularly at home #Chronic illnesses -continue home medications DVT prophylaxis: lovenox/ALPS/ambulation Problem List: 1. Cellulitis of right lower leg Pain Ratin Pain Location: none Pain Goal: Remain pain free Pain Plan: see a/p Tomorrow's Labs & Rationales: none
[2017-12-27 22:40] VITALS: BP 134/88
[2017-12-28 07:02] VITALS: BP 130/82
--- NOTE | 2017-12-28 07:46 | PN- Housestaff ---
See Addendum Subjective Follow-up For: RLE cellulitis Complaints: discomfort from dressing on RLE overnight 2/2 swelling Subjective: Patient states she experienced discomfort in her RLE overnight and suspects it was d/t the dressing becoming too tight. She had the dressing applied for showering because she has some areas of open weeping serous fluid. I took the dressing down this morning and she feels better. Denies fever, chills, n/v/d, chest pain, SOB, abd pain. Review of Systems Constitutional: Reports: see HPI. Objective Last 24 Hrs of Vital Signs/I&O Vital Signs Date Time Temp Pulse Resp B/P B/P Pulse O2 O2 Flow FiO2 Mean Ox Delivery Rate 12/28 0702 98.0 86 20 130/82 94 12/27 2240 98.4 80 20 134/88 96 Room Air Intake & Output 12/28 1600 / 0800 07 0000 Intake Total 200 320 Output Total 300 Balance 200 20 Intake, IV 120 Intake, Oral 200 200 Output, Urine 300 Physical Exam General Appearance: Alert, Oriented X3, Cooperative, No Acute Distress Skin: RLE with receding erythema. Non tender to palpation. Scattered small areas with skin breakdown and weeping serous fluid. motor and sensory intact to RLE. Skin Temp/Moisture Exam: Warm/Dry HEENT: Atraumatic, PERRLA Neck: Supple Cardiovascular: Regular Rate, Normal S1, Normal S2 Lungs: Clear to Auscultation, Normal Air Movement Abdomen: Normal Bowel Sounds, Soft, No Tenderness, obese Extremities: chronic lymphedema BLE Assessment/Plan Assessment: 57 year old female with PMH SLE, RA, Septic joint s/p Left Knee replacement and subsequent revision 2017, HTN, fibromyalgia admitted for RLE cellulitis. She is currently being treated with IV unasyn per ID recommendations. She has a slightly atypical presentation for cellulitis with no leukocytosis and afebrile throughout this hospital course. She is however improving clinically with IV abx. Patient expressed possible relation of rash to discoid SLE. This is unlikely as discoid SLE rash appears smaller in size and more disc-shaped. This cannot be completely ruled out however. #RLE cellulitis -IV unasyn 3g q6hr -Will likely benefit from longer course of abx treatment 2/2 chronic lymphedema per ID -Will change to Augmentin 875mg PO upon discharge -consider d/c home selfcare today vs one more day of inpatient IV abx. #rash and itching to skin folds -nystatin powder per request of patient as she uses this regularly at home #Chronic illnesses -continue home medications DVT prophylaxis: lovenox/ALPS/ambulation Problem List: 1. Cellulitis 2. Lymphedema Pain Ratin Pain Location: none Pain Goal: Remain pain free Pain Plan: see a/p Tomorrow's Labs & Rationales: none
[2017-12-28 10:14] VITALS: BP 148/60
--- NOTE | 2017-12-28 11:28 | PN- Infect Dx ---
Subjective Subjective: Afebrile. She notes minimal discomfort in the right leg. Objective Last 24 Hrs of Vital Signs/I&O Vital Signs Date Time Temp Pulse Resp B/P B/P Pulse O2 O2 Flow FiO2 Mean Ox Delivery Rate 12/28 1014 148/60 12/28 0901 79 164/81 12/28 0702 98.0 86 20 130/82 94 12/27 2240 98.4 80 20 134/88 96 Room Air Intake & Output 12/28 1600 12/28 0800 12/28 0000 Intake Total 200 320 Output Total 300 Balance 200 20 Intake, IV 120 Intake, Oral 200 200 Output, Urine 300 Physical Exam Other Physical Findings: She appears comfortable in no acute distress Extremities decreased erythema of the right leg, but with residual erythema and edema around her right ankle, with mild tenderness on palpation Results Last 24 Hours of Lab Results: Laboratory Tests 12/27 0650 Hematology CBC w Diff NO MAN DIFF REQ WBC (4.8 - 10.8 /CUMM) 4.9 RBC (4.20 - 5.40 /CUMM) 3.89 L Hgb (12.0 - 16.0 G/DL) 9.9 L Hct (37 - 47 %) 30.7 L MCV (81.0 - 99.0 FL) 79.1 L MCH (27.0 - 31.0 PG) 25.4 L MCHC (33.0 - 37.0 G/DL) 32.1 L RDW (11.5 - 14.5 %) 17.6 H Plt Count (130 - 400 /CUMM) 325 MPV (7.4 - 10.4 FL) 7.6 Gran % (42.2 - 75.2 %) 34.0 L Lymphocytes % (20.5 - 51.1 %) 49.9 Monocytes % (1.7 - 9.3 %) 9.6 H Eosinophils % (0 - 5 %) 5.7 H Basophils % (0.0 - 2.0 %) 0.8 Absolute Granulocytes (1.4 - 6.5 /CUMM) 1.7 Absolute Lymphocytes (1.2 - 3.4 /CUMM) 2.5 Absolute Monocytes (0.10 - 0.60 /CUMM) 0.5 Absolute Eosinophils (0.0 - 0.7 /CUMM) 0.3 Absolute Basophils (0.0 - 0.2 /CUMM) 0 Last 24 Hours of Ibrahima Results: Blood cultures December 24 negative Assessment/Plan ID Impression: Stable, with her temperatures and white blood cell count remaining normal, on Unasyn, Day 4 of treatment for presumed cellulitis of the right lower extremity, though the absence of fever, leukocytosis and significant tenderness makes cellulitis somewhat unusual. She appears to be improving slowly and, given her history of discoid lupus, the possibility that her skin lesions are a manifestation of this could be considered. Suggestion: 1. Dermatology and Rheumatology evaluations of she does not continue to improve 2. Continue elevation of the right lower extremity 3. Continue Unasyn, with change to Augmentin 2 grams (extended release tablets) p.o. every 12 hours if continues to improve to complete a 10 day course of treatment
[2017-12-28] MEDS ORDERED: AUGMENTIN XR 11 EACH PO ×2 (11:50→11:54)
--- NOTE | 2017-12-28 11:56 | Patient Discharge Instructions ---
Discharge Instructions General Discharge Information You were seen/treated for: Cellulitis Watch for these problems: Fever, chest pain, shortness of breath Special Instructions: Please take all medications as directed. Please follow-up with primary care. Please follow-up with dermatology if your rash does not improve. Diet Continue normal diet: Yes Activity Full Activity/No Limits: Yes Acute Coronary Syndrome Inclusion Criteria At DC or during hospital stay patient has or had the following: ACS DIAGNOSIS No Discharge Core Measures Meds if any: Prescribed or Continued at Discharge Meds if any: NOT Prescribed or Continued at Discharge Congestive Heart Failure Inclusion Criteria At DC or during hospital stay patient has or had the following: CHF DIAGNOSIS No Discharge Core Measures Meds if any: Prescribed or Continued at Discharge Meds if any: NOT Prescribed or Continued at Discharge Cerebrovascular accident Inclusion Criteria At DC or during hospital stay patient has or had the following: CVA/TIA Diagnosis No Discharge Core Measures Meds if any: Prescribed or Continued at Discharge Meds if any: NOT Prescribed or Continued at Discharge Venous thromboembolism Inclusion Criteria VTE Diagnosis No VTE Type NONE VTE Confirmed by (Test) NONE Discharge Core Measures - Per Current guidelines, there needs to be overlap - treatment for the first 5 days of Warfarin therapy. - If discharged on Warfarin prior to 5 days of - overlap therapy, the patient will need to be - assessed for post discharge needs including - *Post discharge parental anticoagulation - *Warfarin and/or parental anticoagulation education - *Follow up date to check INR post discharge At least 5 days overlap therapy as Inpatient No Meds if any: Prescribed or Continued at Discharge Note: Overlap Therapy is Warfarin and Anticoagulant Meds if any: NOT Prescribed or Continued at Discharge
[2017-12-28] MEDS ORDERED: HYDROXYCHLOROQ200 M2 PO (12:39)
[2017-12-28] MEDS ORDERED: ZALEPLON PO (12:39)
== END 2017-12-28 15:05 | disposition home health service (06) | DRG 603 ==
LOC: ERH 20:43 → ERHI 22:40 → 2NB 22:40 → ENRESERV 23:40 → 2NB 12-25 00:22 → ENTRNSPT 12-28 14:56 → EDTRNSPT 12-28 14:58 → EDTRNSPTSTS 12-28 14:58 → 2NB 12-28 15:05 → CMPTRNSPT 12-28 15:20
PROVIDERS: Internal Medicine; Physician Assistant Medical
DX: L03.115 Cellulitis of right lower limb (principal); Z68.43 Body mass index [BMI] 50.0-59.9, adult; E66.01 Morbid (severe) obesity due to excess calories; M32.9 Systemic lupus erythematosus, unspecified; M06.9 Rheumatoid arthritis, unspecified; M79.7 Fibromyalgia; G47.33 Obstructive sleep apnea (adult) (pediatric); Z96.652 Presence of left artificial knee joint; Z79.891 Long term (current) use of opiate analgesic
CPT/HCPCS: 2NBSP; ERO; 36415; 36592; 82436; 87040; 93005; 93010; J1650

== ENCOUNTER 2018-03-20 15:28 | Emergency (ER) | payer OTHER ==
[~2018-03-20] VITALS: Ht 157.5 cm; Wt 136.1 kg
[~2018-03-20 15:28] MED LIST changes: +AUGMENTIN XR 11 EACH PO; +HYDROXYCHLOROQ200 M2 PO; +MELATONIN3 M4 PO; +ZALEPLON PO
[2018-03-20 16:13] LABS: ABSOLUTE BASOPHIL COUNT 0 /CUMM (0.0-0.2); ABSOLUTE EOSINOPHIL COUNT 0.2 /CUMM (0.0-0.7); ABSOLUTE GRANULOCYTE CT 4.1 /CUMM (1.4-6.5); ABSOLUTE MONOCYTE COUNT 0.4 /CUMM (0.10-0.60); BASOPHIL % 0.6 % (0.0-2.0); EOSINOPHIL % 2.7 % (0-5); GRANULOCYTE % 60.7 % (42.2-75.2); HEMATOCRIT 35.4 % (37-47); MEAN CORPUSCULAR HGB CONC 32.4 G/DL (33.0-37.0); MEAN CORPUSCULAR VOLUME 80.3 FL (81.0-99.0); MEAN PLATELET VOLUME 7.8 FL (7.4-10.4); PLATELET COUNT 298 /CUMM (130-400); RBC DISTRIBUTION WIDTH 18.5 % (11.5-14.5); WHITE BLOOD CELL COUNT 6.8 /CUMM (4.8-10.8)
--- NOTE | 2018-03-20 18:05 | ULTRASOUND REPORT ---
EXAMINATION: US TRIPLEX LOWER EXTREMITY, RIGHT CLINICAL INFORMATION: Edema. COMPARISON: None TECHNIQUE: Color-flow triplex imaging with spectral analysis and compression Doppler were performed on the lower extremity. FINDINGS: Exam limited by body habitus. Respiratory variation, normal compression and augmented flow are noted throughout the lower extremity. The visualized common femoral vein, superficial femoral vein, profunda femoral vein, popliteal vein and midcalf peroneal and posterior tibial venous segments show no evidence of deep venous thrombosis. There is no Mckay's cyst. IMPRESSION: No evidence of deep venous thrombosis involving the lower extremity.
[2018-03-20] MEDS ORDERED: BACTRIM DS TAB1 EACH PO (18:46)
[2018-03-20] MEDS ORDERED: KEFLEX500 M1 PO (18:46)
--- NOTE | 2018-03-20 18:48 | ED GENERAL ADULT ---
History of Present Illness General Chief Complaint: Lower Extremity Problems Stated Complaint: RLE RED,SWOLLEN, PAINFUL Source: patient Exam Limitations: no limitations Vital Signs & Intake/Output Vital Signs & Intake/Output Vital Signs Date Time Temp Pulse Resp B/P B/P Pulse O2 O2 Flow FiO2 Mean Ox Delivery Rate 03/20 1738 Room Air 03/20 1537 98.9 81 16 149/76 95 Allergies Coded Allergies: NO KNOWN ALLERGIES (UNKNOWN 10/22/16) Reconcile Medications Amoxicillin/Potassium Clav (Augmentin 875-125 Tablet) 875 MG-125 MG TABLET 1 TAB PO BID CELLULITIAS Amoxicillin/Potassium Clav (Augmentin XR 1,000-62.5 Tab) 1,000 MG-62.5 MG TAB.ER.12H 2 TAB PO BID CELLULITIS with food Amoxicillin/Potassium Clav (Augmentin XR 1,000-62.5 Tab) 1,000 MG-62.5 MG TAB.ER.12H 2 TAB PO BID Cellulitis with food. Cephalexin (Keflex) 500 MG CAPSULE 1 CAP PO 4 TIMES/DAY cellulitis Duloxetine HCl 30 MG CAPSULE.DR 30 MG PO QHS NERVE PAIN (Reported) Duloxetine HCl (Cymbalta) 60 MG CAPSULE.DR 1 CAP PO DAILY PAIN (Reported) Hydroxychloroquine Sulfate 200 MG TABLET 1 TAB PO DAILY LUPUS (Reported) Lactobacillus Acidophilus (Acidophilus) 1 EACH CAPSULE 1 CAP PO DAILY PROBIOTIC . Lisinopril 40 MG TABLET 1 TAB PO DAILY BP (Reported) Melatonin 3 MG TABLET 2 TAB PO QPM INSOMNIA (Reported) Morphine Sulfate (Morphine Sulfate ER) 120 MG CPMP.24HR 1 CAP PO QAM PAIN ( Reported) Oxycodone HCl 15 MG TABLET 1 TAB PO Q4H PAIN (Reported) Sulfamethoxazole/Trimethoprim (Bactrim Ds Tablet) 800 MG-160 MG TABLET 1 TAB PO BID cellulitis Triamcinolone Acetonide 0.1 % CREAM..G. 1 CAROL ANN TOP PRN SKIN (Reported) Zaleplon 5 MG CAPSULE 1-2 CAP PO QHS INSOMNIA (Reported) Triage Note: PT PRESENTS TO THE ER WITH RIGHT LEG, RED, SWOLLEN AND CELLULITIS. SITE IS SWOLLEN AND RED AND IS WEEPING. SLOATH TO WOULD ON THE OUTSIDE LOWER RIGHT LEG. Triage Nurses Notes Reviewed? yes Onset: Gradual Duration: day(s): Timing: constant HPI: 57-year-old female with a history of hypertension, morbid obesity, LUIS, rheumatoid arthritis, lupus, chronic recurrent cellulitis of the right lower extremity presenting with acute cellulitis to the right lower extremity over the past 3-4 days. She had previously had a small vascular ulcer to the lateral lower extremity for which she saw her PMD. She was given Santyl to apply to the area and has been using with good improvement. Now with surrounding redness and swelling to the area over the past few days. Patient reports she gets cellulitis to the same extremity several times a year. She reports she comes to the emergency department and to receive a single dose of IV antibiotics and will then be sent home with oral antibiotics, and this method usually has good effect. She does not wish to be admitted. She has an appointment with her PMD for evaluation tomorrow, but states she wanted to get her antibiotics started prior to being seen. Denies fevers, nausea, vomiting. Past History Travel History Traveled to [place] past 21 day No Medical History Any Pertinent Medical History? see below for history Neurological: NONE EENT: DEVIATED SEPTUM Cardiovascular: hypertension Respiratory: obstructive sleep apnea Gastrointestinal: NONE Hepatic: NONE Renal: NONE Musculoskeletal: fibromyalgia, rheumatoid arthritis Psychiatric: NONE Endocrine: NONE Other Medical Hx: morbid obesity discoid lupus chronic pain lymphedema both lower extremities History of MRSA: No History of VRE: No History of CDIFF: No Tetanus Vaccine: 10/22/16 Surgical History Surgical History: knee replacement (left) Psychosocial History Who do you live with Spouse Services at Home Home Health Aide, Physical Therapy What is your primary language [place]an Tobacco Use: Never used Family History Family History, If Any: FATHER (lung cancer). grandmother (HTN, DM). Hx Contributory? No Review of Systems Review of Systems Constitutional: Reports: no symptoms. EENTM: Reports: no symptoms. Respiratory: Reports: no symptoms. Cardiovascular: Reports: no symptoms. GI: Reports: no symptoms. Genitourinary: Reports: no symptoms. Musculoskeletal: Reports: no symptoms. Skin: Reports: see HPI. Neurological/Psychological: Reports: no symptoms. Hematologic/Endocrine: Reports: no symptoms. Immunologic/Allergic: Reports: no symptoms. All Other Systems: Reviewed and Negative Physical Exam Physical Exam General Appearance: well developed/nourished, no apparent distress, alert, awake Comments: Gen.: Well-nourished, well-developed, no acute distress. Head: Normocephalic, atraumatic. Eyes: Normal inspection bilaterally Ears: Normal inspection bilaterally Nose: Normal inspection Neck: Normal inspection Lungs: clear to auscultation bilaterally, normnal breath sounds Heart: regular rate and rhythm Abdomen: soft and non-tender Extremities: Erythema, edema, increased warmth to the distal right lower extremity, there is a small vascular ulcer to the lateral aspect, no purulent drainage, unrestricted range of motion at the knee and ankle joints. The extremity is neurovascularly intact. She is able to bear weight and ambulate using her cane. Neurologic: alert and oriented x3, steady gait Skin: warm and dry Psychiatric: Normal mood and affect, no apparent delusions or hallucinations, behavior appropriate Core Measures ACS in differential dx? No CVA/TIA Diagnosis: No Sepsis Present: No Sepsis Focused Exam Completed? No Progress Differential Diagnoses I considered the following diagnoses in my evaluation of the patient: [ Cellulitis versus abscess versus sepsis versus DVT] Plan of Care: Orders Procedure Date/time Status LACTIC ACID 03/20 1537 Complete COMPREHENSIVE METABOLIC PANEL 03/20 1537 Complete CBC WITHOUT DIFFERENTIAL 03/20 1537 Complete Laboratory Tests 03/20/18 1837: Lactic Acid Cancelled 03/20/18 1604: Anion Gap 7, Estimated GFR > 60, BUN/Creatinine Ratio 40.0 H, Glucose 114 H, Lactic Acid 0.7, Calcium 10.6 H, Total Bilirubin 0.2, AST 30, ALT 13, Alkaline Phosphatase 102, Total Protein 9.3 H, Albumin 4.0, Globulin 5.3 H, Albumin/ Globulin Ratio 0.8 L, CBC w Diff NO MAN DIFF REQ, RBC 4.40, MCV 80.3 L, MCH 26.0 L, MCHC 32.4 L, RDW 18.5 H, MPV 7.8, Gran % 60.7, Lymphocytes % 30.3, Monocytes % 5.7, Eosinophils % 2.7, Basophils % 0.6, Absolute Granulocytes 4.1, Absolute Lymphocytes 2.0, Absolute Monocytes 0.4, Absolute Eosinophils 0.2, Absolute Basophils 0 Ultrasound negative for DVT. Labs show baseline anemia. No signs of systemic infection, normal WBC and lactic acid. Vital signs are within normal limits. Patient is afebrile and nontoxic-appearing. She received a single dose of IV vancomycin. She will be sent home with Keflex and Bactrim. She will see her PMD tomorrow as scheduled and will return to the emergency department in 2 days for a wound check. Given strict return precautions. The borders of her cellulitis were marked. Initial ED EKG: none Departure Departure Disposition: HOME OR SELF CARE Condition: Stable Clinical Impression Primary Impression: Cellulitis Referrals: Jun Green MD (PCP/Family) Additional Instructions: Take Keflex and Bactrim as prescribed. Follow-up with your primary care provider tomorrow for reevaluation. Return to the emergency department in 2 days for a wound check. Return to the emergency department sooner for any new or worsening symptoms, including but not limited to fevers, vomiting, redness spreading beyond the borders of the skin marker. Departure Forms: Customer Survey General Discharge Information Prescriptions: Current Visit Scripts Cephalexin (Keflex) 1 CAP PO 4 TIMES/DAY #40 CAP Sulfamethoxazole/Trimethoprim (Bactrim Ds Tablet) 1 TAB PO BID #20 TAB Critical Care Note Critical Care Note Critical Care Time: non-applicable
[2018-03-20 18:58] VITALS: BP 185/85
== END 2018-03-20 19:08 ==
LOC: ERH 15:28
PROVIDERS: Physician Assistant
DX: L03.115 Cellulitis of right lower limb (principal); M79.89 Other specified soft tissue disorders; I10 Essential (primary) hypertension; M32.9 Systemic lupus erythematosus, unspecified
CPT/HCPCS: 96374; J3370; J7040